=== PATIENT | male | born 1955 | race Caucasian/White ===

== ENCOUNTER → 2019-09-10 | Outpatient (CLI) | payer MEDICARE, MEDICAID ==
--- NOTE | 2019-09-10 09:43 | Diagnostic Imaging Report ---
PROCEDURE: CT head without contrast. TECHNIQUE: Multiple contiguous axial images were obtained through the brain without the use of intravenous contrast. Auto Exposure Controls were utilized during the CT exam to meet ALARA standards for radiation dose reduction. INDICATION: Stroke. Dysphagia. COMPARISON: None. FINDINGS: Large area of encephalomalacia involving most of the right frontal lobe. Advanced generalized cerebral and cerebellar parenchymal volume loss. Advanced leukoaraiosis. No CT evidence of an acute territorial infarction. No intracranial hemorrhage. No mass effect or hydrocephalus. Old abimbola hole in the right frontal calvarium. The visualized paranasal sinuses and mastoids are clear. IMPRESSION: 1. No acute intracranial CT findings. 2. Large region of encephalomalacia likely due to chronic infarct involving most of the right frontal lobe. Dictated by: Dictated on workstation # [id number]
== END ==
LOC: RAD FS 08:36
PROVIDERS: ATTEND Psychiatry & Neurology Neurology
DX: I69.391 Dysphagia following cerebral infarction (principal); G93.89 Other specified disorders of brain
CPT/HCPCS: 70450

== ENCOUNTER 2020-01-02 16:49 | Inpatient (IN) | payer MEDICARE, MEDICAID ==
[~2020-01-02] VITALS: Ht 170 cm; Wt 63.3 kg
[2020-01-02 17:00] LABS: BASOPHILS % (AUTO) 0 % (0-10); EOSINOPHILS % (AUTO) 0 % (0-10); HEMATOCRIT 37 % (40-54); HEMOGLOBIN 12.4 G/DL (13.3-17.7); LYMPHOCYTES % (AUTO) 17 % (12-44); MEAN CORPUSCULAR HEMOGLOBIN 30 PG (25-34); MEAN CORPUSCULAR HGB CONC 34 G/DL (32-36); MEAN CORPUSCULAR VOLUME 89 FL (80-99); MEAN PLATELET VOLUME 11.1 FL (7.4-10.4); MONOCYTES # (AUTO) 2.7 X 10^3 (0.0-1.0); MONOCYTES % (AUTO) 15 % (0-12); NEUTROPHILS # (AUTO) 12.7 X 10^3 (1.8-7.8); NEUTROPHILS % (AUTO) 69 % (42-75); PLATELET COUNT 222 10^3/uL (130-400); RED CELL DISTRIBUTION WIDTH 14.1 % (10.0-14.5); WHITE BLOOD COUNT 18.5 10^3/uL (4.3-11.0)
--- NOTE | 2020-01-02 17:04 | ED Hip Pain/Injury ---
General Chief Complaint: Hip/Pelvic Problems Stated Complaint: HIP INJ Source: patient Exam Limitations: no limitations History of Present Illness Date Seen by Provider: Jan 02, 2020 Time Seen by Provider: 17:01 Initial Comments To ER by [facility] with reports of left hip pain. He allegedly is from a snf in [place] for rehabilitation from stroke. He fell last night at about 2 AM, laid in bed all day. Mobile x-ray was ordered this afternoon showing an acute left intertrochanteric hip fracture. EMS gave 100 g of fentanyl in route to the hospital. He is DO NOT RESUSCITATE status. Primary care is Dr. Tena. Medical history includes major depression, hyperlipidemia, dysphasia, epilepsy (managed with Depakote) and history of CVA with encephalomalacia of majority of the right frontal lobe seen on recent brain CT. Timing/Duration: just prior to arrival Location: hip (L) Method of Injury: fell Associated Symptoms: denies symptoms Allergies and Home Medications Allergies Coded Allergies: metformin (Verified Allergy, Unknown, 01/02/20) Patient Home Medication List Home Medication List Reviewed: Yes Review of Systems Constitutional: see HPI EENTM: see HPI Respiratory: no symptoms reported Cardiovascular: no symptoms reported Genitourinary: no symptoms reported Musculoskeletal: no symptoms reported Skin: no symptoms reported Psychiatric/Neurological: No Symptoms Reported Physical Exam Vital Signs Vital Signs - First Documented 01/02/20 16:58 Temp 37.4 Pulse 123 Resp 18 B/P (MAP) 132/81 (98) Pulse Ox 94 Capillary Refill : Height, Weight, BMI Height: '" Weight: lbs. oz. kg; BMI Method: General Appearance: No Apparent Distress, WD/WN HEENT: PERRL/EOMI, TMs Normal Neck: Full Range of Motion, Normal Inspection Cardiovascular: Regular Rate, Rhythm, Normal Peripheral Pulses Respiratory: Normal Breath Sounds, No Accessory Muscle Use, No Respiratory Distress Gastrointestinal: Normal Bowel Sounds, Non Tender, Soft Extremity: No Pedal Edema, Other (left hip pain and tenderness to palpation with increasing pain with any range of motion. The posterior tibial pulse on the left is +1 as it is on the right. No other sign of injury.) Neurologic/Psychiatric: Alert, Other (He is alert and looking around the room, when asked where we are at he states "hospital" however when asked what year it is he states that he does know the year but is unable to tell me what year it is.) Skin: Normal Color, Warm/Dry Progress/Results/Core Measures Results/Orders Lab Results Laboratory Tests Test 01/02/20 16:57 Range/Units White Blood Count 18.5 H 4.3-11.0 10^3/uL Red Blood Count 4.13 L 4.35-5.85 10^6/uL Hemoglobin 12.4 L 13.3-17.7 G/DL Hematocrit 37 L 40-54 % Mean Corpuscular Volume 89 80-99 FL Mean Corpuscular Hemoglobin 30 25-34 PG Mean Corpuscular Hemoglobin Concent 34 32-36 G/DL Red Cell Distribution Width 14.1 10.0-14.5 % Platelet Count 222 130-400 10^3/uL Mean Platelet Volume 11.1 H 7.4-10.4 FL Neutrophils (%) (Auto) 69 42-75 % Lymphocytes (%) (Auto) 17 12-44 % Monocytes (%) (Auto) 15 H 0-12 % Eosinophils (%) (Auto) 0 0-10 % Basophils (%) (Auto) 0 0-10 % Neutrophils # (Auto) 12.7 H 1.8-7.8 X 10^3 Lymphocytes # (Auto) 3.0 1.0-4.0 X 10^3 Monocytes # (Auto) 2.7 H 0.0-1.0 X 10^3 Eosinophils # (Auto) 0.0 0.0-0.3 10^3/uL Basophils # (Auto) 0.0 0.0-0.1 10^3/uL Neutrophils % (Manual) 68 % Lymphocytes % (Manual) 20 % Monocytes % (Manual) 11 % Band Neutrophils 1 % Blood Morphology Comment NORMAL Prothrombin Time 14.4 12.2-14.7 SEC INR Comment 1.1 0.8-1.4 Sodium Level 139 135-145 MMOL/L Potassium Level 4.7 3.6-5.0 MMOL/L Chloride Level 112 H 98-107 MMOL/L Carbon Dioxide Level 18 L 21-32 MMOL/L Anion Gap 9 5-14 MMOL/L Blood Urea Nitrogen 17 7-18 MG/DL Creatinine 0.90 0.60-1.30 MG/DL Estimat Glomerular Filtration Rate > 60 BUN/Creatinine Ratio 19 Glucose Level 123 H 70-105 MG/DL Calcium Level 8.4 L 8.5-10.1 MG/DL Corrected Calcium 8.8 8.5-10.1 MG/DL Total Bilirubin 0.3 0.1-1.0 MG/DL Aspartate Amino Transf (AST/SGOT) 27 5-34 U/L Alanine Aminotransferase (ALT/SGPT) 15 0-55 U/L Alkaline Phosphatase 86 40-136 U/L Total Protein 6.8 6.4-8.2 GM/DL Albumin 3.5 3.2-4.5 GM/DL My Orders Orders - ANDREIA SALGUERO APRN Cbc With Automated Diff (01/02/20 16:52) Comprehensive Metabolic Panel (01/02/20 16:52) Protime With Inr (01/02/20 16:52) Ua Culture If Indicated (01/02/20 16:52) Ed Iv/Invasive Line Start (01/02/20 16:52) Landrum Cath (01/02/20 16:52) Chest 1 View, Ap/Pa Only (01/02/20 16:52) Pelvis With Left Hip 2-3 Views (01/02/20 16:52) Manual Differential (01/02/20 16:57) Ct Head/Cervical Spine Wo (01/02/20 17:04) Fentanyl Injection (Sublimaze Injection (01/02/20 17:15) Medications Given in ED Current Medications Medications Dose Ordered Sig/Apple Route Start Time Stop Time Status Last Admin Dose Admin Fentanyl Citrate 50 mcg ONCE ONCE IVP 01/02/20 17:15 01/02/20 17:16 DC 01/02/20 17:20 50 MCG Vital Signs/I&O 01/02/20 16:58 Temp 37.4 Pulse 123 Resp 18 B/P (MAP) 132/81 (98) Pulse Ox 94 Departure Communication (Admissions) NAME: MANDEEP GRAHAM [facility] REC#: [id number] PT STATUS: REG ER : 1955 PHYSICIAN: ANDREIA SALGUERO APRN ADMIT DATE: 01/02/20/ER Draft Date of Exam:01/02/20 CT HEAD/CERVICAL SPINE WO PROCEDURE: CT head and CT cervical spine without contrast. TECHNIQUE: Multiple contiguous axial images were obtained through the brain and cervical spine without the use of intravenous contrast. Sagittal and coronal reformations through the cervical spine were then performed. Auto Exposure Controls were utilized during the CT exam to meet ALARA standards for radiation dose reduction. INDICATION: Fell. Head and neck pain. CT HEAD: FINDINGS: The previous CT head exam of 09/10/2019 noted a large area of encephalomalacia involving most of the right frontal lobe. That finding is again evident and no different. There are also diffuse areas of diminished density in the periventricular white matter of both frontal lobes. That finding is similar to the prior study as well. There is no mass, shift of the midline, or hemorrhage to indicate an acute abnormality. The bone windows show no evidence for a skull fracture or for a destructive lesion. The defect in the right frontal bone seen on the previous study is again evident and no different. The orbits are symmetrical. The sinuses are generally clear. IMPRESSION: 1. There is no evidence for an acute intracranial abnormality. 2. If clinical concern regarding an underlying abnormality persists, then MRI will be recommended for further study. CT CERVICAL SPINE: FINDINGS: There are no prior studies available for comparison. The reconstructed parasagittal images show the vertebral body heights and alignment to be generally within normal limits. The intervertebral disc spaces are fairly well maintained. There is no fracture or acute bony abnormality evident. There is no evidence for a retropharyngeal edema. The thyroid gland is not enlarged, but there is a rounded area of low density within the left lobe. Ultrasound would be recommended for further study. The lung apices are clear. IMPRESSION: 1. There is no evidence for an acute bony abnormality. 2. The rounded area of low density within the left lobe of the thyroid should be further evaluated by ultrasound. Dictated on workstation # [id number] Dict: 01/02/20 1741 Trans: 01/02/20 1752 [id number] Interpreted by: MATTEO SOLO MD Electronically signed by: Impression Primary Impression: Hip fracture Qualified Codes: S72.002A - Fracture of unspecified part of neck of left femur, initial encounter for closed fracture Disposition: ADMITTED INPATIENT Condition: Stable Admissions Decision to Admit Reason: Admit from ER (Trauma) Decision to Admit/Date: Jan 02, 2020 Time/Decision to Admit Time: 17:22 Departure-Patient Inst. Referrals: MICHAEL TENA MD (PCP/Family) Primary Care Physician ANDREIA SALGUERO APRN Jan 02, 2020 17:04
[2020-01-02 17:11] LABS: ALBUMIN 3.5 GM/DL (3.2-4.5); CHLORIDE 112 MMOL/L (98-107); POTASSIUM 4.7 MMOL/L (3.6-5.0); SODIUM 139 MMOL/L (135-145)
[2020-01-02 17:12] LABS: CALCIUM 8.4 MG/DL (8.5-10.1)
[2020-01-02 17:13] LABS: GLUCOSE 123 MG/DL (70-105); INR 1.1 (0.8-1.4); PROTHROMBIN TIME PATIENT 14.4 SEC (12.2-14.7)
[2020-01-02 17:14] LABS: TOTAL PROTEIN 6.8 GM/DL (6.4-8.2)
[2020-01-02 17:15] LABS: BILIRUBIN,TOTAL 0.3 MG/DL (0.1-1.0); CARBON DIOXIDE 18 MMOL/L (21-32)
[2020-01-02] MEDS ORDERED: fentaNYL INJECTION 100 MCG/2 ML AMP IVP ONE (17:15)
[2020-01-02 17:17] LABS: ALKALINE PHOSPHATASE 86 U/L (40-136); GFR ESTIMATED > 60
[2020-01-02 17:18] LABS: BUN/CREATININE RATIO 19
[2020-01-02 17:20] LABS: ALANINE AMINOTRANSFERASE 15 U/L (0-55)
[2020-01-02] MEDS ORDERED: ACET325T38 PO (17:35)
[2020-01-02] MEDS ORDERED: TOPI50TA13 PO (17:35)
[2020-01-02] MEDS ORDERED: [UNRECOGNIZED DRUG - CODE] IV (17:35)
[2020-01-02] MEDS ORDERED: ONDN4T PO (17:35)
[2020-01-02] MEDS ORDERED: [UNRECOGNIZED DRUG - CODE] MC (17:35)
[2020-01-02] MEDS ORDERED: CITA20TA12 PO (17:35)
[2020-01-02] MEDS ORDERED: VALP250S4 PO (17:35)
[2020-01-02] MEDS ORDERED: ACET325C7 PO (17:35)
[2020-01-02] MEDS ORDERED: PHEN26CR2 RC (17:35)
[2020-01-02] MEDS ORDERED: DOCU100T2 PO (17:35)
[2020-01-02 17:45] LABS: BAND NEUTROPHILS 1 %; LYMPHOCYTES % (MANUAL) 20 %; MONOCYTES % (MANUAL) 11 %; NEUTROPHILS % (MANUAL) 68 %; RBC MORPH NORMAL
--- NOTE | 2020-01-02 17:53 | Diagnostic Imaging Report ---
PROCEDURE: CT head and CT cervical spine without contrast. TECHNIQUE: Multiple contiguous axial images were obtained through the brain and cervical spine without the use of intravenous contrast. Sagittal and coronal reformations through the cervical spine were then performed. Auto Exposure Controls were utilized during the CT exam to meet ALARA standards for radiation dose reduction. INDICATION: Fell. Head and neck pain. CT HEAD: FINDINGS: The previous CT head exam of 09/10/2019 noted a large area of encephalomalacia involving most of the right frontal lobe. That finding is again evident and no different. There are also diffuse areas of diminished density in the periventricular white matter of both frontal lobes. That finding is similar to the prior study as well. There is no mass, shift of the midline, or hemorrhage to indicate an acute abnormality. The bone windows show no evidence for a skull fracture or for a destructive lesion. The defect in the right frontal bone seen on the previous study is again evident and no different. The orbits are symmetrical. The sinuses are generally clear. IMPRESSION: 1. There is no evidence for an acute intracranial abnormality. 2. If clinical concern regarding an underlying abnormality persists, then MRI will be recommended for further study. CT CERVICAL SPINE: FINDINGS: There are no prior studies available for comparison. The reconstructed parasagittal images show the vertebral body heights and alignment to be generally within normal limits. The intervertebral disc spaces are fairly well maintained. There is no fracture or acute bony abnormality evident. There is no evidence for a retropharyngeal edema. The thyroid gland is not enlarged, but there is a rounded area of low density within the left lobe. Ultrasound would be recommended for further study. The lung apices are clear. IMPRESSION: 1. There is no evidence for an acute bony abnormality. 2. The rounded area of low density within the left lobe of the thyroid should be further evaluated by ultrasound. Dictated by: Dictated on workstation # [id number]
--- NOTE | 2020-01-02 18:06 | Diagnostic Imaging Report ---
EXAMINATION: Supine chest at 6:00 PM INDICATION: Fell, noncommunicative There are no prior studies available for comparison. The heart size is within normal limits. The lungs are generally clear. There is no evidence for failure, pneumonia or for pleural effusion. There is no sign of a pneumothorax although a small pneumothorax could be present yet undetected on a supine film such as this. The mediastinum is not widened. The osseous structures are intact. There is a neurostimulator device in place on the left with the lead from the device overlying the left lateral aspect of the lower cervical spine. IMPRESSION: There is no evidence for an acute cardiopulmonary abnormality. Dictated by: Dictated on workstation # [id number]
--- NOTE | 2020-01-02 18:09 | Diagnostic Imaging Report ---
EXAMINATION: Pelvis and left hip INDICATION: Fell, hip pain Single AP view of the pelvis and AP and lateral views of the left hip were obtained. There are no prior studies available for comparison. There is an impacted slightly displaced fracture of the left femoral neck. No other fracture or acute bony abnormality is noted. There is moderate degenerative disease of both hip joints. The sacroiliac joints are obscured by bowel gas and fecal material. The soft tissues are unremarkable. IMPRESSION: There is a slightly displaced impacted fracture of the left femoral neck. There is no acute bony abnormality noted otherwise. Dictated by: Dictated on workstation # [id number]
[2020-01-02 18:20] LABS: BILIRUBIN,URINE NEGATIVE (NEGATIVE); CLARITY,URINE SL CLOUDY; COLOR,URINE YELLOW; GLUCOSE, URINE (UA) TRACE (NEGATIVE); KETONES,URINE NEGATIVE (NEGATIVE); LEUKOCYTE ESTERASE ,URINE NEGATIVE (NEGATIVE); NITRITE,URINE NEGATIVE (NEGATIVE); PH,URINE 7.5 (5-9); PROTEIN,URINE NEGATIVE (NEGATIVE)
[2020-01-02 18:41] LABS: AMORPHOUS SEDIMENT,UR FEW AMOR PHOSPHATE /LPF; BACTERIA,URINE NEGATIVE /HPF; WBC,URINE 0-2 /HPF
--- NOTE | 2020-01-02 19:30 | NUR ---
Callum Edi admitted to room 413-1, with an admitting diagnosis of left hip fracture , on 01/02/20 from AM via stretcher, accompanied by staff .CALLUM GRAHAM introduced to surroundings, call light, bed controls, phone, TV, temperature control, lights, meal times, smoking policy, visitor policy, side rail policy, bathrooms and showers. Patient Rights given to patient in the handbook.CALLUM GRAHAM verbalizes understanding that [facility] is not responsible for the loss or damage to any personal effects or valuables that are kept in the patients posession during their hospitalization. Addendum: 01/02/20 at 2208 by DEVANG DAMIAN RN Callum Damian
[2020-01-02 19:43] VITALS: BP 145/91
[2020-01-02 20:00] VITALS: BP 145/91
[2020-01-02] MEDS ORDERED: ONDANSETRON 4 MG/2 ML (SDV) Z0FRAN IV PRN (20:00)
[2020-01-02] MEDS ORDERED: ORPHENADRINE 60 MG/2 ML (NORFLEX) AMP (ED ONLY) IV PRN (20:00)
[2020-01-02] MEDS ORDERED: CATHETER FLUSH 10 ML SYR IV PRN (20:00)
[2020-01-02] MEDS ORDERED: LOPERAMIDE 2 MG (IMODIUM) TABLET PO PRN (20:30)
[2020-01-02] MEDS ORDERED: ALPRAZolam 0.25 MG (XANAX) TAB PO PRN (20:30)
[2020-01-02] MEDS ORDERED: IBUPROFEN TABLET 200 MG TAB PO PRN (20:30)
[2020-01-02] MEDS ORDERED: ACETAMINOPHEN 500 MG TAB (TYLENOL) PO PRN (20:30)
[2020-01-02] MEDS ORDERED: DOCUSATE SODIUM 100 MG (COLACE) CAP PO PRN (20:30)
[2020-01-02] MEDS ORDERED: diphenhydrAMINE 25 MG TAB (BENADRYL) PO PRN (20:30)
[2020-01-02] MEDS ORDERED: HYDROcodone/APAP 5 MG/325 MG (LORTAB) TAB PO PRN (20:30)
[2020-01-02] MEDS ORDERED: MELATONIN 3 MG TABLET PO PRN (20:30)
[2020-01-02] MEDS ORDERED: CALCIUM CARBONATE 500 MG (TUMS) TAB.CHEW PO PRN (20:30)
[2020-01-02] MEDS ORDERED: SENNA W/DOCUSATE (SENOKOT S) TABLET PO SCH (21:00)
[2020-01-02] MEDS: fentaNYL INJECTION 100 MCG/2 ML AMP IV PRN (21:01)
[2020-01-02] MEDS: LACTATED RINGERS 1,000 ML IV SCH (21:04)
[2020-01-02] MEDS: polyethylene glycoL POWDER 17 GM (MIRALAX) PACK PO SCH (21:04)
--- OUTSIDE RECORDS SUMMARY | 2020-01-02 21:46 | XMS REPORT | Continuity of Care Document ---
Author Organization Unknown Address Unknown Phone Unavailable Allergies Active Description Code Type Severity Reaction Onset Reported/Identified Relationship to Patient Clinical Status Yes fentanyl [id number] Drug Allergy Unknown N/A 01/02/2020 Yes metformin [id number] Drug Allergy Unknown N/A 01/02/2020 Medications There is no data. 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 FOLLOWING CEREBRAL INFARCTION 09/23/2019 JAIME CAR MD K Ot G93.89 OTHER SPECIFIED DISORDERS OF BRAIN 09/23/2019 JAIME CAR MD K Ot 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 FOLLOWING CEREBRAL INFARCTION 11/07/2019 JAIME CAR MD K Ot G93.89 OTHER SPECIFIED DISORDERS OF BRAIN 11/07/2019 JAIME CAR MD K Ot 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 FOLLOWING CEREBRAL INFARCTION 11/07/2019 JAIME CAR MD K Ot G93.89 OTHER SPECIFIED DISORDERS OF BRAIN 11/07/2019 JOCELINE CLARK JAIME K Ot 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 FOLLOWING CEREBRAL INFARCTION 11/07/2019 JOCELINE CLARK JAIME K Ot G93.89 OTHER SPECIFIED DISORDERS OF BRAIN 11/07/2019 JOCELINE CLARK JAIME K Ot 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 FOLLOWING CEREBRAL INFARCTION 11/26/2019 JAIME CAR MD K Ot G93.89 OTHER SPECIFIED DISORDERS OF BRAIN 11/26/2019 JOCELINE CLARK JAIME K Ot 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 FOLLOWING CEREBRAL INFARCTION 11/26/2019 JAIME CAR MD K Ot G93.89 OTHER SPECIFIED DISORDERS OF BRAIN 11/26/2019 JAIME CAR MD Ot 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 FOLLOWING CEREBRAL INFARCTION 11/26/2019 JAIME CAR MD Ot G93.89 OTHER SPECIFIED DISORDERS OF BRAIN 11/26/2019 JAIME CAR MD Ot 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 FOLLOWING CEREBRAL INFARCTION 11/26/2019 JAIME CAR MD, Ot G93.89 OTHER SPECIFIED DISORDERS OF BRAIN 11/26/2019 JAIME CAR MD Ot 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 FOLLOWING CEREBRAL INFARCTION 11/26/2019 JAIME CAR MD, Ot G93.89 OTHER SPECIFIED DISORDERS OF BRAIN 11/26/2019 JAIME CAR MD, Ot 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 Results Test Result Range VALPROIC ACID/DEPAKOTE - 10/22/18 12:44 VALPROIC ACID 53.8 mg/L 50.0-100.0 CMP - 12/12/18 09:55 GLUCOSE 168 mg/dL 65-99 UREA NITROGEN (BUN) 24 mg/dL 7-25 CREATININE 1.07 mg/dL 0.70-1.25 eGFR NON-AFR. PANAMANIAN 73 mL/min/1.73m2 > OR = 60 eGFR 85 mL/min/1.73m2 > OR = 60 BUN/CREATININE RATIO NOT APPLICABLE (calc) 6-22 SODIUM 141 mmol/L 135-146 POTASSIUM 4.3 mmol/L 3.5-5.3 CHLORIDE 106 mmol/L 98-110 CARBON DIOXIDE 26 mmol/L 20-32 CALCIUM 9.3 mg/dL 8.6-10.3 PROTEIN, TOTAL 6.5 g/dL 6.1-8.1 ALBUMIN 3.8 g/dL 3.6-5.1 GLOBULIN 2.7 g/dL (calc) 1.9-3.7 ALBUMIN/GLOBULIN RATIO 1.4 (calc) 1.0-2. 5 BILIRUBIN, TOTAL 0.4 mg/dL 0.2-1.2 ALKALINE PHOSPHATASE 53 U/L 40-115 AST 15 U/L 10-35 ALT 10 U/L 9-46 CBC - 12/12/18 09:55 WHITE BLOOD CELL COUNT 8.5 Thousand/uL 3 .8-10.8 RED BLOOD CELL COUNT 4.73 Million/uL 4.2 0-5.80 HEMOGLOBIN 15.0 g/dL 13.2-17.1 HEMATOCRIT 45.1 % 38.5-50.0 MCV 95.3 fL 80.0-100.0 MCH 31.7 pg 27.0-33.0 MCHC 33.3 g/dL 32.0-36.0 RDW 13.1 % 11.0-15.0 PLATELET COUNT 147 Thousand/uL 140-400 MPV 10.8 fL 7.5-12.5 ABSOLUTE NEUTROPHILS 4267 cells/uL 1500- 7800 ABSOLUTE LYMPHOCYTES 3273 cells/uL 850-3 900 ABSOLUTE MONOCYTES 774 cells/uL 200-950 ABSOLUTE EOSINOPHILS 128 cells/uL 15-500 ABSOLUTE BASOPHILS 60 cells/uL 0-200 NEUTROPHILS 50.2 % NRG LYMPHOCYTES 38.5 % NRG MONOCYTES 9.1 % NRG EOSINOPHILS 1.5 % NRG BASOPHILS 0.7 % NRG CBC - 12/20/18 09:05 WHITE BLOOD CELL COUNT 10.3 Thousand/uL 3.8-10.8 RED BLOOD CELL COUNT 4.56 Million/uL 4.2 0-5.80 HEMOGLOBIN 14.2 g/dL 13.2-17.1 HEMATOCRIT 43.2 % 38.5-50.0 MCV 94.7 fL 80.0-100.0 MCH 31.1 pg 27.0-33.0 MCHC 32.9 g/dL 32.0-36.0 RDW 13.0 % 11.0-15.0 PLATELET COUNT 150 Thousand/uL 140-400 MPV 10.3 fL 7.5-12.5 ABSOLUTE NEUTROPHILS 5644 cells/uL 1500- 7800 ABSOLUTE LYMPHOCYTES 3533 cells/uL 850-3 900 ABSOLUTE MONOCYTES 896 cells/uL 200-950 ABSOLUTE EOSINOPHILS 144 cells/uL 15-500 ABSOLUTE BASOPHILS 82 cells/uL 0-200 NEUTROPHILS 54.8 % NRG LYMPHOCYTES 34.3 % NRG MONOCYTES 8.7 % NRG EOSINOPHILS 1.4 % NRG BASOPHILS 0.8 % NRG VALPROIC ACID/DEPAKOTE - 04/22/19 08:01 VALPROIC ACID 37.9 mg/L 50.0-100.0 VALPROIC ACID/DEPAKOTE - 07/22/19 08:05 VALPROIC ACID 68.8 mg/L 50.0-100.0 Complete blood count (CBC) with automate d white blood cell (WBC) differential - 01/02/20 16:57 Blood leukocytes automated count (number/volume) 18.5 10*3/uL 4.3-11.0 Blood erythrocytes automated count (number/volume) 4.13 10*6/uL 4.35-5.85 Venous blood hemoglobin measurement (mass/volume) 12.4 g/dL 13.3-17.7 Blood hematocrit (volume fraction) 37 % 40-54 Automated erythrocyte mean corpuscular volume 89 [ foz_us] 80-99 Automated erythrocyte mean corpuscular h emoglobin (mass per erythrocyte) 30 pg 25-34 Automated erythrocyte mean corpuscular h emoglobin concentration measurement (mass/volume) 34 g/dL 32-36 Automated erythrocyte distribution width ratio 14. 1 % 10.0- 14.5 Automated blood platelet count (count/volume) 222 10*3/uL 130-400 Automated blood platelet mean volume measurement 11.1 [foz_us] 7.4-10.4 Automated blood neutrophils/100 leukocytes 69 % 42-75 Automated blood lymphocytes/100 leukocytes 17 % 12-44 Blood monocytes/100 leukocytes 15 % 0-12 Automated blood eosinophils/100 leukocytes 0 % 0-10 Automated blood basophils/100 leukocytes 0 % 0-10 Blood neutrophils automated count (number/volume) 12.7 10*3 1.8-7.8 Blood lymphocytes automated count (number/volume) 3.0 10*3 1.0-4.0 Blood monocytes automated count (number/volume) 2. 7 10*3 0.0-1.0 Automated eosinophil count 0.0 10*3/uL 0 .0-0.3 Automated blood basophil count (count/volume) 0.0 10*3/uL 0.0-0.1 Comprehensive metabolic panel - 01/02/20 16:57 Serum or plasma sodium measurement (moles/volume) 139 mmol/L 135-145 Serum or plasma potassium measurement (moles/volume) 4.7 mmol/L 3.6-5.0 Serum or plasma chloride measurement (moles/volume) 112 mmol/L 98-107 Carbon dioxide 18 mmol/L 21-32 Serum or plasma anion gap determination (moles/volume) 9 mmol/L 5-14 Serum or plasma urea nitrogen measurement (mass/volume ) 17 mg/dL 7-18 Serum or plasma creatinine measurement (mass/volume) 0.90 mg/dL 0.60-1.30 Serum or plasma urea nitrogen/creatinine mass ratio 19 NRG Serum or plasma creatinine measurement w ith calculation of estimated glomerular filtration rate > NRG Serum or plasma glucose measurement (mass/volume) 123 mg/dL 70-105 Serum or plasma calcium measurement (mass/volume) 8.4 mg/dL 8.5-10.1 Serum or plasma total bilirubin measurement (mass/volu me) 0.3 mg/dL 0.1-1.0 Serum or plasma alkaline phosphatase daljit surement (enzymatic activity/volume) 86 U/L 40-136 Serum or plasma aspartate aminotransfera se measurement (enzymatic activity/volume) 27 U/L 5-34 Serum or plasma alanine aminotransferase measurement (enzymatic activity/volume) 15 U/L 0-55 Serum or plasma protein measurement (mass/volume) 6.8 g/dL 6.4-8.2 Serum or plasma albumin measurement (mass/volume) 3.5 g/dL 3.2-4.5 CALCIUM CORRECTED 8.8 mg/dL 8.5-10.1 PT panel in platelet poor plasma by coag ulation assay - 01/02/20 16:57 Prothrombin time (PT) in platelet poor plasma by coagu lation assay 14.4 s 12.2-14.7 INR in platelet poor plasma or blood by coagulation as say 1.1 0.8-1.4 Manual absolute plasma cell count - 12/21 09/11 16:57 Blood monocytes/100 leukocytes 11 % NRG Manual blood segmented neutrophils/100 leukocytes 68 % NRG Blood band neutrophils/100 leukocytes 1 % NRG Manual blood lymphocytes/100 leukocytes 20 % NRG Blood erythrocyte morphology finding identification NORMAL NRG Complete urinalysis with reflex to cultu re - 01/02/20 18:05 Urine color determination YELLOW NRG Urine clarity determination SL CLOUDY N RG Urine pH measurement by test strip 7.5 5-9 Specific gravity of urine by test strip 1.015 1.016-1.022 Urine protein assay by test strip, semi-quantitative NEGATIVE NEGATIVE Urine glucose detection by automated test strip TR MAURO NEGATIVE Erythrocytes detection in urine sediment by light micr oscopy NEGATIVE NEGATIVE Urine ketones detection by automated test strip NE GATIVE NEGATIVE Urine nitrite detection by test strip NEGATIVE NEGATIVE Urine total bilirubin detection by test strip NEGA TIVE NEGATIVE Urine urobilinogen measurement by automated test strip (mass/volume) 1.0 mg/dL < = 1.0 Urine leukocyte esterase detection by dipstick NEG ATIVE NEGATIVE Automated urine sediment erythrocyte cou nt by microscopy (number/high power field) NONE NRG Automated urine sediment leukocyte count by microscopy (number/high power field) [HPF] NRG Bacteria detection in urine sediment by light microsco py NEGATIVE NRG Crystals detection in urine sediment by light microsco py PRESENT NRG Casts detection in urine sediment by light microscopy NONE NRG Mucus detection in urine sediment by light microscopy NEGATIVE NRG Complete urinalysis with reflex to culture NO NRG Amorphous sediment detection in urine sediment by ligh t microscopy FEW SONIA PHOSPHATE NRG Encounters ACCT No. Visit Date/Time Discharge Status Pt. Type Provider Facility Loc./Unit Complaint [id number] 09/09/2019 11:39:00 09/09/2019 23:59 :00 DIS Outpatient JAIME CAR [id number] 12/20/2018 13:30:00 12/20/2018 23:59: 59 CLS Outpatient MICHAEL TENA [facility] [id number] 07/22/2019 08:00:00 Document Registration [id number] 04/22/2019 17:45:00 Document Registration [id number] 12/20/2018 08:45:00 Document Registration [id number] 12/12/2018 09:45:00 Document Registration [id number] 10/22/2018 17:00:00 Document Registration [id number] 10/02/2019 09:45:00 23:59:59 CLS Preadmit MICHAEL TENA MD [facility] RAD DYSPHAGIA [id number] 09/10/2019 08:36:00 23:59:59 CLS Outpatient JAIEM CAR MD [facility] RAD FS CVA,DYSPHAGIA [id number] 01/02/2020 17:18:[address] Inpatient NGO DO, BERENICE [facility] [place] [address] L HIP FX
--- OUTSIDE RECORDS SUMMARY | 2020-01-02 21:46 | XMS REPORT ---
Author Author Callum TENA Organization [facility] Address [address] [place] [address] Care Team Providers Care Siebel Solution Architect Name Role Phone MICHAEL TENA Unavailable PROBLEMS Type Condition ICD9-CM Code [id number] Code Onset Dates Condition S tatus SNOMED Code Problem Cognitive communication deficit R41.841 Active 470101706 Problem Esophagitis, unspecified K20.9 Activ e 97334115 Problem Generalized epilepsy G40.309 Active 52064969 Problem Peripheral vascular disease, unspecified I73.9 Active 096181672 Problem Major depressive disorder, recurrent, mild F33.0 Active 864572393 Problem HLD (hyperlipidemia) E78.5 Active 40018479 Problem Hydronephrosis with obstructing calculus N13.2 Active 151091304 Problem Absence, autonomic G40.109 Active Problem Dysphagia, unspecified type R13.10 Ac tive 11794769 ALLERGIES No Information ENCOUNTERS Encounter Location Date Diagnosis [address] [id number] [address] November, [facility] [address] [place] [address] 11 Sep, 2019 penitentiary resident Z59.3 ; Peripheral vascular disease, unspecified I73.9 ; Major depressive disorder, recurrent, mild F33.0 ; Generalized epilepsy G40.309 ; Cognitive communication deficit R41.841 and Hydronephrosis with obstructing calculus N13.[address] [id number] [address] Sep, [address] [id number], [place] [address] Sep, [address] [id number] [address] Aug, Dysphagia, unspecified type R13.[address] [facility] [address] [address] Jul, penitentiary resident Z59.3 ; Generalized epilepsy G40.309 ; Hydronephrosis with obstructing calculus N13.2 ; HLD (hyperlipidemia) E78.5 and Major depression, chronic F32.[address] [id number], [place] [address] Jun, Generalized epilepsy G40.[address] [id number], [place] [address] Jun, Generalized epilepsy G40.[address] [id number], [place] [address] Jun, [facility] [address] [address] May, penitentiary resident Z59.3 ; Major depression, chronic F32.9 and HLD (hyperlipidemia) E78.5 [facility] [address] [facility] [id number], [place] [address] May, [address] [id number] [address] May, [address] [id number], [place] [address] Apr, Absence, autonomic G40.[address] [facility] [address] [address] Mar, penitentiary resident Z59.3 ; Major depression, chronic F32.9 ; Generalized epilepsy G40.309 ; Cognitive communication deficit R41.841 and HLD (hyperlipidemia) E78.[address] [id number], [place] [address] Feb, [address] [id number], [place] [address] Jan, penitentiary resident Z59.3 ; Major depression, chronic F32.9 ; Esophagitis, unspecified K20.9 ; HLD (hyperlipidemia) E78.5 ; Cognitive communication deficit R41.841 and Hemoptysis R04.[address] [id number] [address] Dec, [address] [id number] [address] November, penitentiary resident Z59.3 ; Major depression, chronic F32.9 ; Esophagitis, unspecified K20.9 ; HLD (hyperlipidemia) E78.5 ; Cognitive communication deficit R41.841 and Hemoptysis R04.[address] [id number] [address] November, History of CVA (cerebrovascu lar accident) Z86.73 ; Hydronephrosis with obstructing calculus N13.2 ; Generalized epilepsy G40.309 and Projectile vomiting, presence of nausea not specified R11.[address] [id number] [address] November, Projectile vomiting, presenc e of nausea not specified R11.[address] [id number] [address] November, HLD (hyperlipidemia) E78.[address] [id number], [place] [address] November, HLD (hyperlipidemia) E78.[address] [id number], [place] [address] Oct, Absence, autonomic G40.109 [facility] [address] [place] [address] Sep, penitentiary resident Z59.3 ; Major depression, chronic F32.9 ; Esophagitis, unspecified K20.9 ; HLD (hyperlipidemia) E78.5 ; Generalized epilepsy G40.309 and Cognitive communication deficit R41.841 IMMUNIZATIONS No Known Immunizations SOCIAL HISTORY Never Assessed REASON FOR VISIT PLAN OF CARE VITAL SIGNS MEDICATIONS Unknown Medications RESULTS Name Result Date Reference Range VALPROIC ACID/DEPAKOTE 2018-10-22 VALPROIC ACID 53.8 50.0-100.0 PROCEDURES Procedure Date Ordered Result Body Site VENIPUNCT, ROUTINE* October 22, 2018 ASSAY, DIPROPYLACETIC ACID October 22, 2018 INSTRUCTIONS MEDICATIONS ADMINISTERED No Known Medications MEDICAL (GENERAL) HISTORY Type Description Date Medical History constipation Medical History hyperlipidemia Medical History epilepsy & recurrent seizures Medical History major depressive disorder Medical History personal hx of transient is chemic attack (TIA), and cerebral infarction without residual deficits
--- OUTSIDE RECORDS SUMMARY | 2020-01-02 22:21 | XMS REPORT | Continuity of Care Document ---
Author Organization Unknown Address Unknown Phone Unavailable Allergies Active Description Code Type Severity Reaction Onset Reported/Identified Relationship to Patient Clinical Status Yes fentanyl [id number] Drug Allergy Unknown N/A 01/02/2020 Yes metformin [id number] Drug Allergy Unknown N/A 01/02/2020 Medications There [...] 7-25 CREATININE 1.07 mg/dL 0.70-1.25 eGFR NON-AFR. MALIAN 73 mL/min/1.73m2 > OR = 60 eGFR [...] Status Pt. Type Provider Facility Loc./Unit Complaint [id number] 09/09/2019 11:39:00 09/09/2019 23:59 :00 DIS Outpatient JAIME CAR [id number] 12/20/2018 13:30:00 12/20/2018 23:59: 59 CLS Outpatient MICHAEL TENA [facility] [id number] 07/22/2019 08:00:00 Document Registration [id number] 04/22/2019 17:45:00 Document Registration [id number] 12/20/2018 08:45:00 Document Registration [id number] 12/12/2018 09:45:00 Document Registration [id number] 10/22/2018 17:00:00 Document Registration [id number] 10/02/2019 09:45:00 23:59:59 CLS Preadmit MICHAEL TENA MD [facility] RAD DYSPHAGIA [id number] 09/10/2019 08:36:00 23:59:59 CLS Outpatient JAIME CAR MD [facility] RAD FS CVA,DYSPHAGIA [id number] 01/02/2020 17:18:[address] Inpatient NGO DO, BERENICE [facility] [place] 4TH L HIP FX
[2020-01-03] VITALS (13 sets, daily range): BP systolic 92–131; BP diastolic 52–83
--- NOTE | 2020-01-03 00:46 | CONSULTATION REPORT ---
DATE OF SERVICE: 01/02/2020 INPATIENT CONSULTATION REASON FOR CONSULTATION: Left femoral neck fracture. HISTORY OF PRESENT ILLNESS: The patient is a 64-year-old gentleman who is a [facility] resident due to a CVA. Apparently, he fell last night. Mobile x-rays were apparently ordered and he was found to have a hip fracture and sent to our Emergency Department from an outside town. PAST MEDICAL HISTORY: Significant for major depression, hyperlipidemia, dysphagia, epilepsy and history of CVA with encephalomalacia. A CT scan was obtained in the Emergency Department, was found to have no acute abnormalities. PHYSICAL EXAMINATION: GENERAL: The patient is nonverbal. EXTREMITIES: On exam, left hip is held in a flexed position. His pain is in internal and external rotation. No skin lesions are noted. Pulses are symmetric. He has spontaneous dorsiflexion and plantarflexion of the toes. Radiographs reveal a displaced left femoral neck fracture. IMPRESSION: Left displaced femoral neck fracture. PLAN: Left hip bipolar replacement. The risks, benefits, options, ramifications and recovery were discussed with the patient's . She understands and wishes to proceed. Job ID: [id number] DocumentID: [id number] Dictated Date: 01/02/2020 19:32:33 Appeals Rn Date: 01/03/2020 00:46:00 Dictated By: WILLY EVANS MD
[2020-01-03 05:07] LABS: BASOPHILS % (AUTO) 0 % (0-10); EOSINOPHILS % (AUTO) 0 % (0-10); HEMATOCRIT 35 % (40-54); HEMOGLOBIN 11.4 G/DL (13.3-17.7); LYMPHOCYTES # (AUTO) 3.2 X 10^3 (1.0-4.0); LYMPHOCYTES % (AUTO) 21 % (12-44); MEAN CORPUSCULAR HEMOGLOBIN 30 PG (25-34); MEAN CORPUSCULAR HGB CONC 33 G/DL (32-36); MEAN CORPUSCULAR VOLUME 91 FL (80-99); MONOCYTES # (AUTO) 2.8 X 10^3 (0.0-1.0); MONOCYTES % (AUTO) 18 % (0-12); NEUTROPHILS # (AUTO) 9.6 X 10^3 (1.8-7.8); NEUTROPHILS % (AUTO) 61 % (42-75); PLATELET COUNT 187 10^3/uL (130-400); WHITE BLOOD COUNT 15.6 10^3/uL (4.3-11.0)
[2020-01-03 05:18] LABS: ALBUMIN 3.3 GM/DL (3.2-4.5); CHLORIDE 110 MMOL/L (98-107); POTASSIUM 4.2 MMOL/L (3.6-5.0); SODIUM 137 MMOL/L (135-145)
[2020-01-03 05:19] LABS: CALCIUM 8.6 MG/DL (8.5-10.1)
[2020-01-03 05:20] LABS: GLUCOSE 108 MG/DL (70-105); TOTAL PROTEIN 6.4 GM/DL (6.4-8.2)
[2020-01-03 05:21] LABS: CARBON DIOXIDE 19 MMOL/L (21-32)
[2020-01-03 05:22] LABS: BILIRUBIN,TOTAL 0.5 MG/DL (0.1-1.0)
[2020-01-03 05:24] LABS: ALKALINE PHOSPHATASE 78 U/L (40-136); CREATININE SERUM 0.82 MG/DL (0.60-1.30); GFR ESTIMATED > 60
[2020-01-03 05:25] LABS: BUN/CREATININE RATIO 21
[2020-01-03 05:27] LABS: ALANINE AMINOTRANSFERASE 11 U/L (0-55)
[2020-01-03] MEDS ORDERED: BUPIVACAINE 0.5% 30 ML (SENSORCAINE) VIAL ONE (07:14)
--- NOTE | 2020-01-03 07:29 | Progress Note-Pre Operative ---
Pre-Operative Progress Note H&P Reviewed The H&P was reviewed, patient examined and no changes noted. Date Seen by Provider: Jan 03, 2020 Time Seen by Provider: : Date H&P Reviewed: Jan 03, 2020 Time H&P Reviewed: : Pre-Operative Diagnosis: displaced left femoral neck fracture WILLY EVANS MD Jan 03, 2020 07:29
--- NOTE | 2020-01-03 07:30 | Progress Note-Post Operative ---
Post-Operative Progess Note Surgeon (s)/Research Project Manager (s) Surgeon WILLY EVANS MD Research Project Manager: Raj Murrell Pre-Operative Diagnosis displaced left femoral neck fracture Post-Operative Diagnosis displaced left femoral neck fracture Procedure & Operative Findings Date of Procedure 01/03/20 Procedure Performed/Findings left hip bipolar replacement Anesthesia Type GETA Estimated Blood Loss Estimated blood loss (mL): 200 ml Specimens/Packing Specimens Removed femoral head Packing: none WILLY EVANS MD Jan 03, 2020 07:30
--- NOTE | 2020-01-03 07:30 | NUR ---
TO OR PER BED.
[2020-01-03] MEDS: LACTATED RINGERS 1,000 ML IV PRN ×2 (07:35→09:25)
[2020-01-03] MEDS ORDERED: ceFAZolin 2 GM IV Premixed 50 ML IV NR (07:45)
[2020-01-03] MEDS ORDERED: ONDANSETRON 4 MG/2 ML (SDV) Z0FRAN IVP PRN (07:45)
[2020-01-03] MEDS ORDERED: diphenhydrAMINE 50 MG/ML INJ (BENADRYL) IVP PRN (07:45)
[2020-01-03] MEDS ORDERED: TEMAZEPAM 15 MG (RESTORIL) CAP PO PRN (07:45)
[2020-01-03] MEDS ORDERED: ACETAMINOPHEN 325 MG TABLET PO PRN (07:45)
[2020-01-03] MEDS ORDERED: fentaNYL INJECTION 100 MCG/2 ML AMP ONE (07:48)
--- NOTE | 2020-01-03 08:20 | History & Physical-Hospitalist ---
History of Present Illness HPI/Chief Complaint CC: Left hip fracture HPI: This is a 64yoWM [place] patient of Dr José in [facility] where he has lived since CVA who presented to [facility] after [place] xray obtained revealing left hip fracture s/p fall. Patient is currently post op and drowsy and additionally he is a poor historian so his is at bedside who answers some questions. Landrum is in place. Repair went uncomplicated. No pain reported currently. already asking if she can bring him back to the NH in her car and I told her we would take one day at a time and see where we were at time of DC. Source: family, RN/MD Exam Limitations: no limitations Date Seen 01/03/20 Time Seen by a Provider: 10:00 Attending Physician Zuleika Ngo Pankaj K MD Referring Physician Date of Admission Jan 02, 2020 at 17:18 Home Medications & Allergies Home Medications Reviewed patient Home Medication Reconciliation performed by pharmacy medication reconciliations sample prep technician and/or nursing. Patients Allergies have been reviewed. Allergies Allergies Coded Allergies metformin (Verified Allergy, Unknown, 01/02/20) Past Qiwggin-Inborz-Tqinto Hx Past Med/Social Hx: Reviewed Nursing Past Med/Soc Hx, Reviewed and Corrections made Patient Social History Marrital Status: Employed/Student: retired Alcohol Use: Denies Use Recreational Drug Use: No Smoking Status: Never a Smoker Recent Hopitalizations: No Seasonal Allergies Seasonal Allergies: No Past Medical History Cardiac: High Cholesterol Neurological: Seizure Disorder, Stroke, TIA Gastrointestinal: Chronic Constipation Psychosocial: Depression Review of Systems Constitutional: see HPI Musculoskeletal: joint pain Physical Exam Physical Exam Vital Signs Vital Signs - First Documented 01/02/20 19:16 O2 Delivery Nasal Cannula O2 Flow Rate 2.00 Capillary Refill : Less Than 3 SecondsLess Than 3 Seconds Height, Weight, BMI Height: '" Weight: lbs. oz. kg; 21.90 BMI Method: General Appearance: No Apparent Distress, Chronically ill, Other (borderline microcephaly?) Respiratory: Chest Non Tender, Lungs Clear, Normal Breath Sounds, No Accessory Muscle Use, No Respiratory Distress Cardiovascular: Regular Rate, Rhythm, No Edema, No Gallop, No JVD, No Murmur, Normal Peripheral Pulses Neurologic/Psychiatric: Alert, Disoriented Results Results/Procedures Labs Laboratory Tests 6/12/20 16:57 01/03/20 04:45 Patient resulted labs reviewed. Assessment/Plan Admission Diagnosis Assessment: Left hip fracture s/p uncomplicated repair Dr Sommer POD # 0 h/o CVA HTN Seizures? Plan: Landrum Pain meds IVF Monitor closely Admission Status: Inpatient Order (span 2 midnights) Reason for Inpatient Admission: hip fx Diagnosis/Problems Diagnosis/Problems (1) Hip fracture, left (2) History of CVA (cerebrovascular accident) (3) Hypertension (4) Seizure (5) Leukocytosis Clinical Quality Measures DVT/VTE Risk/Contraindication: Risk Factor Score Per Nursin RFS Level Per Nursing on Admit: 4+=Very High Contraindications-Pharm: Other *list below* Other: surgery 01/03/20 0800 ZULEIKA NGO DO Jan 03, 2020 08:20
[2020-01-03] MEDS ORDERED: HYDROmorphone 2 MG/ML VIAL (DILAUDID) ONE (08:27)
[2020-01-03] MEDS ORDERED: proPOfol 200 MG/20 ML (DIPRIVAN) VIAL IV ONE (09:08)
[2020-01-03] MEDS ORDERED: SUCCINYLCHOLINE INJ 100 MG/5 ML SYR ONE (09:08)
[2020-01-03] MEDS ORDERED: PHENYLEPHRINE 100 MCG/ML 10 ML (ANESTHESIA) SYR ONE (09:08)
[2020-01-03] MEDS ORDERED: SEVOFLURANE (ULTANE) 15 ML INHAL SOLN ONE ×2 (09:08→10:45)
[2020-01-03] MEDS ORDERED: LIDOCAINE PF 2% 5 ML (XYLOCAINE) VIAL ONE (09:08)
[2020-01-03] MEDS ORDERED: MIDAZOLAM 2 MG/2 ML (VERSED) VIAL ONE (09:19)
--- NOTE | 2020-01-03 09:46 | OPERATIVE REPORT ---
DATE OF SERVICE: 01/03/2020 PREOPERATIVE DIAGNOSIS: Displaced left femoral neck fracture. POSTOPERATIVE DIAGNOSIS: Displaced left femoral neck fracture. PROCEDURE PERFORMED: Left hip bipolar replacement. SURGEON: Andres Evans MD. FINANCIAL AID DIRECTOR: Raj Murrell, who assisted throughout the procedure and closed the incision. ANESTHESIA: General endotracheal by Deana Pennington CRNA. ESTIMATED BLOOD LOSS: 200 mL. DRAINS: None. COMPLICATIONS: None. POSTOPERATIVE PLAN: Hip precautions with weightbearing as tolerated. MATERIALS: DePuy/Synthes pressfit size 7 stem with a 50 mm liner and a neutral head/neck. STATEMENT OF MEDICAL NECESSITY: The patient is a 64-[facility]-old [facility] resident, who is status post cerebrovascular accident, who presented from an outside facility with left hip pain and was found to have a displaced left femoral neck fracture. Because of this, the patient's elected to proceed with surgical intervention. DESCRIPTION OF PROCEDURE: After risks and benefits of the procedure were discussed and questions were answered, an informed consent was signed and placed on the chart. The operative site was confirmed in the preoperative holding area initialed by the surgeon. The patient was then transferred to the operating room and after adequate levels of general endotracheal anesthetic were obtained, a timeout was called, confirming the operative site. The patient was carefully placed in the right lateral decubitus position, being careful to place an axillary roll and pad all bony prominences. The left hip and lower extremity were prepped and draped in the usual sterile fashion. A standard anterior lateral approach was utilized. Hemostasis was obtained with cautery. The iliotibial band was incised in line with the incision. The abductor tendon was released leaving 1 cm cuff for later reapproximation. The hip capsulotomy was performed. The femoral head was removed and the femoral neck was debrided with a rongeur. The hip joint was copiously irrigated with pulse lavage ensuring there were no loose bodies. The proximal femur was then prepared with a box chisel followed by the T-handle reamer and broaches. A #7 broach provided excellent fill proximally. This was then trialled with a neutral head and 50 mm liner. The hip was taken through a range of motion with no instability noted and no impingement noted. Leg lengths clinically appeared to be equal. The trials were removed. The joint was further irrigated with a pulse lavage. A #7 stem was placed in approximately 15 degrees of anteversion. The neck region was then irrigated and dried and the head liner was placed. The hip was then reduced and found to be stable in all planes with no impingement noted and no instability in any plane noted. The joint was further irrigated with a pulse lavage. No loose bodies were noted. The hip capsule and abductor were reapproximated using a #5 Tevdek in smuolw-nb-hdjle interrupted fashion with an excellent repair obtained. Subcutaneous tissues were irrigated using a total of 3 liters throughout the procedure. The IT band was closed in a running fashion with #1 Vicryl, 0 Vicryl was used to deep subcutaneous tissue, 2-0 Vicryl for the superficial subcutaneous tissue and stacie were used on the skin. A soft dressing and abduction pillow were applied and the patient was transferred to the recovery room awake and in a stable condition. Job ID: [id number] DocumentID: [id number] Dictated Date: 01/03/2020 09:25:29 Shoder Filler Date: 01/03/2020 09:46:10 Dictated By: ANDRES EVANS MD
--- NOTE | 2020-01-03 10:30 | NUR ---
RETURNED FROM [facility] PER BED. DROWSY BUT ANSWERS QUESTIONS. SKIN W/D. RESP. REGULAR. WILKS CATH WITH CLEAR YELLOW URINE. LEFT HIP BULKY DRESSING IN PLACE WITHOUT DRAINAGE NOTED. ALLAN BHATT ON. SCD'S ON. O2 ON AT 3 L PER MIN PER N/C. IV PER RIGHT F/A INFUSING WELL.
--- NOTE | 2020-01-03 10:36 | Diagnostic Imaging Report ---
CLINICAL HISTORY: Postop left hip arthroplasty. COMPARISON: 01/02/2020. TECHNIQUE: Single AP view of the left hip was obtained. FINDINGS: Postsurgical changes of left hip arthroplasty are visualized. No evidence of periprosthetic fracture. No acute fracture is seen in the included pelvis and left hip. Skin stacie are seen along the lateral aspect of the left hip. Edema and subcutaneous emphysema are seen in the soft tissue surrounding the left hip. IMPRESSION: 1. Expected postsurgical changes of left hip arthroplasty. Dictated by: Dictated on workstation # [id number]
--- NOTE | 2020-01-03 10:38 | Physical Therapy Evaluation ---
PT Evaluation-General Medical Diagnosis Admission Date Jan 02, 2020 at 17:18 Medical Diagnosis: left hip fracture Onset Date: Jan 02, 2020 Therapy Diagnosis Therapy Diagnosis: debility/weakness Precautions Precautions/Isolations: Fall Prevention, Standard Precautions Weight Bear Status Right Lower Extremity: Right Full Weight Bearing Left Lower Extremity: Left Weight Bearing/Tolerated Referral Physician: Kemal Reason for Referral: Evaluation/Treatment Medical History Pertinent Medical History: CVA (with encephalomalacia right frontal lobe) Additional Medical History dysphasia/epilepsy/depression [place] History [place] secondary to [place]. Reviewed History: Yes Social History Home: [facility] Prior Prior Level of Function SCALE: Activities may be completed with or without assistive devices. 3-Uerkykfscu-mqjjjno completes the activity by him/herself with no assistance from a helper. 5-Set-up or Clean-up Assistance-helper sets up or cleans up; patient completes activity. [place] assists only prior to or following the activity. 4-Supervision or Touching Assistance-helper provides verbal cues and/or touching/steadying and/or contact guard assistance as patient completes activity. Assistance may be provided throughout the activity or intermittently. 3-Partial/Moderate Assistance-helper does LESS THAN HALF the effort. [place] lifts, holds or supports trunk or limbs, but provides less than half the effort. 2-Substantial/Maximal Assistance-helper does MORE THAN HALF the effort. [place] lifts or holds trunk or limbs and provides more than half the effort. 7-Padjkduix-fsndpp does ALL the effort. Patient does none of the effort to complete the activity. Or, the assistance of 2 or more helpers is required for the patient to complete the activity. If activity was not attempted, code reason: 7-Patient Refused. 9-Not Applicable-not attempted and the patient did not perform the activity before the current illness, exacerbation or injury. 10-Not Attempted due to Environmental Limitations-(lack of equipment, weather restraints, etc.). 88-Not Attempted due to Medical Conditions or Safety Concerns. Bed Mobility: 2 Transfers (B,C,W/C): 2 Gait: 2 Stairs: 9 Wheelchair Mobility: 2 Indoor Mobility (Ambulation): Needed Some Help Stairs: Not Applicalbe Prior Devices Use: Manual wheelchair, Walker per spouse, patient ambulates short distance 10-15'. PT Evaluation-Current Subjective Spouse is present and agrees to PT. Pt/Family Goals return to [place] via private vehicle per spouse Objective Patient Orientation: Non-Verbal/Aphasic Attachments: Landrum Catheter, IV ROM/Strength ROM Lower Extremities left hip precautions/right LE WFL Integumentary/Posture Integumentary refer to nursing notes Bladder Incontinence: Landrum Cath Posture kyphotic Sensory Vision: Unable to Assess Hearing: Impaired Sensation Right Lower Extremit: Intact Sensation Left Lower Extremity: Intact Transfers Roll Left to Right (QC): 1 (repositioned in bed) Gait Does the Patient Walk?: No and Walking Goal IS indicated Treatment bilateral LE PROM due to patient is lethargic. PT will address mobility in a.m. Assessment/Needs 64 y.o. male, will benefit from skilled PT to address functional strength and mobility to improve current LOF. Per spouse, patient will return to NH upon dismissal from hospital. Rehab Potential: Guarded PT Sander Machine Goals Sander Machine Goals PT Sander Machine Goals Time Frame: Jan 10, 2020 Roll Left & Right (QC): 3 Sit to Lying (QC): 3 Lying-Sitting on Side/Bed(QC): 3 Sit to Stand (QC): 3 Chair/Ual-fs-[facility] Xfer(QC): 3 Does the Patient Walk: No and Walking Goal IS indicated Walk 10 feet (QC): 3 PT Plan Problem List Problem List: Activity Tolerance, Functional Strength, Safety, Balance, Gait, Transfer, Bed Mobility Treatment/Plan Treatment Plan: Continue Plan of Care Treatment Plan: Bed Mobility, Education, Functional Activity Marly, Functional Strength, Gait, Safety, Therapeutic Exercise, Transfers Treatment Duration: Jan 10, 2020 Frequency: 11 times per week Estimated Hrs Per Day: .5 hour per day Patient and/or Family Agrees t: Yes Discharge Recommendations Therapy Discharge Recommendati: Other, See Comments (snf facility) Time/GCodes Time In: 1115 Time Out: 1130 Total Billed Treatment Time: 15 Total Billed Treatment 1 visit EVMod 15 min FAHAD NAZARIO PT Jan 03, 2020 10:38
[2020-01-03] MEDS ORDERED: ONDANSETRON 4 MG/2 ML (SDV) Z0FRAN ONE (10:45)
--- NOTE | 2020-01-03 11:33 | Physical Therapy Evaluation ---
PT Evaluation-General Medical Diagnosis Admission Date Jan 02, 2020 at 17:18 Medical Diagnosis: left hip fracture Onset Date: Jan 02, 2020 Precautions Precautions/Isolations: Fall Prevention, Standard Precautions Weight Bear Status Right Lower Extremity: Right Full Weight Bearing Left Lower Extremity: Left Weight Bearing/Tolerated Referral Physician: Kemal Reason for Referral: Evaluation/Treatment Medical History Pertinent Medical History: CVA (with encephalomalacia right frontal lobe) Reviewed History: Yes Social History Home: Detention Prior Prior Level of Function SCALE: Activities may be completed with or without assistive devices. 0-Bgbuxcfxsb-qehhabq completes the activity by him/herself with no assistance from a helper. 5-Set-up or Clean-up Assistance-helper sets up or cleans up; patient completes activity. [place] assists only prior to or following the activity. 4-Supervision or Touching Assistance-helper provides verbal cues and/or touching/steadying and/or contact guard assistance as patient completes ac tivity. Assistance may be provided throughout the activity or intermittently. 3-Partial/Moderate Assistance-helper does LESS THAN HALF the effort. [place] lifts, holds or supports trunk or limbs, but provides less than half the effort. 2-Substantial/Maximal Assistance-helper does MORE THAN HALF the effort. [place] lifts or holds trunk or limbs and provides more than half the effort. 3-Ohzrvfnpc-fexwgy does ALL the effort. Patient does none of the effort to complete the activity. Or, the assistance of 2 or more helpers is required for the patient to complete the activity. If activity was not attempted, code reason: 7-Patient Refused. 9-Not Applicable-not attempted and the patient did not perform the activity before the current illness, exacerbation or injury. 10-Not Attempted due to Environmental Limitations-(lack of equipment, weather restraints, etc.). 88-Not Attempted due to Medical Conditions or Safety Concerns. Indoor Mobility (Ambulation): Needed Some Help Stairs: Not Applicalbe Prior Devices Use: Manual wheelchair, Walker PT Evaluation-Current Integumentary/Posture Bladder Incontinence: Landrum Cath Sensory Vision: Functional Hearing: Impaired PT Fdc Goals Fdc Goals PT Fdc Goals Time Frame: Jan 10, 2020 Roll Left & Right (QC): 3 Sit to Lying (QC): 3 Lying-Sitting on Side/Bed(QC): 3 Sit to Stand (QC): 3 Chair/Sil-gf-Iyoap Xfer(QC): 3 Does the Patient Walk: No and Walking Goal IS indicated Walk 10 feet (QC): 3 PT Plan Treatment/Plan Treatment Plan: Bed Mobility, Education, Functional Activity Marly, Functional Strength, Gait, Safety, Therapeutic Exercise, Transfers Treatment Duration: Jan 10, 2020 Frequency: 11 times per week Estimated Hrs Per Day: .5 hour per day Patient and/or Family Agrees t: Yes FAHAD NAZARIO PT Jan 03, 2020 11:33
--- NOTE | 2020-01-03 13:37 | NUR ---
RT tried to educate pt on the IS earlier and he was unable. after reviewing pt chart RT noticed that pt has had a stroke and might be unable to preform IS.
[2020-01-03] MEDS: LACTATED RINGERS 1,000 ML IV SCH ×2 (14:02→21:15)
[2020-01-03] MEDS: HYDROcodone/APAP 7.5 MG/325 MG (LORTAB, LORCET PLUS) TABLET PO PRN ×3 (14:02→18:43)
[2020-01-03] MEDS: polyethylene glycoL POWDER 17 GM (MIRALAX) PACK PO SCH ×2 (14:02→20:46)
[2020-01-03] MEDS: SENNOSIDES 8.6 MG (SENOKOT) TAB PO SCH ×2 (14:07→20:47)
[2020-01-03] MEDS: CEFUROXIME INJECTION 750 MG in WATER (STERILE) FOR INJECTION 10 ML IV SCH ×2 (15:46→23:11)
[2020-01-03] MEDS: morphine INJ 4 MG/ML 1 ML (VIAL/SYRINGE) IVP PRN (20:54)
[2020-01-03] MEDS: fentaNYL INJECTION 100 MCG/2 ML AMP IV PRN (23:30)
[2020-01-04 04:00] VITALS: BP 100/62
[2020-01-04 05:47] LABS: BASOPHILS % (AUTO) 0 % (0-10); EOSINOPHILS % (AUTO) 0 % (0-10); HEMATOCRIT 23 % (40-54); HEMOGLOBIN 7.6 G/DL (13.3-17.7); LYMPHOCYTES # (AUTO) 2.8 X 10^3 (1.0-4.0); LYMPHOCYTES % (AUTO) 17 % (12-44); MEAN CORPUSCULAR HEMOGLOBIN 30 PG (25-34); MEAN CORPUSCULAR HGB CONC 33 G/DL (32-36); MEAN CORPUSCULAR VOLUME 93 FL (80-99); MEAN PLATELET VOLUME 10.9 FL (7.4-10.4); MONOCYTES # (AUTO) 3.5 X 10^3 (0.0-1.0); MONOCYTES % (AUTO) 21 % (0-12); NEUTROPHILS # (AUTO) 10.5 X 10^3 (1.8-7.8); NEUTROPHILS % (AUTO) 62 % (42-75); PLATELET COUNT 156 10^3/uL (130-400); RED CELL DISTRIBUTION WIDTH 13.7 % (10.0-14.5); WHITE BLOOD COUNT 16.9 10^3/uL (4.3-11.0)
[2020-01-04 05:55] LABS: ALBUMIN 2.5 GM/DL (3.2-4.5); CHLORIDE 108 MMOL/L (98-107); POTASSIUM 4.3 MMOL/L (3.6-5.0); SODIUM 136 MMOL/L (135-145)
[2020-01-04 05:56] LABS: CALCIUM 7.9 MG/DL (8.5-10.1)
[2020-01-04 05:57] LABS: GLUCOSE 124 MG/DL (70-105); TOTAL PROTEIN 4.9 GM/DL (6.4-8.2)
[2020-01-04 05:58] LABS: CARBON DIOXIDE 20 MMOL/L (21-32)
[2020-01-04] MEDS: MULTIVIT W/MINERALS TAB (THERAGRAN M) PO SCH (05:58)
[2020-01-04 05:59] LABS: BILIRUBIN,TOTAL 0.5 MG/DL (0.1-1.0)
[2020-01-04 06:01] LABS: ALKALINE PHOSPHATASE 56 U/L (40-136); CREATININE SERUM 0.95 MG/DL (0.60-1.30); GFR ESTIMATED > 60
[2020-01-04 06:02] LABS: BUN/CREATININE RATIO 18
--- NOTE | 2020-01-04 06:12 | Progress Note - Hospitalist ---
Subjective HPI/CC On Admission Date Seen by Provider: Jan 04, 2020 Time Seen by Provider: 09:00 CC: Left hip fracture HPI: This is a 64yoWM [place] patient of Dr José in [facility] where he has lived since CVA who presented to [facility] after [place] xray obtained revealing left hip fracture s/p fall. Patient is currently post op and drowsy and additionally he is a poor historian so his is at bedside who answers some questions. Landrum is in place. Repair went uncomplicated. No pain reported currently. already asking if she can bring him back to the NH in her car and I told her we would take one day at a time and see where we were at time of DC. Subjective/Events-last exam Patient up in chair at bedside Pain tolerated Difficult to communicate with the patient due to CVA residual Checked meds No BM yet Landrum cath in place Hgb 7.6 checking iron level and gave iron infusion first dose today Review of Systems General: Fatigue Musculoskeletal: leg pain Neurological: Change in speech, Confusion Objective Exam Vital Signs Vital Signs Date Time Temp Pulse Resp B/P (MAP) Pulse Ox O2 Delivery O2 Flow Rate FiO2 01/04/20 12:00 37.4 118 18 109/55 (73) 96 Nasal Cannula 3.00 Capillary Refill : Less Than 3 SecondsLess Than 3 Seconds General Appearance: No Apparent Distress, WD/WN, Chronically ill Respiratory: Chest Non Tender, Lungs Clear, Normal Breath Sounds, No Accessory Muscle Use, No Respiratory Distress Cardiovascular: Regular Rate, Rhythm, No Edema, No Gallop, No JVD, No Murmur, Normal Peripheral Pulses Neurologic/Psychiatric: Alert, Depressed Affect, Disoriented Results/Procedures Lab Laboratory Tests 01/04/20 05:35 Patient resulted labs reviewed. Assessment/Plan Assessment and Plan Assess & Plan/Chief Complaint Assessment: Left hip fracture s/p uncomplicated repair Dr Sommer POD # 1 h/o CVA HTN Seizures? Post op anemia due to acute blood loss started iron infusions Plan: Landrum Pain meds IVF Monitor closely BM regimen Home meds? Iron infusions Diagnosis/Problems Diagnosis/Problems (1) Hip fracture, left (2) History of CVA (cerebrovascular accident) (3) Hypertension (4) Seizure (5) Leukocytosis Clinical Quality Measures DVT/VTE Risk/Contraindication: Risk Factor Score Per Nursin RFS Level Per Nursing on Admit: 4+=Very High Contraindications-Pharm: Other *list below* Other: surgery 01/03/20 0800 BERENICE NGO DO Jan 04, 2020 06:12
[2020-01-04 06:18] LABS: ALANINE AMINOTRANSFERASE 11 U/L (0-55)
--- NOTE | 2020-01-04 07:59 | Progress Note ---
Standard Progress Note Progress Notes/Assess & Plan Date Seen by a Provider: Jan 04, 2020 Time Seen by a Provider: 07:56 Progress/Assessment & Plan no complaints Vital Signs Date Time Temp Pulse Resp B/P (MAP) Pulse Ox O2 Delivery O2 Flow Rate FiO2 01/04/20 04:00 37.6 103 18 100/62 (75) 95 Nasal Cannula 3.00 01/04/20 00:00 37.8 01/03/20 23:52 38.7 122 18 92/52 (65) 95 Nasal Cannula 3.00 01/03/20 23:30 38.7 01/03/20 19:56 37.9 122 18 100/57 (71) 95 Nasal Cannula 3.00 01/03/20 19:10 Nasal Cannula 3.00 01/03/20 15:50 37.1 109 18 101/60 (74) 92 Nasal Cannula 3.00 01/03/20 12:57 36.5 100 19 109/60 (76) 93 Nasal Cannula 3.00 01/03/20 11:58 93 Nasal Cannula 3.00 01/03/20 10:55 36.5 109 19 101/56 (71) 96 Nasal Cannula 3.00 01/03/20 10:30 Nasal Cannula 3 01/03/20 10:20 36.5 12 105/73 (84) 92 Nasal Cannula 3 01/03/20 10:15 Nasal Cannula 3 01/03/20 10:10 16 99/69 (79) 96 Nasal Cannula 3 01/03/20 10:00 14 101/76 (84) 97 OxyMask 10 01/03/20 10:00 OxyMask 10 01/03/20 09:50 14 100/73 (82) 98 OxyMask 10 01/03/20 09:45 OxyMask 10 01/03/20 09:40 15 106/63 (77) 96 OxyMask 10 01/03/20 09:30 36.8 16 126/83 (97) 99 OxyMask 10 01/03/20 09:30 OxyMask 10 I & O 01/04/20 07:00 Intake Total 5120 ml Output Total 755 ml Balance 4365 ml Laboratory Tests Test 01/04/20 05:35 Range/Units White Blood Count 16.9 H 4.3-11.0 10^3/uL Red Blood Count 2.52 L 4.35-5.85 10^6/uL Hemoglobin 7.6 #L 13.3-17.7 G/DL Hematocrit 23 L 40-54 % Mean Corpuscular Volume 93 80-99 FL Mean Corpuscular Hemoglobin 30 25-34 PG Mean Corpuscular Hemoglobin Concent 33 32-36 G/DL Red Cell Distribution Width 13.7 10.0-14.5 % Platelet Count 156 130-400 10^3/uL Mean Platelet Volume 10.9 H 7.4-10.4 FL Neutrophils (%) (Auto) 62 42-75 % Lymphocytes (%) (Auto) 17 12-44 % Monocytes (%) (Auto) 21 H 0-12 % Eosinophils (%) (Auto) 0 0-10 % Basophils (%) (Auto) 0 0-10 % Neutrophils # (Auto) 10.5 H 1.8-7.8 X 10^3 Lymphocytes # (Auto) 2.8 1.0-4.0 X 10^3 Monocytes # (Auto) 3.5 H 0.0-1.0 X 10^3 Eosinophils # (Auto) 0.0 0.0-0.3 10^3/uL Basophils # (Auto) 0.0 0.0-0.1 10^3/uL Sodium Level 136 135-145 MMOL/L Potassium Level 4.3 3.6-5.0 MMOL/L Chloride Level 108 H 98-107 MMOL/L Carbon Dioxide Level 20 L 21-32 MMOL/L Anion Gap 8 5-14 MMOL/L Blood Urea Nitrogen 17 7-18 MG/DL Creatinine 0.95 0.60-1.30 MG/DL Estimat Glomerular Filtration Rate > 60 BUN/Creatinine Ratio 18 Glucose Level 124 H 70-105 MG/DL Calcium Level 7.9 L 8.5-10.1 MG/DL Corrected Calcium 9.1 8.5-10.1 MG/DL Total Bilirubin 0.5 0.1-1.0 MG/DL Aspartate Amino Transf (AST/SGOT) 31 5-34 U/L Alanine Aminotransferase (ALT/SGPT) 11 0-55 U/L Alkaline Phosphatase 56 40-136 U/L Total Protein 4.9 L 6.4-8.2 GM/DL Albumin 2.5 L 3.2-4.5 GM/DL L hip dressing in place Intact DF and PF of toes and ankle symmetric pulses radiographs reveal well placed HW without fracture s/p L hip bipolar PT as tolerated to NH in next 1-2 days if medically stable WILLY EVANS MD Jan 04, 2020 07:59
[2020-01-04 08:00] VITALS: BP 99/50
[2020-01-04] MEDS: ENOXAPARIN 40 MG/0.4 ML (LOVENOX) SYR SC SCH (08:26)
[2020-01-04] MEDS: HYDROcodone/APAP 7.5 MG/325 MG (LORTAB, LORCET PLUS) TABLET PO PRN ×3 (08:26→20:08)
[2020-01-04] MEDS: SENNOSIDES 8.6 MG (SENOKOT) TAB PO SCH ×2 (08:26→20:10)
[2020-01-04] MEDS: polyethylene glycoL POWDER 17 GM (MIRALAX) PACK PO SCH ×2 (08:27→20:10)
[2020-01-04] MEDS: morphine INJ 4 MG/ML 1 ML (VIAL/SYRINGE) IVP PRN (08:27)
[2020-01-04] MEDS: LACTATED RINGERS 1,000 ML IV SCH ×2 (08:40→20:08)
[2020-01-04] MEDS ORDERED: ENOXAPARIN 40 MG/0.4 ML (LOVENOX) SYR SC SCH (09:00)
--- NOTE | 2020-01-04 09:02 | Physical Therapy Daily Note ---
PT Daily Note-Current Subjective Patient is able to answer questions appropriately. Spouse present. Pain Numeric Pain Scale: 10-Worst Possible Pain Location: Left Location Body Site: Hip Pain Description: Acute Comment: FLACC Mental Status Patient Orientation: Non-Verbal/Aphasic Attachments: Oxygen, Landrum Catheter, IV Transfers SCALE: Activities may be completed with or without assistive devices. 7-Tjtewwbdrn-vzxftlq completes the activity by him/herself with no assistance from a helper. 5-Set-up or Clean-up Assistance-helper sets up or cleans up; patient completes activity. [place] assists only prior to or following the activity. 4-Supervision or Touching Assistance-helper provides verbal cues and/or touching/steadying and/or contact guard assistance as patient completes activity. Assistance may be provided throughout the activity or intermittently. 3-Partial/Moderate Assistance-helper does LESS THAN HALF the effort. [place] lifts, holds or supports trunk or limbs, but provides less than half the effort. 2-Substantial/Maximal Assistance-helper does MORE THAN HALF the effort. [place] lifts or holds trunk or limbs and provides more than half the effort. 6-Rcdxlfglq-dioxde does ALL the effort. Patient does none of the effort to complete the activity. Or, the assistance of 2 or more helpers is required for the patient to complete the activity. If activity was not attempted, code reason: 7-Patient Refused. 9-Not Applicable-not attempted and the patient did not perform the activity be fore the current illness, exacerbation or injury. 10-Not Attempted due to Environmental Limitations-(lack of equipment, weather restraints, etc.). 88-Not Attempted due to Medical Conditions or Safety Concerns. Roll Left & Right (QC): 1 Lying to Sitting/Side of Bed(Q: 1 Sit to Stand (QC): 1 Chair/Qkd-as-Djcvb Xfer(QC): 1 Patient performed sit to stand and side stepping x 4 steps with FWW use and RN advancing right LE due to patient inability to weight shift left due to pain. Weight Bearing Right Lower Extremity: Right Full Weight Bearing Left Lower Extremity: Left Weight Bearing/Tolerated Gait Training Does the Patient Walk?: No and Walking Goal IS indicated Distance: 3 side steps to right Gait Assistive Device: FWW Dependent assist with RN advancing right LE while PT performed weight shifting to left Exercises Supine Ex: Heel Slides, Straight leg raise Supine Reps: 12 (AAROM bilaterally) Seated Therapy Exercises: Long arc quads Seated Reps: 12 (AAROM bilaterally) Assessment Patient is very resistive with all mobility due to left hip pain and old CVA. Patient is up in recliner with spouse present. Patient tolerated treatment well. PT Communications Analyst Goals Communications Analyst Goals PT [facility]pc Goals Time Frame: Jan 10, 2020 Roll Left & Right (QC): 3 Sit to Lying (QC): 3 Lying-Sitting on Side/Bed(QC): 3 Sit to Stand (QC): 3 Chair/Kaz-gd-Jmkad Xfer(QC): 3 Does the Patient Walk: No and Walking Goal IS indicated Walk 10 feet (QC): 3 PT Plan Treatment/Plan Treatment Plan: Continue Plan of Care Treatment Plan: Bed Mobility, Education, Functional Activity Marly, Functional Strength, Gait, Safety, Therapeutic Exercise, Transfers Treatment Duration: Jan 10, 2020 Frequency: 11 times per week Estimated Hrs Per Day: .5 hour per day Patient and/or Family Agrees t: Yes Time/GCodes Time In: 836 Time Out: 900 Total Billed Treatment Time: 24 Total Billed Treatment 1 visit FA x 2 24 min FAHAD NAZARIO PT Jan 04, 2020 09:02
[2020-01-04] MEDS: IRON SUCROSE 200 MG/10 ML (VENOFER) VIAL IV SCH (11:15)
[2020-01-04 12:00] VITALS: BP 109/55
[2020-01-04 15:31] VITALS: BP 102/64
[2020-01-04 19:22] VITALS: BP 101/62
[2020-01-05] VITALS (12 sets, daily range): BP systolic 94–139; BP diastolic 57–79
[2020-01-05] MEDS: morphine INJ 4 MG/ML 1 ML (VIAL/SYRINGE) IVP PRN (04:44)
[2020-01-05] MEDS: MULTIVIT W/MINERALS TAB (THERAGRAN M) PO SCH (05:48)
[2020-01-05] MEDS: LACTATED RINGERS 1,000 ML IV SCH (05:51)
[2020-01-05 06:20] LABS: ALANINE AMINOTRANSFERASE 17 U/L (0-55); ALBUMIN 2.4 GM/DL (3.2-4.5); ALKALINE PHOSPHATASE 79 U/L (40-136); BILIRUBIN,TOTAL 0.6 MG/DL (0.1-1.0); BUN/CREATININE RATIO 16; CALCIUM 8.1 MG/DL (8.5-10.1); CARBON DIOXIDE 20 MMOL/L (21-32); CHLORIDE 105 MMOL/L (98-107); CREATININE SERUM 0.83 MG/DL (0.60-1.30); GFR ESTIMATED > 60; GLUCOSE 100 MG/DL (70-105); POTASSIUM 3.8 MMOL/L (3.6-5.0); SODIUM 134 MMOL/L (135-145); TOTAL PROTEIN 4.9 GM/DL (6.4-8.2)
--- NOTE | 2020-01-05 06:37 | Progress Note - Hospitalist ---
Subjective HPI/CC On Admission Date Seen by Provider: Jan 05, 2020 Time Seen by Provider: 10:00 CC: Left hip fracture HPI: This is a 64yoWM [place] patient of Dr José in [facility] where he has lived since CVA who presented to [facility] after [place] xray obtained revealing left hip fracture s/p fall. Patient is currently post op and drowsy and additionally he is a poor historian so his is at bedside who answers some questions. Landrum is in place. Repair went uncomplicated. No pain reported currently. already asking if she can bring him back to the [place] in her car and I told her we would take one day at a time and see where we were at time of DC. Subjective/Events-last exam Hgb 6.5 today so will give two units of blood No BM yet will give multiple meds today Diallo remains in dwelling Probable senior care DC tomorrow or Sunday at the bedside Pt appears to have good pain control Has been in the senior care for 4 years since his stroke Review of Systems General: Fatigue Musculoskeletal: leg pain Neurological: Confusion Objective Exam Vital Signs Vital Signs Date Time Temp Pulse Resp B/P (MAP) Pulse Ox O2 Delivery O2 Flow Rate FiO2 01/06/20 04:00 36.6 89 16 99/62 (74) 98 Nasal Cannula 3.00 Capillary Refill : Less Than 3 SecondsLess Than 3 Seconds General Appearance: No Apparent Distress, WD/WN, Chronically ill Respiratory: Chest Non Tender, Lungs Clear, Normal Breath Sounds, No Accessory Muscle Use, No Respiratory Distress Cardiovascular: Regular Rate, Rhythm, No Edema, No Gallop, No JVD, No Murmur, Normal Peripheral Pulses Neurologic/Psychiatric: Alert, Oriented x3, No Motor/Sensory Deficits, Normal Mood/Affect Results/Procedures Lab Laboratory Tests 01/06/20 05:28 Patient resulted labs reviewed. Assessment/Plan Assessment and Plan Assess & Plan/Chief Complaint Assessment: Left hip fracture s/p uncomplicated repair Dr Sommer POD # 2 h/o CVA HTN Seizures? Post op anemia due to acute blood loss started iron infusions Plan: Landrum Pain meds IVF Monitor closely BM regimen Home meds? Iron infusions Diagnosis/Problems Diagnosis/Problems (1) Hip fracture, left (2) History of CVA (cerebrovascular accident) (3) Hypertension (4) Seizure (5) Leukocytosis Clinical Quality Measures DVT/VTE Risk/Contraindication: Risk Factor Score Per Nursin RFS Level Per Nursing on Admit: 4+=Very High Contraindications-Pharm: Other *list below* Other: surgery 01/03/20 0800 BERENICE NGO DO Jan 05, 2020 06:37
[2020-01-05 08:10] LABS: BASOPHILS % (AUTO) 0 % (0-10); EOSINOPHILS % (AUTO) 0 % (0-10); LYMPHOCYTES # (AUTO) 2.2 X 10^3 (1.0-4.0); LYMPHOCYTES % (AUTO) 18 % (12-44); MEAN CORPUSCULAR HEMOGLOBIN 30 PG (25-34); MEAN CORPUSCULAR HGB CONC 32 G/DL (32-36); MEAN CORPUSCULAR VOLUME 92 FL (80-99); MEAN PLATELET VOLUME 11.7 FL (7.4-10.4); MONOCYTES # (AUTO) 2.5 X 10^3 (0.0-1.0); MONOCYTES % (AUTO) 19 % (0-12); NEUTROPHILS % (AUTO) 63 % (42-75); PLATELET COUNT 174 10^3/uL (130-400); RED CELL DISTRIBUTION WIDTH 13.7 % (10.0-14.5); WHITE BLOOD COUNT 12.7 10^3/uL (4.3-11.0)
--- NOTE | 2020-01-05 08:10 | Progress Note ---
Standard Progress Note Progress Notes/Assess & Plan Date Seen by a Provider: Jan 05, 2020 Time Seen by a Provider: 08:09 Progress/Assessment & Plan no complaints Vital Signs Date Time Temp Pulse Resp B/P (MAP) Pulse Ox O2 Delivery O2 Flow Rate FiO2 01/04/20 04:00 37.6 103 18 100/62 (75) 95 Nasal Cannula 3.00 01/04/20 00:00 37.8 01/03/20 23:52 38.7 122 18 92/52 (65) 95 Nasal Cannula 3.00 01/03/20 23:30 38.7 01/03/20 19:56 37.9 122 18 100/57 (71) 95 Nasal Cannula 3.00 01/03/20 19:10 Nasal Cannula 3.00 01/03/20 15:50 37.1 109 18 101/60 (74) 92 Nasal Cannula 3.00 01/03/20 12:57 36.5 100 19 109/60 (76) 93 Nasal Cannula 3.00 01/03/20 11:58 93 Nasal Cannula 3.00 01/03/20 10:55 36.5 109 19 101/56 (71) 96 Nasal Cannula 3.00 01/03/20 10:30 Nasal Cannula 3 01/03/20 10:20 36.5 12 105/73 (84) 92 Nasal Cannula 3 01/03/20 10:15 Nasal Cannula 3 01/03/20 10:10 16 99/69 (79) 96 Nasal Cannula 3 01/03/20 10:00 14 101/76 (84) 97 OxyMask 10 01/03/20 10:00 OxyMask 10 01/03/20 09:50 14 100/73 (82) 98 OxyMask 10 01/03/20 09:45 OxyMask 10 01/03/20 09:40 15 106/63 (77) 96 OxyMask 10 01/03/20 09:30 36.8 16 126/83 (97) 99 OxyMask 10 01/03/20 09:30 OxyMask 10 I & O 01/04/20 07:00 Intake Total 5120 ml Output Total 755 ml Balance 4365 ml Laboratory Tests Test 01/04/20 05:35 Range/Units White Blood Count 16.9 H 4.3-11.0 10^3/uL Red Blood Count 2.52 L 4.35-5.85 10^6/uL Hemoglobin 7.6 #L 13.3-17.7 G/DL Hematocrit 23 L 40-54 % Mean Corpuscular Volume 93 80-99 FL Mean Corpuscular Hemoglobin 30 25-34 PG Mean Corpuscular Hemoglobin Concent 33 32-36 G/DL Red Cell Distribution Width 13.7 10.0-14.5 % Platelet Count 156 130-400 10^3/uL Mean Platelet Volume 10.9 H 7.4-10.4 FL Neutrophils (%) (Auto) 62 42-75 % Lymphocytes (%) (Auto) 17 12-44 % Monocytes (%) (Auto) 21 H 0-12 % Eosinophils (%) (Auto) 0 0-10 % Basophils (%) (Auto) 0 0-10 % Neutrophils # (Auto) 10.5 H 1.8-7.8 X 10^3 Lymphocytes # (Auto) 2.8 1.0-4.0 X 10^3 Monocytes # (Auto) 3.5 H 0.0-1.0 X 10^3 Eosinophils # (Auto) 0.0 0.0-0.3 10^3/uL Basophils # (Auto) 0.0 0.0-0.1 10^3/uL Sodium Level 136 135-145 MMOL/L Potassium Level 4.3 3.6-5.0 MMOL/L Chloride Level 108 H 98-107 MMOL/L Carbon Dioxide Level 20 L 21-32 MMOL/L Anion Gap 8 5-14 MMOL/L Blood Urea Nitrogen 17 7-18 MG/DL Creatinine 0.95 0.60-1.30 MG/DL Estimat Glomerular Filtration Rate > 60 BUN/Creatinine Ratio 18 Glucose Level 124 H 70-105 MG/DL Calcium Level 7.9 L 8.5-10.1 MG/DL Corrected Calcium 9.1 8.5-10.1 MG/DL Total Bilirubin 0.5 0.1-1.0 MG/DL Aspartate Amino Transf (AST/SGOT) 31 5-34 U/L Alanine Aminotransferase (ALT/SGPT) 11 0-55 U/L Alkaline Phosphatase 56 40-136 U/L Total Protein 4.9 L 6.4-8.2 GM/DL Albumin 2.5 L 3.2-4.5 GM/DL L hip dressing in place Intact DF and PF of toes and ankle symmetric pulses radiographs reveal well placed HW without fracture s/p L hip bipolar PT as tolerated to NH in next 1-2 days if medically stable Final Diagnosis no complaints Vital Signs Date Time Temp Pulse Resp B/P (MAP) Pulse Ox O2 Delivery O2 Flow Rate FiO2 01/05/20 04:00 37.3 114 18 97/60 (72) 95 Nasal Cannula 3.00 01/05/20 00:00 37.4 107 18 97/79 (85) 93 Nasal Cannula 3.00 01/04/20 19:45 Nasal Cannula 3.00 01/04/20 19:22 37.8 105 18 101/62 (75) 95 Nasal Cannula 3.00 01/04/20 15:31 38.0 111 16 102/64 (77) 94 Room Air 01/04/20 12:00 37.4 118 18 109/55 (73) 96 Nasal Cannula 3.00 I & O 01/05/20 07:00 Intake Total 8210 ml Output Total 2300 ml Balance 5910 ml Laboratory Tests Test 01/05/20 05:05 Range/Units Sodium Level 134 L 135-145 MMOL/L Potassium Level 3.8 3.6-5.0 MMOL/L Chloride Level 105 98-107 MMOL/L Carbon Dioxide Level 20 L 21-32 MMOL/L Anion Gap 9 5-14 MMOL/L Blood Urea Nitrogen 13 7-18 MG/DL Creatinine 0.83 0.60-1.30 MG/DL Estimat Glomerular Filtration Rate > 60 BUN/Creatinine Ratio 16 Glucose Level 100 70-105 MG/DL Calcium Level 8.1 L 8.5-10.1 MG/DL Corrected Calcium 9.4 8.5-10.1 MG/DL Total Bilirubin 0.6 0.1-1.0 MG/DL Aspartate Amino Transf (AST/SGOT) 40 H 5-34 U/L Alanine Aminotransferase (ALT/SGPT) 17 0-55 U/L Alkaline Phosphatase 79 40-136 U/L Total Protein 4.9 L 6.4-8.2 GM/DL Albumin 2.4 L 3.2-4.5 GM/DL Lhip incision clean and dry no calf tenderness s/p L hip bipolar to NH when medically OK WILLY EVANS MD Jan 05, 2020 08:10
[2020-01-05 08:12] LABS: HEMOGLOBIN 6.5 G/DL (13.3-17.7)
[2020-01-05 08:13] LABS: HEMATOCRIT 20 % (40-54)
[2020-01-05] MEDS ORDERED: NS IV 500 ML 500 ML IV ONE (08:30)
[2020-01-05] MEDS: polyethylene glycoL POWDER 17 GM (MIRALAX) PACK PO SCH ×2 (08:32→20:33)
[2020-01-05] MEDS: SENNOSIDES 8.6 MG (SENOKOT) TAB PO SCH ×2 (08:36→20:33)
[2020-01-05] MEDS: HYDROcodone/APAP 7.5 MG/325 MG (LORTAB, LORCET PLUS) TABLET PO PRN ×3 (08:37→22:43)
[2020-01-05] MEDS: ENOXAPARIN 40 MG/0.4 ML (LOVENOX) SYR SC SCH (08:37)
[2020-01-05] MEDS ORDERED: POLY17PO6 PO (09:00)
[2020-01-05] MEDS ORDERED: VALP250S3 PO (09:00)
[2020-01-05] MEDS ORDERED: ONDA4TAB11 PO (09:00)
[2020-01-05] MEDS ORDERED: ASPI-983 PO (09:00)
--- NOTE | 2020-01-05 09:05 | NUR ---
ENTERED THE MED REC USING THE ORDER SUMMARY REPORT FROM [employer]
--- NOTE | 2020-01-05 11:40 | Physical Therapy Daily Note ---
PT Daily Note-Current Subjective Patient and spouse agree to PT. Pain Numeric Pain Scale: 10-Worst Possible Pain Location: Left Location Body Site: Hip Pain Description: Acute Comment: FLACC Mental Status Patient Orientation: Non-Verbal/Aphasic Attachments: Landrum Catheter, IV Transfers SCALE: Activities may be completed with or without assistive devices. 4-Ckumqwykzt-tjcfnqm completes the activity by him/herself with no assistance from a helper. 5-Set-up or Clean-up Assistance-helper sets up or cleans up; patient completes activity. [place] assists only prior to or following the activity. 4-Supervision or Touching Assistance-helper provides verbal cues and/or touching/steadying and/or contact guard assistance as patient completes activity . Assistance may be provided throughout the activity or intermittently. 3-Partial/Moderate Assistance-helper does LESS THAN HALF the effort. [place] lifts, holds or supports trunk or limbs, but provides less than half the effort. 2-Substantial/Maximal Assistance-helper does MORE THAN HALF the effort. [place] lifts or holds trunk or limbs and provides more than half the effort. 3-Zspinkoks-elnlzj does ALL the effort. Patient does none of the effort to complete the activity. Or, the assistance of 2 or more helpers is required for the patient to complete the activity. If activity was not attempted, code reason: 7-Patient Refused. 9-Not Applicable-not attempted and the patient did not perform the activity before the current illness, exacerbation or injury. 10-Not Attempted due to Environmental Limitations-(lack of equipment, weather restraints, etc.). 88-Not Attempted due to Medical Conditions or Safety Concerns. Roll Left & Right (QC): 1 Lying to Sitting/Side of Bed(Q: 1 Sit to Stand (QC): 1 Chair/Ryg-zf-Oskix Xfer(QC): 1 Patient did not assist with transfers on this date and no able to sit EOB without assistance Weight Bearing Right Lower Extremity: Right Full Weight Bearing Left Lower Extremity: Left Weight Bearing/Tolerated Exercises Seated Therapy Exercises: Ankle pumps, Long arc quads Seated Reps: 15 (PROM) Assessment Patient is up in recliner receiving PRBC. PT Professional System Administrator Goals [facility] Goals PT Professional System Administrator Goals Time Frame: Jan 10, 2020 Roll Left & Right (QC): 3 Sit to Lying (QC): 3 Lying-Sitting on Side/Bed(QC): 3 Sit to Stand (QC): 3 Chair/Vbc-ms-Fkczh Xfer(QC): 3 Does the Patient Walk: No and Walking Goal IS indicated Walk 10 feet (QC): 3 PT Plan Treatment/Plan Treatment Plan: Continue Plan of Care Treatment Plan: Bed Mobility, Education, Functional Activity Marly, Functional Strength, Gait, Safety, Therapeutic Exercise, Transfers Treatment Duration: Jan 10, 2020 Frequency: 11 times per week Estimated Hrs Per Day: .5 hour per day Patient and/or Family Agrees t: Yes Time/GCodes Time In: 1115 Time Out: 1130 Total Billed Treatment Time: 15 Total Billed Treatment 1 visit FA 15 min FAHAD NAZARIO PT Jan 05, 2020 11:40
--- NOTE | 2020-01-05 11:41 | Occ Therapy Progress Note ---
Therapy Progress Note OT order received, chart reviewed. OT went into pt's room. Spouse present. States that pt. had pain medication recently. Agreeable to pt. waking up. OT attempted to awake pt, but pt. sound asleep. Spouse reports pt. to receive blood later. Hemoglobin currently at 6.5. Will check back after blood received as time allows. 1, visit x 10minutes [id number] JAY GUTIERREZ OT Jan 05, 2020 11:41
--- NOTE | 2020-01-05 14:14 | Occupational Therapy Eval ---
OT Evaluation-General/PLF Medical Diagnosis Admission Date Jan 02, 2020 at 17:18 Medical Diagnosis: left hip fracture/replacement Onset Date: Jan 02, 2020 Therapy Diagnosis Therapy Diagnosis: Decreased ADL skills Precautions Precautions/Isolations: Fall Prevention, Standard Precautions Weight Bear Status Weight Bearing Restriction: Weight Bearing/Tolerated Referral Physician: Kemal Linares Reason: Activity Tolerance, Self Care, Evaluation/Treatment, Strengthening/ROM Medical History Pertinent Medical History: CVA (with encephalomalacia right frontal lobe) Additional Medical History Seizure disorder, TIA Current History Pt. is NH resident. Spouse is supportive. Pt. fx left hip. Bipolar hip replacement completed. Reviewed History: Yes Social History Home: Skilled Nursing Current Living Status: 24 hour ADL-Prior Level of Function SCALE: Activities may be completed with or without assistive devices. 0-Hrvlsjebca-cprkkhf completes the activity by him/herself with no assistance from a helper. 5-Set-up or Clean-up Assistance-helper sets up or cleans up; patient completes activity. [place] assists only prior to or following the activity. 4-Supervision or Touching Assistance-helper provides verbal cues and/or rasheed nabil/steadying and/or contact guard assistance as patient completes activity. Assistance may be provided throughout the activity or intermittently. 3-Partial/Moderate Assistance-helper does LESS THAN HALF the effort. [place] lifts, holds or supports trunk or limbs, but provides less than half the effort. 2-Substantial/Maximal Assistance-helper does MORE THAN HALF the effort. [place] lifts or holds trunk or limbs and provides more than half the effort. 3-Fhyiaajfg-ygnqoi does ALL the effort. Patient does none of the effort to complete the activity. Or, the assistance of 2 or more helpers is required for the patient to complete the activity. If activity was not attempted, code reason: 7-Patient Refused. 9-Not Applicable-not attempted and the patient did not perform the activity before the current illness, exacerbation or injury. 10-Not Attempted due to Environmental Limitations-(lack of equipment, weather restraints, etc.). 88-Not Attempted due to Medical Conditions or Safety Concerns. ADL PLOF Comments Spouse reports that she has to feed pt. now, but that the NH reports he can feed himself. She states that she does not believe this. Reports that she has not been able to visit him for several months due to COVID regulations. Pt. is fully dependent with ADLs such as bathing and dressing. Spouse states that pt. was standing with walker, but is put into wheelchair. Self Care: Dependent Functional Cognition: Unknown OT Current Status Subjective Pt. grimaces with pain with movement. Unable to report where he hurts or pain level. Appearance Pt. up in chair. Spouse reports that pt. is ready to go back to bed. Mental Status/Objective Patient Orientation: Unable to Assess Pt. is not verbal. Follows some cues such as attempting to stand with walker, but does not answer OT when questions are asked. Attachments: Oxygen ADL-Treatment Eating (QC): 1 (Per spouse. She feeds him.) On/Off Footwear (QC): 1 Pt. getting blood when OT entered room. Stood at chair with max x 2, and max cues for foot placement to pivot to bed. Pt. engaged LE in stance, but did not take steps. Max x 2 for sit-supine, and dependent x 2 for bed mobility. Pt. positioned on side with proper positioning for hip replacement and heels. All needs met. Education OT Patient Education: Correct positioning, Modified ADL techniques, Progress toward Goal/Update tx plan, Purpose of tx/functional activities, Reviewed precautions, Rehab process, Transfer techniques Teaching Recipient: Patient, Family Teaching Methods: Demonstration, Discussion Response to Teaching: Unable to Comprehend, Reinforcement Needed OT Short Term Goals Short Term Goals Time Frame: Jan 12, 2020 Eatin Oral hygiene: 2 OT Wooden Boat Builder Goals Prison Goals Time Frame: Jan 19, 2020 Eating (QC): 4 Oral Hygiene (QC): 3 Upper Body Dressing (QC): 3 Additional Goals: 1-Demonstrate ADL Tasks, 2-Verbalize Understanding, 3- ImproveStrength/Marly 1=Demonstrate adherence to instructed precautions during ADL tasks. 2=Patient will verbalize/demonstrate understanding of assistive devices/modifications for ADL. 3=Patient will improve strength/tolerance for activity to enable patient to perform ADL's. OT Education/Plan Problem List/Assessment Assessment: Decreased Activ Tolerance, Decreased Safety Aware, Decreased UE Strength, Dependent Transfers, Impaired Bed Mobility, Impaired Cognition, Impaired Coordination, Impaired Funct Balance, Impaired I ADL's, Impaired Self- Care Skills, Restricted Funct UE ROM Discharge Recommendations Plan/Recommendations: Continue POC Therapy Discharge Recommendati: 24 Hour Supervision Treatment Plan/Plan of Care Treatment,Training & Education: Yes Patient would benefit from OT for education, treatment and training to promote independence in ADL's, mobility, safety and/or upper extremity function for ADL's. Plan of Care: ADL Retraining, Caregiver Training, Functional Mobility, UE Funct Exercise/Act Treatment Duration: Jan 19, 2020 Frequency: 5 times per week Estimated Hrs Per Day: .25 hour per day Agreement: Yes Rehab Potential: Guarded Time/GCodes Start Time: 13:10 Stop Time: 13:30 Total Time Billed (hr/min): 20 Billed Treatment Time 1, JAY ARENAS OT Jan 05, 2020 14:14
--- NOTE | 2020-01-05 14:29 | NUR ---
RD ASSESSMENT PMHx: CVA; hypercholesterolemia; stroke; TIA; chronic constipation; s/p repair for R hip fracture PT INTERACTION: ABNORMAL NUTRITION-RELATED LAB VALUES LOW: HIGH: Est. kcal needs: Est. Pro needs: PES STATEMENT: INTERVENTION: MONITOR/EVALUATE: PO Intake; Plan of Care; Hydration Status; Weight Status; Lab Values David Bermudez MS, RD, LD Addendum: 01/05/20 at [address] Note entered without diet information by mistake. Rewritten Note with information provided. RD ASSESSMENT PMHx: CVA; hypercholesterolemia; stroke; TIA; chronic constipation; s/p repair for R hip fracture PT INTERACTION: Pt was sleeping during nutrition assessment. Note pt's present at bedside. states pt's current appetite is poor, and has been for "a while." Note avg PO intake 65% meals, per chart review. states pt follows a regular diet at the nursing facility he resides at, and has no issues with chewing/swallowing. Note pt is currently on DYS2 Mechanically Altered diet, which states is easier for the pt. Note pt needs feeder to assist in eating. states no recent issues with nausea or vomiting. is unsure of recent issues with constipation and diarrhea, and is also unsure of last BM. Note pt currently on bowel regimen of senna BID; and miralax BID, per chart review. states pt has probably lost some weight recently, but unsure of amount/timeframe. Note unable to determine recent wt hx, per chart review. ABNORMAL NUTRITION-RELATED LAB VALUES LOW: Na 134; Ca 8.4; Pro 4.9; alb 2.4 HIGH: AST 40 Est. kcal needs: 2563-2255 kcal | 25-30 kcal/kg Est. Pro needs: 63-76 g Pro | 1.0-1.2 g Pro/kg PES STATEMENT: Inadequate oral intake (NI-2.1) related to loss of appetite as evidenced by pt () interview | avg PO intake 65% meals INTERVENTION: Continue with current diet order of DYS2 Mechanically Altered diet. Pt will require assistance at meal times. Add Ensure Enlive (vary) to meals TID, for increased kcal intake. Provides 350 kcal and 13 g Pro per serving. Encouraged to encourage pt to eat when able. Will continue to follow and reassess as pt needs, intake, and status change. MONITOR/EVALUATE: PO Intake; Plan of Care; Hydration Status; Weight Status; Lab Values David Bermudez, MS, RD, LD
[2020-01-06] VITALS: BP 90/60
[2020-01-06] MEDS: LACTATED RINGERS 1,000 ML IV SCH (00:37)
[2020-01-06 04:00] VITALS: BP 99/62
[2020-01-06 05:54] LABS: HEMOGLOBIN 9.1 G/DL (13.3-17.7)
[2020-01-06] MEDS: MULTIVIT W/MINERALS TAB (THERAGRAN M) PO SCH (06:11)
[2020-01-06] MEDS ORDERED: ONDANSETRON 4 MG (ZOFRAN) ORAL DISSOLVE TAB PO PRN (06:45)
[2020-01-06] MEDS ORDERED: PREPARATION H OINTMENT 57 GR TUBE PR PRN (07:30)
[2020-01-06] MEDS ORDERED: ACETAMINOPHEN 325 MG TABLET PO PRN (07:30)
[2020-01-06] MEDS ORDERED: VALPROIC ACID SYRUP 250 MG/5 ML UDC PO SCH ×2 (07:30→21:00)
[2020-01-06 08:00] VITALS: BP 117/75
[2020-01-06] MEDS ORDERED: polyethylene glycoL POWDER 17 GM (MIRALAX) PACK PO SCH (09:00)
[2020-01-06] MEDS: IRON SUCROSE 200 MG/10 ML (VENOFER) VIAL IV SCH (09:28)
[2020-01-06] MEDS: toPIRamate 25 MG (TOPAMAX) TAB PO SCH (09:30)
[2020-01-06] MEDS: ASPIRIN E.C. 81 MG (ECOTRIN) TAB PO SCH (09:30)
[2020-01-06] MEDS: SENNOSIDES 8.6 MG (SENOKOT) TAB PO SCH ×2 (09:30→19:25)
[2020-01-06] MEDS: ENOXAPARIN 40 MG/0.4 ML (LOVENOX) SYR SC SCH (09:31)
[2020-01-06] MEDS: DOCUSATE SODIUM 100 MG (COLACE) CAP PO SCH ×2 (09:32→19:25)
[2020-01-06] MEDS: VALPROIC ACID SYRUP 250 MG/5 ML UDC PO SCH (09:53)
--- NOTE | 2020-01-06 10:03 | NUR ---
DISCHARGE PLANNING: This RN was asked to send clinical information to send to Sonal at [facility]. I have done this and sent via e-mail. No indication of when patient will be discharged, he was anemic yesterday and started iron infusions. Not working well with therapy due to pain and previous stroke limitations. He will return to [facility] when medically stable for skilled therapies.
--- NOTE | 2020-01-06 10:14 | Physical Therapy Daily Note ---
PT Daily Note-Current Subjective Patient is much more alert and answering questions appropriately. Agrees to PT. Spouse present. Pain Numeric Pain Scale: 10-Worst Possible Pain Location: Left Location Body Site: Hip Pain Description: Acute Comment: FLACC Transfers SCALE: Activities may be completed with or without assistive devices. 8-Rmiseiauja-gjfoqve completes the activity by him/herself with no assistance from a helper. 5-Set-up or Clean-up Assistance-helper sets up or cleans up; patient completes activity. [place] assists only prior to or following the activity. 4-Supervision or Touching Assistance-helper provides verbal cues and/or touching/steadying and/or contact guard assistance as patient completes activity. Assistance may be provided throughout the activity or intermittently. 3-Partial/Moderate Assistance-helper does LESS THAN HALF the effort. [place] lifts, holds or supports trunk or limbs, but provides less than half the effort. 2-Substantial/Maximal Assistance-helper does MORE THAN HALF the effort. [place] lifts or holds trunk or limbs and provides more than half the effort. 5-Dbfwstjpb-vvgqvj does ALL the effort. Patient does none of the effort to complete the activity. Or, the assistance of 2 or more helpers is required for the patient to complete the activity. If activity was not attempted, code reason: 7-Patient Refused. 9-Not Applicable-not attempted and the patient did not perform the activity before the current illness, exacerbation or injury. 10-Not Attempted due to Environmental Limitations-(lack of equipment, weather restraints, etc.). 88-Not Attempted due to Medical Conditions or Safety Concerns. Roll Left & Right (QC): 1 Lying to Sitting/Side of Bed(Q: 1 Sit to Stand (QC): 2 Chair/Wmv-zz-Yprdb Xfer(QC): 2 patient utilized FWW for transfer bed to recliner. Patient places minimal weight through left LE due to pain, however, patient was able to assist with transfer Weight Bearing Right Lower Extremity: Right Full Weight Bearing Left Lower Extremity: Left Weight Bearing/Tolerated Exercises Supine Ex: Ankle pumps, Heel Slides Supine Reps: 15 (PROM bilaterally) Seated Therapy Exercises: Long arc quads Seated Reps: 15 (PROM bilaterally) Assessment Patient is up in recliner with needs met. Patient able to assist with sit to stand and SPT bed to recliner with use of FWW and max assist. PT Custodial Goals Grain Grader Goals PT Grain Grader Goals Time Frame: Jan 10, 2020 Roll Left & Right (QC): 3 Sit to Lying (QC): 3 Lying-Sitting on Side/Bed(QC): 3 Sit to Stand (QC): 3 Chair/Pmk-gs-Lbhal Xfer(QC): 3 Does the Patient Walk: No and Walking Goal IS indicated Walk 10 feet (QC): 3 PT Plan Treatment/Plan Treatment Plan: Continue Plan of Care Treatment Plan: Bed Mobility, Education, Functional Activity Marly, Functional Strength, Gait, Safety, Therapeutic Exercise, Transfers Treatment Duration: Jan 10, 2020 Frequency: 11 times per week Estimated Hrs Per Day: .5 hour per day Patient and/or Family Agrees t: Yes Time/GCodes Time In: 925 Time Out: 941 Total Billed Treatment Time: 16 Total Billed Treatment 1 visit FA 16 min FAHAD NAZARIO PT Jan 06, 2020 10:14
[2020-01-06] MEDS ORDERED: BISACODYL 10 MG SUPP (DULCOLAX) PR NR (10:30)
[2020-01-06] MEDS ORDERED: FLEET ENEMA ADULT 1 EA BTL PR PRN (10:30)
--- NOTE | 2020-01-06 11:59 | Occupational Ther Daily Note ---
OT Current Status-Daily Note Subjective Pt. does not report pain or indicate pain to this therapist. Appearance Pt. up in chair. Spouse in room. Mental Status/Objective Patient Orientation: Unable to Assess Attachments: IV ADL-Treatment Therapy Code Descriptions/Definitions Functional [place] Measure: 0=Not Assessed/NA 4=Minimal Assistance 1=Total Assistance 5=Supervision or Setup 2=Maximal Assistance 6=Modified [place] 3=Moderate Assistance 7=Complete IndependenceSCALE: Activities may be completed with or without assistive devices. 7-Cddayiavbo-jvfkjqk completes the activity by him/herself with no assistance from a helper. 5-Set-up or Clean-up Assistance-helper sets up or cleans up; patient completes activity. [place] assists only prior to or following the activity. 4-Supervision or Touching Assistance-helper provides verbal cues and/or touching/steadying and/or contact guard assistance as patient completes activity. Assistance may be provided throughout the activity or intermittently. 3-Partial/Moderate Assistance-helper does LESS THAN HALF the effort. [place] lifts, holds or supports trunk or limbs, but provides less than half the effort. 2-Substantial/Maximal Assistance-helper does MORE THAN HALF the effort. [place] lifts or holds trunk or limbs and provides more than half the effort. 8-Zonwfmira-ltjupg does ALL the effort. Patient does none of the effort to complete the activity. Or, the assistance of 2 or more helpers is required for the patient to complete the activity. If activity was not attempted, code reason: 7-Patient Refused. 9-Not Applicable-not attempted and the patient did not perform the activity before the current illness, exacerbation or injury. 10-Not Attempted due to Environmental Limitations-(lack of equipment, weather restraints, etc.). 88-Not Attempted due to Medical Conditions or Safety Concerns. Eating (QC): 3 (Mod assist.) Other Treatment Pt. is up in chair. OT talks with pt. and spouse. Pt. watching tv and very interested in tv show. Spouse states that she fed pt. this morning, as he will bring spoon up to mouth but "stop." OT held open applesauce in front of pt. and gave him a spoon. Pt. able to dip spoon and bring to mouth. After a couple of bites, pt. would hold spoon in front of mouth but not put into mouth. With a small nudge, pt. would bring on to mouth. Pt. seems to have difficulty completing all steps involved with feeding, but is able to complete some. This was reported to spouse. Pt. then given warm washcloth and was able to wash chin. Unable to vary off of chin, even with cues. OT placed pt's hand onto cheeks and pt. was able to wash them. Pt. completed 2 bilateral UE exercises with active assist, x 10 reps for shoulder flexion and elbow flexion. All needs met up in chair. Education OT Patient Education: Correct positioning, Modified ADL techniques, Progress toward Goal/Update tx plan, Purpose of tx/functional activities, Reviewed precautions, Rehab process, Transfer techniques Teaching Recipient: Patient Teaching Methods: Demonstration, Discussion Response to Teaching: Reinforcement Needed OT Short Term Goals Short Term Goals Time Frame: Jan 12, 2020 Eatin Oral hygiene: 2 OT Medical Record Librarian Goals Senior Living Goals Time Frame: Jan 19, 2020 Eating (QC): 4 Oral Hygiene (QC): 3 Upper Body Dressing (QC): 3 Additional Goals: 1-Demonstrate ADL Tasks, 2-Verbalize Understanding, 3- ImproveStrength/Marly 1=Demonstrate adherence to instructed precautions during ADL tasks. 2=Patient will verbalize/demonstrate understanding of assistive devices/modifications for ADL. 3=Patient will improve strength/tolerance for activity to enable patient to perform ADL's. OT Education/Plan Problem List/Assessment Assessment: Decreased Activ Tolerance, Decreased UE Strength, Dependent Transfers, Impaired Bed Mobility, Impaired Cognition, Impaired Funct Balance, Impaired I ADL's, Impaired Self-Care Skills, Restricted Funct UE ROM Discharge Recommendations Plan/Recommendations: Continue POC Therapy Discharge Recommendati: 24 Hour Supervision Treatment Plan/Plan of Care Treatment,Training & Education: Yes Patient would benefit from OT for education, treatment and training to promote independence in ADL's, mobility, safety and/or upper extremity function for ADL's. Plan of Care: ADL Retraining, Caregiver Training, Functional Mobility, UE Funct Exercise/Act Treatment Duration: Jan 19, 2020 Frequency: 5 times per week Estimated Hrs Per Day: .25 hour per day Agreement: Yes Rehab Potential: Guarded Time/GCodes Start Time: 11:10 Stop Time: 11:30 Total Time Billed (hr/min): 20 Billed Treatment Time 1, ADL JAY GUTIERREZ OT Jan 06, 2020 11:59
[2020-01-06 12:00] VITALS: BP 112/66
[2020-01-06] MEDS: HYDROcodone/APAP 7.5 MG/325 MG (LORTAB, LORCET PLUS) TABLET PO PRN ×2 (12:49→21:58)
--- NOTE | 2020-01-06 13:30 | Progress Note ---
Standard Progress Note Progress Notes/Assess & Plan Date Seen by a Provider: Jan 06, 2020 Time Seen by a Provider: 13:29 Progress/Assessment & Plan no complaints Vital Signs Date Time Temp Pulse Resp B/P (MAP) Pulse Ox O2 Delivery O2 Flow Rate FiO2 01/04/20 04:00 37.6 103 18 100/62 (75) 95 Nasal Cannula 3.00 01/04/20 00:00 37.8 01/03/20 23:52 38.7 122 18 92/52 (65) 95 Nasal Cannula 3.00 01/03/20 23:30 38.7 01/03/20 19:56 37.9 122 18 100/57 (71) 95 Nasal Cannula 3.00 01/03/20 19:10 Nasal Cannula 3.00 01/03/20 15:50 37.1 109 18 101/60 (74) 92 Nasal Cannula 3.00 01/03/20 12:57 36.5 100 19 109/60 (76) 93 Nasal Cannula 3.00 01/03/20 11:58 93 Nasal Cannula 3.00 01/03/20 10:55 36.5 109 19 101/56 (71) 96 Nasal Cannula 3.00 01/03/20 10:30 Nasal Cannula 3 01/03/20 10:20 36.5 12 105/73 (84) 92 Nasal Cannula 3 01/03/20 10:15 Nasal Cannula 3 01/03/20 10:10 16 99/69 (79) 96 Nasal Cannula 3 01/03/20 10:00 14 101/76 (84) 97 OxyMask 10 01/03/20 10:00 OxyMask 10 01/03/20 09:50 14 100/73 (82) 98 OxyMask 10 01/03/20 09:45 OxyMask 10 01/03/20 09:40 15 106/63 (77) 96 OxyMask 10 01/03/20 09:30 36.8 16 126/83 (97) 99 OxyMask 10 01/03/20 09:30 OxyMask 10 I & O 01/04/20 07:00 Intake Total 5120 ml Output Total 755 ml Balance 4365 ml Laboratory Tests Test 01/04/20 05:35 Range/Units White Blood Count 16.9 H 4.3-11.0 10^3/uL Red Blood Count 2.52 L 4.35-5.85 10^6/uL Hemoglobin 7.6 #L 13.3-17.7 G/DL Hematocrit 23 L 40-54 % Mean Corpuscular Volume 93 80-99 FL Mean Corpuscular Hemoglobin 30 25-34 PG Mean Corpuscular Hemoglobin Concent 33 32-36 G/DL Red Cell Distribution Width 13.7 10.0-14.5 % Platelet Count 156 130-400 10^3/uL Mean Platelet Volume 10.9 H 7.4-10.4 FL Neutrophils (%) (Auto) 62 42-75 % Lymphocytes (%) (Auto) 17 12-44 % Monocytes (%) (Auto) 21 H 0-12 % Eosinophils (%) (Auto) 0 0-10 % Basophils (%) (Auto) 0 0-10 % Neutrophils # (Auto) 10.5 H 1.8-7.8 X 10^3 Lymphocytes # (Auto) 2.8 1.0-4.0 X 10^3 Monocytes # (Auto) 3.5 H 0.0-1.0 X 10^3 Eosinophils # (Auto) 0.0 0.0-0.3 10^3/uL Basophils # (Auto) 0.0 0.0-0.1 10^3/uL Sodium Level 136 135-145 MMOL/L Potassium Level 4.3 3.6-5.0 MMOL/L Chloride Level 108 H 98-107 MMOL/L Carbon Dioxide Level 20 L 21-32 MMOL/L Anion Gap 8 5-14 MMOL/L Blood Urea Nitrogen 17 7-18 MG/DL Creatinine 0.95 0.60-1.30 MG/DL Estimat Glomerular Filtration Rate > 60 BUN/Creatinine Ratio 18 Glucose Level 124 H 70-105 MG/DL Calcium Level 7.9 L 8.5-10.1 MG/DL Corrected Calcium 9.1 8.5-10.1 MG/DL Total Bilirubin 0.5 0.1-1.0 MG/DL Aspartate Amino Transf (AST/SGOT) 31 5-34 U/L Alanine Aminotransferase (ALT/SGPT) 11 0-55 U/L Alkaline Phosphatase 56 40-136 U/L Total Protein 4.9 L 6.4-8.2 GM/DL Albumin 2.5 L 3.2-4.5 GM/DL L hip dressing in place Intact DF and PF of toes and ankle symmetric pulses radiographs reveal well placed HW without fracture s/p L hip bipolar PT as tolerated to NH in next 1-2 days if medically stable Final Diagnosis no complaints Vital Signs Date Time Temp Pulse Resp B/P (MAP) Pulse Ox O2 Delivery O2 Flow Rate FiO2 01/06/20 12:00 37.6 98 18 112/66 (81) 95 Nasal Cannula 3.00 01/06/20 08:00 36.6 105 18 117/75 (89) 99 Nasal Cannula 3.00 01/06/20 08:00 95 Nasal Cannula 2.00 01/06/20 04:00 36.6 89 16 99/62 (74) 98 Nasal Cannula 3.00 01/06/20 00:00 37.2 96 16 90/60 (70) 97 Nasal Cannula 3.00 01/05/20 20:00 95 Nasal Cannula 2.00 01/05/20 19:32 37.7 102 18 110/61 (77) 97 Nasal Cannula 3.00 01/05/20 16:10 37.4 101 100/64 01/05/20 16:04 37.4 101 16 100/64 (76) 92 Nasal Cannula 3.00 01/05/20 14:17 37.1 109 139/79 01/05/20 14:00 37.8 98 128/74 I & O 01/06/20 07:00 Intake Total 2840 ml Output Total 2025 ml Balance 815 ml Laboratory Tests Test 01/06/20 05:28 01/06/20 11:25 Range/Units Hemoglobin 9.1 #L 13.3-17.7 G/DL Hematocrit 27 L 40-54 % Lab Scanned Report Transfusion Reaction Form [id number] L hip incision clean and dry. s/p L hip bipolar to NH tomorrow WILLY EVANS MD Jan 06, 2020 13:30
--- NOTE | 2020-01-06 15:08 | NUR ---
PT WAS INCONT OF ONE LARGE LOOSE BM
[2020-01-06 15:23] VITALS: BP 109/66
--- NOTE | 2020-01-06 15:30 | NUR ---
PT UNABLE TO WALK DUE TO JUST GETTING A NEW HIP. PT DIDN'T REQUIRE OXYGEN DURING THE TIME ON ROOM AIR.
--- NOTE | 2020-01-06 15:53 | NUR ---
Pastoral care visit.
[2020-01-06 19:26] VITALS: BP 113/68
--- NOTE | 2020-01-06 19:26 | Progress Note - Hospitalist ---
Subjective HPI/CC On Admission Date Seen by Provider: Jan 06, 2020 Time Seen by Provider: 10:00 CC: Left hip fracture HPI: This is a 64yoWM [place] patient of Dr José in [facility] where he has lived since CVA who presented to [facility] after [place] xray obtained revealing left hip fracture s/p fall. Patient is currently post op and drowsy and additionally he is a poor historian so his is at bedside who answers some questions. Landrum is in place. Repair went uncomplicated. No pain reported currently. already asking if she can bring him back to the [place] in her car and I told her we would take one day at a time and see where we were at time of DC. Subjective/Events-last exam Weaning oxygen today, will need a home O2 evaluation since he is going [place] been for four years tomorrow Hgb 9.1 Landrum catheter will be discontinued No BM yet, will start regimen including a soap-suds enema Will heplock IV fluid also Pain is well controlled Review of Systems Gastrointestinal: Constipation Musculoskeletal: leg pain Objective Exam Vital Signs Vital Signs Date Time Temp Pulse Resp B/P (MAP) Pulse Ox O2 Delivery O2 Flow Rate FiO2 01/06/20 15:30 91 01/06/20 15:23 37.6 111 16 109/66 (80) 01/06/20 12:00 Nasal Cannula 3.00 Capillary Refill : Less Than 3 SecondsLess Than 3 Seconds General Appearance: No Apparent Distress, WD/WN, Chronically ill Respiratory: Chest Non Tender, Lungs Clear, Normal Breath Sounds, No Accessory Muscle Use, No Respiratory Distress Cardiovascular: Regular Rate, Rhythm, No Edema, No Gallop, No JVD, No Murmur, Normal Peripheral Pulses Neurologic/Psychiatric: Alert, Disoriented Results/Procedures Lab Laboratory Tests 01/06/20 05:28 Patient resulted labs reviewed. Assessment/Plan Assessment and Plan Assess & Plan/Chief Complaint Assessment: Left hip fracture s/p uncomplicated repair Dr Sommer POD # 3 h/o CVA HTN Seizures? Post op anemia due to acute blood loss started iron infusions s/p 2 units of blood yesterday Plan: Landrum DC Pain meds IVF HL Monitor closely BM regimen to intensify Home meds Iron infusions DC tomorrow Diagnosis/Problems Diagnosis/Problems (1) Hip fracture, left (2) History of CVA (cerebrovascular accident) (3) Hypertension (4) Seizure (5) Leukocytosis Clinical Quality Measures DVT/VTE Risk/Contraindication: Risk Factor Score Per Nursin RFS Level Per Nursing on Admit: 4+=Very High Contraindications-Pharm: Other *list below* Other: surgery 01/03/20 0800 BERENICE NGO DO Jan 06, 2020 19:26
[2020-01-07 00:15] VITALS: BP 115/58
[2020-01-07 04:55] VITALS: BP 101/66
[2020-01-07 05:38] LABS: BASOPHILS % (AUTO) 0 % (0-10); EOSINOPHILS # (AUTO) 0.1 10^3/uL (0.0-0.3); EOSINOPHILS % (AUTO) 1 % (0-10); HEMATOCRIT 28 % (40-54); HEMOGLOBIN 9.1 G/DL (13.3-17.7); LYMPHOCYTES # (AUTO) 2.2 X 10^3 (1.0-4.0); LYMPHOCYTES % (AUTO) 22 % (12-44); MEAN CORPUSCULAR HEMOGLOBIN 30 PG (25-34); MEAN CORPUSCULAR HGB CONC 33 G/DL (32-36); MEAN CORPUSCULAR VOLUME 92 FL (80-99); MEAN PLATELET VOLUME 10.3 FL (7.4-10.4); MONOCYTES # (AUTO) 1.5 X 10^3 (0.0-1.0); MONOCYTES % (AUTO) 15 % (0-12); NEUTROPHILS # (AUTO) 6.1 X 10^3 (1.8-7.8); NEUTROPHILS % (AUTO) 62 % (42-75); PLATELET COUNT 237 10^3/uL (130-400); RED CELL DISTRIBUTION WIDTH 13.9 % (10.0-14.5); WHITE BLOOD COUNT 9.9 10^3/uL (4.3-11.0)
[2020-01-07 05:55] LABS: ALBUMIN 2.4 GM/DL (3.2-4.5); CHLORIDE 108 MMOL/L (98-107); POTASSIUM 4.1 MMOL/L (3.6-5.0); SODIUM 138 MMOL/L (135-145)
[2020-01-07 05:57] LABS: CALCIUM 8.4 MG/DL (8.5-10.1)
[2020-01-07 05:58] LABS: GLUCOSE 98 MG/DL (70-105); TOTAL PROTEIN 5.2 GM/DL (6.4-8.2)
[2020-01-07 05:59] LABS: CARBON DIOXIDE 26 MMOL/L (21-32)
[2020-01-07 06:00] LABS: BILIRUBIN,TOTAL 0.8 MG/DL (0.1-1.0)
[2020-01-07 06:01] LABS: ALKALINE PHOSPHATASE 142 U/L (40-136); CREATININE SERUM 0.77 MG/DL (0.60-1.30); GFR ESTIMATED > 60
[2020-01-07 06:03] LABS: BUN/CREATININE RATIO 12
[2020-01-07 06:04] LABS: ALANINE AMINOTRANSFERASE 26 U/L (0-55)
[2020-01-07] MEDS: MULTIVIT W/MINERALS TAB (THERAGRAN M) PO SCH (06:32)
[2020-01-07 08:00] VITALS: BP 139/59
[2020-01-07] MEDS: SENNOSIDES 8.6 MG (SENOKOT) TAB PO SCH (08:27)
[2020-01-07] MEDS: DOCUSATE SODIUM 100 MG (COLACE) CAP PO SCH (08:27)
[2020-01-07] MEDS: ENOXAPARIN 40 MG/0.4 ML (LOVENOX) SYR SC SCH (08:27)
[2020-01-07] MEDS: toPIRamate 25 MG (TOPAMAX) TAB PO SCH (08:27)
[2020-01-07] MEDS: ASPIRIN E.C. 81 MG (ECOTRIN) TAB PO SCH (08:27)
[2020-01-07] MEDS: VALPROIC ACID SYRUP 250 MG/5 ML UDC PO SCH (08:59)
[2020-01-07] MEDS: HYDROcodone/APAP 7.5 MG/325 MG (LORTAB, LORCET PLUS) TABLET PO PRN ×2 (09:04→12:46)
--- NOTE | 2020-01-07 09:31 | Occupational Ther Daily Note ---
OT Current Status-Daily Note Subjective Nursing giving pt. pain medication when OT comes into room. Pain reported in left hip at 8/10. Appearance Pt. in bed and is watching tv. Spouse in room. Mental Status/Objective Patient Orientation: Unable to Assess Attachments: IV ADL-Treatment Therapy Code Descriptions/Definitions Functional [place] Measure: 0=Not Assessed/NA 4=Minimal Assistance 1=Total Assistance 5=Supervision or Setup 2=Maximal Assistance 6=Modified [place] 3=Moderate Assistance 7=Complete IndependenceSCALE: Activities may be completed with or without assistive devices. 6-Zctzeyfbzg-ktcytrl completes the activity by him/herself with no assistance from a helper. 5-Set-up or Clean-up Assistance-helper sets up or cleans up; patient completes activity. [place] assists only prior to or following the activity. 4-Supervision or Touching Assistance-helper provides verbal cues and/or touching/steadying and/or contact guard assistance as patient completes activity. Assistance may be provided throughout the activity or intermittently. 3-Partial/Moderate Assistance-helper does LESS THAN HALF the effort. [place] lifts, holds or supports trunk or limbs, but provides less than half the effort. 2-Substantial/Maximal Assistance-helper does MORE THAN HALF the effort. [place] lifts or holds trunk or limbs and provides more than half the effort. 3-Acqojsujl-ongwxe does ALL the effort. Patient does none of the effort to complete the activity. Or, the assistance of 2 or more helpers is required for the patient to complete the activity. If activity was not attempted, code reason: 7-Patient Refused. 9-Not Applicable-not attempted and the patient did not perform the activity before the current illness, exacerbation or injury. 10-Not Attempted due to Environmental Limitations-(lack of equipment, weather restraints, etc.). 88-Not Attempted due to Medical Conditions or Safety Concerns. Other Treatment Nursing getting ready to administer pain medication with applesauce. Pt. given cup with straw/lid to hold, so that he can take drink after applesauce. Nursing gives applesauce but pt. forgets to take drink. Spouse reminds him. Pt. able to bring to mouth and drink. Pt. participated in bilateral UE exercises. Completed AAROM for shoulder flexion, elbow flexion/extension, and hand squeezes. Completed 10 reps each. Pt. then given lotion on hand, and encouraged to bring hands together to rub together for bilateral integration. Pt. able to bring together, but unable to fully rub lotion in. OT did this for him. All needs met in bed and neck/head repositioned. Education OT Patient Education: Correct positioning, Exercise program, Modified ADL techniques, Progress toward Goal/Update tx plan, Purpose of tx/functional activities, Reviewed precautions, Rehab process Teaching Recipient: Patient Teaching Methods: Demonstration, Discussion Response to Teaching: Verbalize Understanding, Return Demonstration OT Short Term Goals Short Term Goals Time Frame: Jan 12, 2020 Eatin Oral hygiene: 2 OT Public Health Administrator Goals Public Health Administrator Goals Time Frame: Jan 19, 2020 Eating (QC): 4 Oral Hygiene (QC): 3 Upper Body Dressing (QC): 3 Additional Goals: 1-Demonstrate ADL Tasks, 2-Verbalize Understanding, 3- ImproveStrength/Marly 1=Demonstrate adherence to instructed precautions during ADL tasks. 2=Patient will verbalize/demonstrate understanding of assistive devices/modifications for ADL. 3=Patient will improve strength/tolerance for activity to enable patient to perform ADL's. OT Education/Plan Problem List/Assessment Assessment: Decreased Activ Tolerance, Decreased UE Strength, Impaired Bed Mobility, Impaired I ADL's, Impaired Self-Care Skills Discharge Recommendations Plan/Recommendations: Continue POC Therapy Discharge Recommendati: 24 Hour Supervision Treatment Plan/Plan of Care Treatment,Training & Education: Yes Patient would benefit from OT for education, treatment and training to promote independence in ADL's, mobility, safety and/or upper extremity function for ADL's. Plan of Care: ADL Retraining, Caregiver Training, Functional Mobility, UE Funct Exercise/Act Treatment Duration: Jan 19, 2020 Frequency: 5 times per week Estimated Hrs Per Day: .25 hour per day Agreement: Yes Rehab Potential: Fair Time/GCodes Start Time: 09:00 Stop Time: 09:15 Total Time Billed (hr/min): 15 Billed Treatment Time 1, Ex JAY GUTIERREZ OT Jan 07, 2020 09:31
[2020-01-07] MEDS ORDERED: SNN187T PO (11:00)
[2020-01-07] MEDS ORDERED: HYDR-34 PO (11:00)
[2020-01-07] MEDS ORDERED: ENOX40DI8 SC (11:00)
--- NOTE | 2020-01-07 11:01 | Discharge Inst-Skilled Nursing ---
Discharge Inst-Skilled NF Reconcile Patient Problems Problems Reviewed?: Yes Chief Complaint CC: Left hip fracture HPI: This is a 64yoWM [place] patient of Dr José in [facility] where he has lived since CVA who presented to [facility] after [facility] xray obtained revealing left hip fracture s/p fall. Patient is currently post op and drowsy and additionally he is a poor historian so his is at bedside who answers some questions. Landrum is in place. Repair went uncomplicated. No pain reported currently. already asking if she can bring him back to the NH in her car and I told her we would take one day at a time and see where we were at time of DC. Patient Instructions Patient Problems: Left hip fracture Goal: Recover Consult/Follow Up/Orders Follow Up Appt.: [facility] rounds 1 week Skilled NF Admit to: Certification (SNF) I certify that SNF services are required to be given on an inpatient basis because of the above named patient's need for [place] [facility] care on a continuing basis for the conditions(s) for which he/she was receiving inpatient hospital services prior to his/her transfer to the SNF. [facility] Facility Order: Nursing Services, Brake Coupler Dinkey-Evaluate & Treat, Physical Therapy-Evaluate & Treat, Speech Language-Evaluate & Treat Oxygen Delivery Method: Room Air Discharge Diet: No Restrictions Resuscitation Status: Do Not Resuscitate New & Resume Previous Orders New Medications: Enoxaparin Sodium (Enoxaparin Sodium) 40 Mg/0.4 Ml Syringe 40 MG SC Q24H for 30 Days, SYRINGE Hydrocodone Bit/Acetaminophen (HYDROcodone/APAP 7.5/325 TAB) 1 Ea Tablet 1 EA PO Q2HR PRN for PAIN-MODERATE (5-7), #30 TAB Sennosides (Senna Lax) 8.6 Mg Tablet 8.6 MG PO BID for 30 Days, TAB Continued Medications: Acetaminophen (Tylenol) 325 Mg Capsule 650 MG PO Q6H PRN for PAIN-MILD (1-4) OR TEMPATURE, CAP Aspirin (Aspirin EC) 81 Mg Tablet.dr 81 MG PO DAILY, TAB Citalopram Hydrobromide (Celexa) 20 Mg Tablet 20 MG PO DAILY, TAB Docusate Sodium (Docusate Sodium) 100 Mg Tablet 100 MG PO BID, TAB Ondansetron (Ondansetron Odt) 4 Mg Tab.rapdis 4 MG PO Q6H PRN for NAUSEA/VOMITING-1ST LINE, TAB Phenyleph/Pramoxin/Glycr/W.pet (Preparation H Cream) 26 Gm Cream..g. 1 APPFUL RC QID PRN for HEMMORRHOID DISCOMFORT, TUBE Polyethylene Glycol 3350 (Miralax) 17 Gm Powd.pack 17 GM PO Q48H, EACH Topiramate (Topiramate) 50 Mg Tablet 50 MG PO DAILY, TAB Valproic Acid (As Sodium Salt) (Valproic Acid) 250 Mg/5 Ml Solution 10 ML PO HS, ML Valproic Acid (As Sodium Salt) (Valproic Acid) 250 Mg/5 Ml Solution 5 ML PO DAILY, MEGAN Deutsch Jan 07, 2020 11:00 BERENICE DEUTSCH DO Jan 07, 2020 11:01
--- NOTE | 2020-01-07 11:02 | Discharge Summary ---
Discharge Summary Hospital Course Was the Problem List Reviewed?: Yes Problems/Dx: (1) Hip fracture, left (2) History of CVA (cerebrovascular accident) (3) Hypertension (4) Seizure (5) Leukocytosis Hospital Course Date of Admission: Jan 02, 2020 at 17:18 Admission Diagnosis : Family Physician/Provider: Scottie José MD Date of Discharge: 01/07/20 Discharge Diagnosis: hip fracture, h/o CVA 4 yrs ago Hospital Course: Hospital Course: Pt had an uneventful hospital course for 6 days, he was admitted after a fall, sustained a left hip fracture. [facility] since his stroke. Overall he required an uncomplicated repair by Dr. Sommer. Transfusions of 2 units were given and pt remained stable. Bowels function returned normal after laxatives, catheter was removed and he was able to void normally. Pt was deemed stable for DC on Lovenox for 30 days and continue on his current home medications. Labs and Pending Lab Test: Laboratory Tests 01/06/20 11:25: Lab Scanned Report Transfusion Reaction Form 01/07/20 05:25: White Blood Count 9.9, Red Blood Count 3.03L, Hemoglobin 9.1L, Hematocrit 28L, Mean Corpuscular Volume 92, Mean Corpuscular Hemoglobin 30, Mean Corpuscular Hemoglobin Concent 33, Red Cell Distribution Width 13.9, Platelet Count 237, Mean Platelet Volume 10.3, Neutrophils (%) (Auto) 62, Lymphocytes (%) (Auto) 22, Monocytes (%) (Auto) 15H, Eosinophils (%) (Auto) 1, Basophils (%) (Auto) 0, Neutrophils # (Auto) 6.1, Lymphocytes # (Auto) 2.2, Monocytes # (Auto) 1.5H, Eosinophils # (Auto) 0.1, Basophils # (Auto) 0.0, Sodium Level 138, Potassium Level 4.1, Chloride Level 108H, Carbon Dioxide Level 26, Anion Gap 4L, Blood Urea Nitrogen 9, Creatinine 0.77, Estimat Glomerular Filtration Rate > 60, BUN/Creatinine Ratio 12, Glucose Level 98, Calcium Level 8.4L, Corrected Calcium 9.7, Total Bilirubin 0.8, Aspartate Amino Transf (AST/SGOT) 41H, Alanine Aminotransferase (ALT/SGPT) 26, Alkaline Phosphatase 142H, Total Protein 5.2L, Albumin 2.4L Microbiology 01/02/20 MRSA Screen - Final, Complete MRSA not isolated Home Meds Active Senna Lax (Sennosides) 8.6 Mg Tablet 8.6 Mg PO BID 30 Days HYDROcodone/APAP 7.5/325 TAB (Acetaminophen/Hydrocodone Bitart) 1 Ea Tablet 1 Ea PO Q2HR PRN Enoxaparin Sodium 40 Mg/0.4 Ml Syringe 40 Mg SC Q24H 30 Days Reported Ondansetron Odt (Ondansetron) 4 Mg Tab.rapdis 4 Mg PO Q6H PRN Aspirin EC (Aspirin) 81 Mg Tablet.dr 81 Mg PO DAILY Valproic Acid (Valproic Acid (As Sodium Salt)) 250 Mg/5 Ml Solution 5 Ml PO DAILY Miralax (Polyethylene Glycol 3350) 17 Gm Powd.pack 17 Gm PO Q48H Valproic Acid (Valproic Acid (As Sodium Salt)) 250 Mg/5 Ml Solution 10 Ml PO HS Tylenol (Acetaminophen) 325 Mg Capsule 650 Mg PO Q6H PRN Topiramate 50 Mg Tablet 50 Mg PO DAILY Preparation H Cream (Phenyleph/Pramoxin/Glycr/W.pet) 26 Gm Cream..g. 1 Appful RC QID PRN Docusate Sodium 100 Mg Tablet 100 Mg PO BID Celexa (Citalopram Hydrobromide) 20 Mg Tablet 20 Mg PO DAILY Assessment/Pt Instructions CH[facility] 1 week Discharge Planning: <30 minutes discharge planning Discharge Instructions Discharge Diet: No Restrictions Discharge Physical Examination Vital Signs Vital Signs Date Time Temp Pulse Resp B/P (MAP) Pulse Ox O2 Delivery O2 Flow Rate FiO2 01/07/20 08:00 36.5 112 19 139/59 (85) 90 Room Air 01/07/20 08:00 3.00 General Appearance: No Apparent Distress, WD/WN, Chronically ill Allergies: Coded Allergies: metformin (Verified Allergy, Unknown, 01/02/20) Discharge Summary Date of Admission Jan 02, 2020 at 17:18 Date of Discharge Discharge Date: Jan 07, 2020 Admission Diagnosis Assessment: Left hip fracture s/p uncomplicated repair Dr Sommer POD # 0 h/o CVA HTN Seizures? Plan: Landrum Pain meds IVF Monitor closely Discharge Diagnosis Assessment: Left hip fracture s/p uncomplicated repair Dr Sommer POD # 3 h/o CVA HTN Seizures? Post op anemia due to acute blood loss started iron infusions s/p 2 units of blood yesterday Plan: Landrum DC Pain meds IVF HL Monitor closely BM regimen to intensify Home meds Iron infusions DC tomorrow (1) Hip fracture, left (2) History of CVA (cerebrovascular accident) (3) Hypertension (4) Seizure (5) Leukocytosis Clinical Quality Measures DVT/VTE Risk/Contraindication: Risk Factor Score Per Nursin RFS Level Per Nursing on Admit: 4+=Very High Contraindications-Pharm: Other *list below* Other: surgery 01/03/20 0800 BERENICE NGO DO Jan 07, 2020 11:02
--- NOTE | 2020-01-07 11:09 | Progress Note ---
Standard Progress Note Progress Notes/Assess & Plan Date Seen by a Provider: Jan 07, 2020 Time Seen by a Provider: 11:08 Progress/Assessment & Plan no complaints Vital Signs Date Time Temp Pulse Resp B/P (MAP) Pulse Ox O2 Delivery O2 Flow Rate FiO2 01/04/20 04:00 37.6 103 18 100/62 (75) 95 Nasal Cannula 3.00 01/04/20 00:00 37.8 01/03/20 23:52 38.7 122 18 92/52 (65) 95 Nasal Cannula 3.00 01/03/20 23:30 38.7 01/03/20 19:56 37.9 122 18 100/57 (71) 95 Nasal Cannula 3.00 01/03/20 19:10 Nasal Cannula 3.00 01/03/20 15:50 37.1 109 18 101/60 (74) 92 Nasal Cannula 3.00 01/03/20 12:57 36.5 100 19 109/60 (76) 93 Nasal Cannula 3.00 01/03/20 11:58 93 Nasal Cannula 3.00 01/03/20 10:55 36.5 109 19 101/56 (71) 96 Nasal Cannula 3.00 01/03/20 10:30 Nasal Cannula 3 01/03/20 10:20 36.5 12 105/73 (84) 92 Nasal Cannula 3 01/03/20 10:15 Nasal Cannula 3 01/03/20 10:10 16 99/69 (79) 96 Nasal Cannula 3 01/03/20 10:00 14 101/76 (84) 97 OxyMask 10 01/03/20 10:00 OxyMask 10 01/03/20 09:50 14 100/73 (82) 98 OxyMask 10 01/03/20 09:45 OxyMask 10 01/03/20 09:40 15 106/63 (77) 96 OxyMask 10 01/03/20 09:30 36.8 16 126/83 (97) 99 OxyMask 10 01/03/20 09:30 OxyMask 10 I & O 01/04/20 07:00 Intake Total 5120 ml Output Total 755 ml Balance 4365 ml Laboratory Tests Test 01/04/20 05:35 Range/Units White Blood Count 16.9 H 4.3-11.0 10^3/uL Red Blood Count 2.52 L 4.35-5.85 10^6/uL Hemoglobin 7.6 #L 13.3-17.7 G/DL Hematocrit 23 L 40-54 % Mean Corpuscular Volume 93 80-99 FL Mean Corpuscular Hemoglobin 30 25-34 PG Mean Corpuscular Hemoglobin Concent 33 32-36 G/DL Red Cell Distribution Width 13.7 10.0-14.5 % Platelet Count 156 130-400 10^3/uL Mean Platelet Volume 10.9 H 7.4-10.4 FL Neutrophils (%) (Auto) 62 42-75 % Lymphocytes (%) (Auto) 17 12-44 % Monocytes (%) (Auto) 21 H 0-12 % Eosinophils (%) (Auto) 0 0-10 % Basophils (%) (Auto) 0 0-10 % Neutrophils # (Auto) 10.5 H 1.8-7.8 X 10^3 Lymphocytes # (Auto) 2.8 1.0-4.0 X 10^3 Monocytes # (Auto) 3.5 H 0.0-1.0 X 10^3 Eosinophils # (Auto) 0.0 0.0-0.3 10^3/uL Basophils # (Auto) 0.0 0.0-0.1 10^3/uL Sodium Level 136 135-145 MMOL/L Potassium Level 4.3 3.6-5.0 MMOL/L Chloride Level 108 H 98-107 MMOL/L Carbon Dioxide Level 20 L 21-32 MMOL/L Anion Gap 8 5-14 MMOL/L Blood Urea Nitrogen 17 7-18 MG/DL Creatinine 0.95 0.60-1.30 MG/DL Estimat Glomerular Filtration Rate > 60 BUN/Creatinine Ratio 18 Glucose Level 124 H 70-105 MG/DL Calcium Level 7.9 L 8.5-10.1 MG/DL Corrected Calcium 9.1 8.5-10.1 MG/DL Total Bilirubin 0.5 0.1-1.0 MG/DL Aspartate Amino Transf (AST/SGOT) 31 5-34 U/L Alanine Aminotransferase (ALT/SGPT) 11 0-55 U/L Alkaline Phosphatase 56 40-136 U/L Total Protein 4.9 L 6.4-8.2 GM/DL Albumin 2.5 L 3.2-4.5 GM/DL L hip dressing in place Intact DF and PF of toes and ankle symmetric pulses radiographs reveal well placed HW without fracture s/p L hip bipolar PT as tolerated to NH in next 1-2 days if medically stable Final Diagnosis his states that he appears to be feeling better Vital Signs Date Time Temp Pulse Resp B/P (MAP) Pulse Ox O2 Delivery O2 Flow Rate FiO2 01/07/20 08:00 36.5 112 19 139/59 (85) 90 Room Air 01/07/20 08:00 90 Room Air 3.00 01/07/20 04:55 37.2 54 16 101/66 (78) 93 Room Air 01/07/20 00:15 37.4 92 20 115/58 (77) 91 Room Air 01/06/20 20:05 Room Air 01/06/20 19:26 37.8 116 20 113/68 (83) 94 Room Air 01/06/20 15:30 91 01/06/20 15:23 37.6 111 16 109/66 (80) 92 Room Air 01/06/20 13:20 37.6 01/06/20 12:00 37.6 98 18 112/66 (81) 95 Nasal Cannula 3.00 I & O 01/07/20 07:00 Intake Total 2587 ml Output Total 700 ml Balance 1887 ml Laboratory Tests Test 01/06/20 11:25 01/07/20 05:25 Range/Units Lab Scanned Report Transfusion Reaction Form [id number] White Blood Count 9.9 4.3-11.0 10^3/uL Red Blood Count 3.03 L 4.35-5.85 10^6/uL Hemoglobin 9.1 L 13.3-17.7 G/DL Hematocrit 28 L 40-54 % Mean Corpuscular Volume 92 80-99 FL Mean Corpuscular Hemoglobin 30 25-34 PG Mean Corpuscular Hemoglobin Concent 33 32-36 G/DL Red Cell Distribution Width 13.9 10.0-14.5 % Platelet Count 237 130-400 10^3/uL Mean Platelet Volume 10.3 7.4-10.4 FL Neutrophils (%) (Auto) 62 42-75 % Lymphocytes (%) (Auto) 22 12-44 % Monocytes (%) (Auto) 15 H 0-12 % Eosinophils (%) (Auto) 1 0-10 % Basophils (%) (Auto) 0 0-10 % Neutrophils # (Auto) 6.1 1.8-7.8 X 10^3 Lymphocytes # (Auto) 2.2 1.0-4.0 X 10^3 Monocytes # (Auto) 1.5 H 0.0-1.0 X 10^3 Eosinophils # (Auto) 0.1 0.0-0.3 10^3/uL Basophils # (Auto) 0.0 0.0-0.1 10^3/uL Sodium Level 138 135-145 MMOL/L Potassium Level 4.1 3.6-5.0 MMOL/L Chloride Level 108 H 98-107 MMOL/L Carbon Dioxide Level 26 21-32 MMOL/L Anion Gap 4 L 5-14 MMOL/L Blood Urea Nitrogen 9 7-18 MG/DL Creatinine 0.77 0.60-1.30 MG/DL Estimat Glomerular Filtration Rate > 60 BUN/Creatinine Ratio 12 Glucose Level 98 70-105 MG/DL Calcium Level 8.4 L 8.5-10.1 MG/DL Corrected Calcium 9.7 8.5-10.1 MG/DL Total Bilirubin 0.8 0.1-1.0 MG/DL Aspartate Amino Transf (AST/SGOT) 41 H 5-34 U/L Alanine Aminotransferase (ALT/SGPT) 26 0-55 U/L Alkaline Phosphatase 142 H 40-136 U/L Total Protein 5.2 L 6.4-8.2 GM/DL Albumin 2.4 L 3.2-4.5 GM/DL L hip incision clean and dry no calf tenderness s/p L hip bipolar to NH today WILLY EVNAS MD Jan 07, 2020 11:09
--- NOTE | 2020-01-07 11:38 | Physical Therapy Daily Note ---
PT Daily Note-Current Subjective Pt. in bed, at bedside. supportive and helpful. Pt. does not speak but appears in pain with gentle PAAROM and TRF to EOB Transfers SCALE: Activities may be completed with or without assistive devices. 4-Sinizoweqd-wbuglon completes the activity by him/herself with no assistance from a helper. 5-Set-up or Clean-up Assistance-helper sets up or cleans up; patient completes activity. [place] assists only prior to or following the activity. 4-Supervision or Touching Assistance-helper provides verbal cues and/or touching/steadying and/or contact guard assistance as patient completes activity. Assistance may be provided throughout the activity or intermittently. 3-Partial/Moderate Assistance-helper does LESS THAN HALF the effort. [place] lifts, holds or supports trunk or limbs, but provides less than half the effort. 2-Substantial/Maximal Assistance-helper does MORE THAN HALF the effort. [place] l ifts or holds trunk or limbs and provides more than half the effort. 5-Hjelurzai-kynvob does ALL the effort. Patient does none of the effort to complete the activity. Or, the assistance of 2 or more helpers is required for the patient to complete the activity. If activity was not attempted, code reason: 7-Patient Refused. 9-Not Applicable-not attempted and the patient did not perform the activity before the current illness, exacerbation or injury. 10-Not Attempted due to Environmental Limitations-(lack of equipment, weather restraints, etc.). 88-Not Attempted due to Medical Conditions or Safety Concerns. sup to sit edge of bed mod assist of 2. sat EOB 5 min then sit to stand min assist with bed height elevated slightly, SPT bed to recliner with FWW mod to min assist of therapist and Weight Bearing Right Lower Extremity: Right Full Weight Bearing Left Lower Extremity: Left Weight Bearing/Tolerated Gait Training Does the Patient Walk?: Yes Gait Assistive Device: FWW Exercises Supine Ex: Ankle pumps, Heel Slides, Hip abd/add Supine Reps: 10 (gentle) Assessment Current Status: Good Progress up in recliner after Rx, call bridges and at side PT Stock Room Manager Goals Stock Room Manager Goals PT Stock Room Manager Goals Time Frame: Jan 10, 2020 Roll Left & Right (QC): 3 Sit to Lying (QC): 3 Lying-Sitting on Side/Bed(QC): 3 Sit to Stand (QC): 3 Chair/Otx-pb-Oqryo Xfer(QC): 3 Does the Patient Walk: No and Walking Goal IS indicated Walk 10 feet (QC): 3 PT Plan Treatment/Plan Treatment Plan: Continue Plan of Care Treatment Plan: Bed Mobility, Education, Functional Activity Marly, Functional Strength, Gait, Safety, Therapeutic Exercise, Transfers Treatment Duration: Jan 10, 2020 Frequency: 11 times per week Estimated Hrs Per Day: .5 hour per day Patient and/or Family Agrees t: Yes Safety Risks/Education Patient Education: Transfer Techniques, Correct Positioning, Disease Process, Safety Issues Teaching Recipient: Patient, Family Teaching Methods: Demonstration, Discussion Response to Teaching: Verbalize Understanding, Return Demonstration, Reinforcement Needed Time/GCodes Time In: 1025 Time Out: 1045 Total Billed Treatment Time: 20 Total Billed Treatment 1,FAEddiem RANJIT TATUM TEACHER SPECIALIST Jan 07, 2020 11:37
--- NOTE | 2020-01-07 11:46 | Physical Therapy Daily Note ---
PT Daily Note-Current Subjective Pt. in bed, at bedside. Pt. did not speak when asked questions or greeted, gives all responses. Pain Location: No Pain Reported Comment: pt. does whince and resist when gentle P/AAROM done LLE Transfers SCALE: Activities may be completed with or without assistive devices. 9-Jnitjgoxyy-syzhxbr completes the activity by him/herself with no assistance from a helper. 5-Set-up or Clean-up Assistance-helper sets up or cleans up; patient completes activity. [place] assists only prior to or following the activity. 4-Supervision or Touching Assistance-helper provides verbal cues and/or touching/steadying and/or contact guard assistance as patient completes activity. Assistance may be provided throughout the activity or intermittently. 3-Partial/Moderate Assistance-helper does LESS THAN HALF the effort. [place] lifts, holds or supports trunk or limbs, but provides less than half the effort. 2-Substantial/Maximal Assistance-helper does MORE THAN HALF the effort. [place] lifts or holds trunk or limbs and provides more than half the effort. 0-Ntuufwgun-xqkvnn does ALL the effort. Patient does none of the effort to complete the activity. Or, the assistance of 2 or more helpers is required for the patient to complete the activity. If activity was not attempted, code reason: 7-Patient Refused. 9-Not Applicable-not attempted and the patient did not perform the activity before the current illness, exacerbation or injury. 10-Not Attempted due to Environmental Limitations-(lack of equipment, weather restraints, etc.). 88-Not Attempted due to Medical Conditions or Safety Concerns. Weight Bearing Right Lower Extremity: Right Full Weight Bearing Left Lower Extremity: Left Weight Bearing/Tolerated PT Nursing Home Goals Fiberglass Bonding Machine Tender Goals PT Fiberglass Bonding Machine Tender Goals Time Frame: Jan 10, 2020 Roll Left & Right (QC): 3 Sit to Lying (QC): 3 Lying-Sitting on Side/Bed(QC): 3 Sit to Stand (QC): 3 Chair/Twz-zj-Catpn Xfer(QC): 3 Does the Patient Walk: No and Walking Goal IS indicated Walk 10 feet (QC): 3 PT Plan Treatment/Plan Treatment Plan: Continue Plan of Care Treatment Plan: Bed Mobility, Education, Functional Activity Marly, Functional Strength, Gait, Safety, Therapeutic Exercise, Transfers Treatment Duration: Jan 10, 2020 Frequency: 11 times per week Estimated Hrs Per Day: .5 hour per day Patient and/or Family Agrees t: Yes Time/GCodes Time In: 1025 Time Out: 1045 Total Billed Treatment Time: 20 Total Billed Treatment 1,RANJIT HERNANDEZ BRANCH STORE MANAGER Jan 07, 2020 11:46
--- NOTE | 2020-01-07 11:57 | NUR ---
REPORT CALLED TO COURTNEY, NURSE WHO WILL ASSUME CARE OF THIS PATIENT WHEN HE RETURNS TO [facility] LATER THIS AFTERNOON.
[2020-01-07] MEDS ORDERED: NS IV 1000 ML 1,000 ML IV SCH (12:00)
[2020-01-07 12:30] VITALS: BP 99/66
[2020-01-07 13:42] VITALS: BP 99/66
[2020-01-07 13:58] VITALS: BP 99/66
== END 2020-01-07 14:05 | DRG 470 ==
LOC: EDUNIT# 16:49 → ER 16:50 → 4TH 17:18
PROVIDERS: ADMIT Internal Medicine; ATTEND Internal Medicine
PROC: 0SRS01A Replacement of Left Hip Joint, Femoral Surface with Metal Synthetic Substitute, Uncemented, Open Approach (ICD-10-PCS; principal; 2020-01-03 07:51)
DX: S72.142A Displaced intertrochanteric fracture of left femur, initial encounter for closed fracture (principal); D62 Acute posthemorrhagic anemia; I69.321 Dysphasia following cerebral infarction; G93.89 Other specified disorders of brain; G40.909 Epilepsy, unspecified, not intractable, without status epilepticus; E78.00 Pure hypercholesterolemia, unspecified; K59.09 Other constipation; F32.9 Major depressive disorder, single episode, unspecified; Z66 Do not resuscitate; W19.XXXA Unspecified fall, initial encounter; Y92.129 Unspecified place in nursing home as the place of occurrence of the external cause
CPT/HCPCS: 36415; 51702; 70450; 71045; 72125; 73501; 80053; 81000; 83540; 85007; 85014; 85018; 85025; 85027; 85610; 86850; 86900; 86901; 86920; 87081; 87635; 94664; 94760; 96374

== ENCOUNTER 2020-04-03 20:32 | Observation (INO) | payer MEDICARE, MEDICAID ==
[~2020-04-03] VITALS: Ht 162 cm; Wt 64.5 kg
[~2020-04-03 20:32] MED LIST: ACET325C7 PO; ACET325T38 PO; ASPI-1238 PO; CITA20TA12 PO; DOCU100T2 PO; ENOX40DI8 SC; HYDR-34 PO; ONDA4TAB11 PO; ONDN4T PO; PHEN26CR2 RC; POLY17PO6 PO; SNN187T PO; TOPI50TA13 PO; VALP250S3 PO; VALP250S4 PO; [UNRECOGNIZED DRUG - CODE] IV; [UNRECOGNIZED DRUG - CODE] MC
--- NOTE | 2020-04-03 20:57 | ED General ---
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 He vomited once after the choking episode. Cough is intermittent. No recent illness or fever. Allergies and Home Medications Allergies Coded Allergies: metformin (Verified Allergy, Unknown, 01/02/20) Home Medications Acetaminophen 325 Mg Capsule, 650 MG PO Q6H PRN for PAIN-MILD (1-4) OR TEMPATURE, (Reported) Aspirin 81 Mg Tablet.dr, 81 MG PO DAILY, (Reported) Citalopram Hydrobromide 20 Mg Tablet, 20 MG PO DAILY, (Reported) Docusate Sodium 100 Mg Tablet, 100 MG PO BID, (Reported) Enoxaparin Sodium 40 Mg/0.4 Ml Syringe, 40 MG SC Q24H Prescribed by: BERENICE NGO on 01/07/20 1100 Hydrocodone Bit/Acetaminophen 1 Ea Tablet, 1 EA PO Q2HR PRN for PAIN-MODERATE (5-7) Prescribed by: BERENICE NGO on 01/07/20 1100 Ondansetron 4 Mg Tab.rapdis, 4 MG PO Q6H PRN for NAUSEA/VOMITING-1ST LINE, (Repo rted) Phenyleph/Pramoxin/Glycr/W.pet 26 Gm Cream..g., 1 APPFUL RC QID PRN for HEMMORRHOID DISCOMFORT, (Reported) Polyethylene Glycol 3350 17 Gm Powd.pack, 17 GM PO Q48H, (Reported) Sennosides 8.6 Mg Tablet, 8.6 MG PO BID Prescribed by: BERENICE NGO on 01/07/20 1100 Topiramate 50 Mg Tablet, 50 MG PO DAILY, (Reported) Valproic Acid (As Sodium Salt) 250 Mg/5 Ml Solution, 10 ML PO HS, (Reported) Valproic Acid (As Sodium Salt) 250 Mg/5 Ml Solution, 5 ML PO DAILY, (Reported) Patient Home Medication List Home Medication List Reviewed: Yes Review of Systems Review of Systems Constitutional: no symptoms reported (otherwise, pt does not give his own Hx 2 to Mental Impairment); No chills, No fever EENTM: no symptoms reported Respiratory: cough; No hemoptysis, No short of breath, No stridor, No wheezing Cardiovascular: No edema, No syncope Gastrointestinal: vomiting (x1) Past Tgyxwvq-Ndyfkr-Fxthfo Hx Past Med/Social Hx: Reviewed Nursing Past Med/Soc Hx Patient Social History Recent Foreign Travel: No Contact w/Someone Who Travel: No Recent Hopitalizations: No Seasonal Allergies Seasonal Allergies: No Past Medical History Respiratory: No Cardiac: Yes High Cholesterol Neurological: Yes Seizure Disorder, Stroke, TIA Genitourinary: No Gastrointestinal: Yes Chronic Constipation Musculoskeletal: No Endocrine: No HEENT: No Cancer: No Psychosocial: Yes Depression Integumentary: No Physical Exam Vital Signs Vital Signs - First Documented 04/03/20 20:35 Temp 37.4 Pulse 130 Resp 18 B/P (MAP) 131/85 (100) Pulse Ox 94 O2 Delivery Room Air Capillary Refill : Height, Weight, BMI Height: '" Weight: lbs. oz. kg; 21.90 BMI Method: General Appearance: No Apparent Distress, WD/WN HEENT: PERRL/EOMI, Normal ENT Inspection Neck: Normal Inspection, Non Tender, Supple Respiratory: Chest Non Tender, Lungs Clear, Normal Breath Sounds, No Accessory Muscle Use, No Respiratory Distress, Other (persistent cough) Cardiovascular: No Edema, No Gallop, No JVD, Tachycardia (130's) Gastrointestinal: Non Tender, Soft Back: No CVA Tenderness, No Vertebral Tenderness Extremity: Non Tender, No Calf Tenderness Neurologic/Psychiatric: Alert; No Motor Weakness Skin: Normal Color, Warm/Dry Progress/Results/Core Measures Suspected Sepsis SIRS Temperature: Pulse: Respiratory Rate: Laboratory Tests 04/03/20 21:10: White Blood Count 19.3H Blood Pressure / Mean: Laboratory Tests 04/03/20 21:10: Creatinine 1.07, Platelet Count 323, Total Bilirubin 0.2 Results/Orders Lab Results Laboratory Tests Test 04/03/20 21:10 04/04/20 00:20 Range/Units White Blood Count 19.3 H 4.3-11.0 10^3/uL Red Blood Count 4.51 4.35-5.85 10^6/uL Hemoglobin 13.5 13.3-17.7 G/DL Hematocrit 42 40-54 % Mean Corpuscular Volume 94 80-99 FL Mean Corpuscular Hemoglobin 30 25-34 PG Mean Corpuscular Hemoglobin Concent 32 32-36 G/DL Red Cell Distribution Width 14.0 10.0-14.5 % Platelet Count 323 130-400 10^3/uL Mean Platelet Volume 10.7 H 7.4-10.4 FL Immature Granulocyte % (Auto) 2.2 Neutrophils (%) (Auto) 58 42-75 % Lymphocytes (%) (Auto) 26 12-44 % Monocytes (%) (Auto) 12 0-12 % Eosinophils (%) (Auto) 1 0-10 % Basophils (%) (Auto) 1 0-10 % Neutrophils # (Auto) 11.3 H 1.8-7.8 X 10^3 Lymphocytes # (Auto) 5.0 H 1.0-4.0 X 10^3 Monocytes # (Auto) 2.3 H 0.0-1.0 X 10^3 Eosinophils # (Auto) 0.1 0.0-0.3 10^3/uL Basophils # (Auto) 0.1 0.0-0.1 10^3/uL Immature Granulocyte # (Auto) 0.4 H 0.0-0.1 Neutrophils % (Manual) 71 % Lymphocytes % (Manual) 26 % Monocytes % (Manual) 2 % Eosinophils % (Manual) 1 % Toxic Granulation 4+ Percent Immature Platelet Fraction 2.4 0.0-7.6 Polychromasia MODERATE D-Dimer 6.56 H 0.00-0.49 UG/ML Sodium Level 144 135-145 MMOL/L Potassium Level 4.5 3.6-5.0 MMOL/L Chloride Level 106 98-107 MMOL/L Carbon Dioxide Level 20 L 21-32 MMOL/L Anion Gap 18 H 5-14 MMOL/L Blood Urea Nitrogen 29 H 7-18 MG/DL Creatinine 1.07 0.60-1.30 MG/DL Estimat Glomerular Filtration Rate > 60 BUN/Creatinine Ratio 27 Glucose Level 149 H 70-105 MG/DL Calcium Level 10.1 8.5-10.1 MG/DL Corrected Calcium 10.3 H 8.5-10.1 MG/DL Total Bilirubin 0.2 0.1-1.0 MG/DL Aspartate Amino Transf (AST/SGOT) 17 5-34 U/L Alanine Aminotransferase (ALT/SGPT) 11 0-55 U/L Alkaline Phosphatase 134 40-136 U/L Total Protein 8.1 6.4-8.2 GM/DL Albumin 3.7 3.2-4.5 GM/DL Urine Color STRAW Urine Clarity SLIGHTLY CLOUDY Urine pH 7.5 5-9 Urine Specific [place] 1.010 L 1.016-1.022 Urine Protein NEGATIVE NEGATIVE Urine Glucose (UA) NEGATIVE NEGATIVE Urine Ketones NEGATIVE NEGATIVE Urine Nitrite NEGATIVE NEGATIVE Urine Bilirubin NEGATIVE NEGATIVE Urine Urobilinogen 0.2 < = 1.0 MG/DL Urine Leukocyte Esterase NEGATIVE NEGATIVE Urine RBC (Auto) TRACE-I NEGATIVE Urine RBC NONE /HPF Urine WBC 10-25 H /HPF Urine Squamous Epithelial Cells NONE /HPF Urine Crystals PRESENT H /LPF Urine Amorphous Sediment LARGE SONIA PHOSPHATE H /LPF Urine Bacteria TRACE /HPF Urine Casts PRESENT /LPF Urine Hyaline Casts 2-5 H /LPF Urine Mucus LARGE H /LPF Urine Culture Indicated YES My Orders Orders - MARGE MALHOTRA DO Ed Iv/Invasive Line Start (04/03/20 20:55) Chest 1 View Ap/Pa Only (04/03/20 20:55) Ekg Tracing (04/03/20 20:55) Cbc With Automated Diff (04/03/20 20:55) Comprehensive Metabolic Panel (04/03/20 20:55) Ns Iv 1000 Ml (Sodium Chloride 0.9%) (04/03/20 21:15) Lorazepam Injection (Ativan Injection) (04/03/20 21:15) Manual Differential (04/03/20 21:10) Fibrin Degradation Products (04/03/20 21:36) Lactated Ringers (Lr 1000 Ml Iv Solution (04/03/20 22:00) Ct Angio Chest W (04/03/20 22:15) Iohexol Injection (Omnipaque 350 Mg/Ml 1 (04/03/20 22:45) Received Contrast (Hold Metformin- Contr (04/03/20 22:45) Sodium Chloride Flush (Catheter Flush Sy (04/03/20 22:45) Ns (Ivpb) (Sodium Chloride 0.9% Ivpb Bag (04/03/20 22:45) Ct Abdomen/Pelvis Wo (04/03/20 23:57) Urinalysis (04/03/20 23:58) Ketorolac Injection (Toradol Injection) (04/04/20 00:30) Urine Culture (04/04/20 00:20) Ceftriaxone For Iv Use (Rocephin For I (04/04/20 00:45) Medications Given in ED Current Medications Medications Dose Ordered Sig/Apple Route Start Time Stop Time Status Last Admin Dose Admin Iohexol 125 ml ONCE ONCE IV 04/03/20 22:45 04/03/20 22:46 DC 04/03/20 22:59 125 ML Ketorolac Tromethamine 30 mg ONCE ONCE IVP 04/04/20 00:30 04/04/20 00:31 DC 04/04/20 00:33 30 MG Lorazepam 0.5 mg ONCE ONCE IVP 04/03/20 21:15 04/03/20 21:16 DC 04/03/20 21:17 0.5 MG Sodium Chloride 10 ml NEEDED PRN IV 04/03/20 22:45 04/03/20 23:00 10 ML Sodium Chloride 100 ml ONCE ONCE IV 04/03/20 22:45 04/03/20 22:46 DC 04/03/20 23:00 100 ML Vital Signs/I&O 04/03/20 20:35 Temp 37.4 Pulse 130 Resp 18 B/P (MAP) 131/85 (100) Pulse Ox 94 O2 Delivery Room Air 04/04/20 00:00 Intake Total 2000 ml Balance 2000 ml Capillary Refill : Progress Note : Progress Note Presentation of patient lead to suspicion of respiratory problem due to history of choking while eating then developing a cough which was present on arrival. Sinus tachycardia as well as elevated white count and elevated BUN/creatinine were noted. Patient given 2 L of normal saline with only a modest drop in his tachycardia, but still running in the 110's consistently. Patient nonverbal, but noted to still be coughing and possibly in pain rodrigo to the manner in which he is breathing. Elevated d-dimer, led to CT chest with contrast with no evidence of PE and no other abnormality noted other than the incidental left hydronephrosis. Now CT abd/ pelvis to eval for stone, UA pending. Diagnostic Imaging Diagonstic Imaging: Xray Plain Films/CT/US/NM/MRI: chest Comments Date of Exam:04/03/20 CHEST 1 VIEW AP/PA ONLY Indication: Cough Portable chest 8:59 PM Heart size and pulmonary vascularity are normal. Lungs are clear. There are no effusions or pneumothoraces. IMPRESSION: Negative chest Dictated by: Dictated on workstation # [id number] Dict: 04/03/202113 Trans: 04/03/202113 [id number] Interpreted by: HALIMA WATKINS MD Electronically signed by: HALIMA WATKINS MD 04/03/202113 Departure Communication (Admissions) Time/Spoke to Admitting Phy: 00:[address] Castanon who accepts for admission to [facility] @ 0042 Explained presentation as a resp cause- coughing developed following episode of choking after dinner. Sx persisting for 3 hours. On arrival tachycardic, labs support dehydration. Given 2 liters NS without signif change to HR. Checked D- dimer and signif elevated, did CT angio of chest and no evidence of a PE or other abnl.....however incidental notice of left kidney [place]. CT abd/ pelvis without con. reveals signif [place] and obstruction @ UPJ. Unable to visualize a stone due to preceding contrast study. Impression Primary Impression: Hydronephrosis due to obstruction of ureter Additional Impressions: Cough Leukocytosis Qualified Codes: D72.829 - Elevated white blood cell count, unspecified Sinus tachycardia Disposition: ADMITTED INPATIENT Admissions Decision to Admit Reason: Admit from ER (General) Time/Decision to Admit Time: 11:00 Departure-Patient Inst. Referrals: MICHAEL TENA MD (PCP/Family) Primary Care Physician MARGE MALHOTRA DO Apr 03, 2020 20:57
[2020-04-03] MEDS ORDERED: NS IV 1000 ML 1,000 ML IV SCH (21:15)
[2020-04-03] MEDS ORDERED: LORazepam INJ 2 MG/ML (ATIVAN) VIAL IVP ONE (21:15)
--- NOTE | 2020-04-03 21:15 | Diagnostic Imaging Report ---
Indication: Cough Portable chest 8:59 PM Heart size and pulmonary vascularity are normal. Lungs are clear. There are no effusions or pneumothoraces. IMPRESSION: Negative chest Dictated by: Dictated on workstation # [id number]
[2020-04-03 21:17] LABS: HEMATOCRIT 42 % (40-54); HEMOGLOBIN 13.5 G/DL (13.3-17.7); MEAN CORPUSCULAR HEMOGLOBIN 30 PG (25-34); MEAN CORPUSCULAR HGB CONC 32 G/DL (32-36); MEAN CORPUSCULAR VOLUME 94 FL (80-99); MEAN PLATELET VOLUME 10.7 FL (7.4-10.4); PLATELET COUNT 323 10^3/uL (130-400); WHITE BLOOD COUNT 19.3 10^3/uL (4.3-11.0)
[2020-04-03 21:18] LABS: BASOPHILS # (AUTO) 0.1 10^3/uL (0.0-0.1); BASOPHILS % (AUTO) 1 % (0-10); EOSINOPHILS # (AUTO) 0.1 10^3/uL (0.0-0.3); EOSINOPHILS % (AUTO) 1 % (0-10); LYMPHOCYTES % (AUTO) 26 % (12-44); MONOCYTES # (AUTO) 2.3 X 10^3 (0.0-1.0); MONOCYTES % (AUTO) 12 % (0-12); NEUTROPHILS # (AUTO) 11.3 X 10^3 (1.8-7.8); NEUTROPHILS % (AUTO) 58 % (42-75)
[2020-04-03 21:36] LABS: ALANINE AMINOTRANSFERASE 11 U/L (0-55); ALBUMIN 3.7 GM/DL (3.2-4.5); ALKALINE PHOSPHATASE 134 U/L (40-136); BILIRUBIN,TOTAL 0.2 MG/DL (0.1-1.0); BUN/CREATININE RATIO 27; CALCIUM 10.1 MG/DL (8.5-10.1); CARBON DIOXIDE 20 MMOL/L (21-32); CHLORIDE 106 MMOL/L (98-107); CREATININE SERUM 1.07 MG/DL (0.60-1.30); GFR ESTIMATED > 60; GLUCOSE 149 MG/DL (70-105); POTASSIUM 4.5 MMOL/L (3.6-5.0); SODIUM 144 MMOL/L (135-145); TOTAL PROTEIN 8.1 GM/DL (6.4-8.2)
[2020-04-03] MEDS ORDERED: LACTATED RINGERS 1,000 ML IV SCH (22:00)
[2020-04-03 22:22] LABS: NEUTROPHILS % (MANUAL) 71 %
[2020-04-03 22:23] LABS: EOSINOPHILS % (MANUAL) 1 %; LYMPHOCYTES % (MANUAL) 26 %; MONOCYTES % (MANUAL) 2 %; POLYCHROMASIA MODERATE; TOXIC GRANULATION/VACUOLAZATIO 4+
[2020-04-03] MEDS ORDERED: HOLD METFORMIN - RECEIVED CONTRAST 20 ML VIAL IV SCH (22:45)
[2020-04-03] MEDS ORDERED: IOHEXOL 350 MG/ML 150 ML (OMNIPAQUE 350) VIAL IV ONE (22:45)
[2020-04-03] MEDS ORDERED: CATHETER FLUSH 10 ML SYR IV PRN (22:45)
[2020-04-03] MEDS ORDERED: NS 100 ML (IVPB) BAG IV ONE (22:45)
[2020-04-04 00:25] LABS: CLARITY,URINE SLIGHTLY CLOUDY; COLOR,URINE STRAW
[2020-04-04 00:30] LABS: BILIRUBIN,URINE NEGATIVE (NEGATIVE); GLUCOSE, URINE (UA) NEGATIVE (NEGATIVE); KETONES,URINE NEGATIVE (NEGATIVE); NITRITE,URINE NEGATIVE (NEGATIVE); PH,URINE 7.5 (5-9); PROTEIN,URINE NEGATIVE (NEGATIVE)
[2020-04-04] MEDS ORDERED: KETOROLAC 30 MG/ML VIAL IVP ONE (00:30)
[2020-04-04 00:31] LABS: AMORPHOUS SEDIMENT,UR LARGE AMOR PHOSPHATE /LPF; BACTERIA,URINE TRACE /HPF; LEUKOCYTE ESTERASE ,URINE NEGATIVE (NEGATIVE)
[2020-04-04] MEDS ORDERED: cefTRIAXone FOR IV USE 1,000 MG in WATER (STERILE) FOR INJECTION 10 ML IV ONE (00:45)
--- NOTE | 2020-04-04 02:00 | NUR ---
RECEIVED TELEPHONE REPORT FROM LAUREN DIALLO AT [facility].
[2020-04-04 03:10] VITALS: BP 97/64
--- NOTE | 2020-04-04 03:10 | NUR ---
MANDEEP GRAHAM admitted to room 423-1, with an admitting diagnosis of LEFT HYDRONEPHROSIS, LEUKOCYTOSIS, AND SINUS TACHYCARDIA , on 04/04/20 from [facility] ED via [facility], accompanied by EMS. MANDEEP GRAHAM introduced to surroundings, call light, bed controls, phone, TV, temperature control, lights, meal times, smoking policy, visitor policy, side rail policy, bathrooms and showers. Patient Rights given to patient in the handbook. MANDEEP GRAHAM verbalizes understanding that [facility] is not responsible for the loss or damage to any personal effects or valuables that are kept in the patients posession during their hospitalization.
[2020-04-04] MEDS ORDERED: NS IV 1000 ML 1,000 ML ONE (03:36)
[2020-04-04] MEDS ORDERED: KETOROLAC 30 MG/ML VIAL IV PRN (04:00)
[2020-04-04] MEDS: NS IV 1000 ML 1,000 ML IV SCH ×4 (04:04→23:58)
--- NOTE | 2020-04-04 04:30 | NUR ---
PT'S HOME MEDICATIONS REVIEWED AT THIS TIME VIA [facility]FW[facility]'S TRANSFER SHEET BY THIS RN.
[2020-04-04 05:18] LABS: BASOPHILS # (AUTO) 0.1 10^3/uL (0.0-0.1); BASOPHILS % (AUTO) 0 % (0-10); EOSINOPHILS # (AUTO) 0.1 10^3/uL (0.0-0.3); EOSINOPHILS % (AUTO) 1 % (0-10); HEMATOCRIT 33 % (40-54); HEMOGLOBIN 10.5 G/DL (13.3-17.7); LYMPHOCYTES # (AUTO) 3.6 X 10^3 (1.0-4.0); LYMPHOCYTES % (AUTO) 32 % (12-44); MEAN CORPUSCULAR HEMOGLOBIN 30 PG (25-34); MEAN CORPUSCULAR HGB CONC 32 G/DL (32-36); MEAN CORPUSCULAR VOLUME 93 FL (80-99); MEAN PLATELET VOLUME 10.9 FL (7.4-10.4); MONOCYTES # (AUTO) 1.6 X 10^3 (0.0-1.0); MONOCYTES % (AUTO) 14 % (0-12); NEUTROPHILS % (AUTO) 53 % (42-75); PLATELET COUNT 208 10^3/uL (130-400); WHITE BLOOD COUNT 11.2 10^3/uL (4.3-11.0)
[2020-04-04 05:36] LABS: ALBUMIN 2.8 GM/DL (3.2-4.5)
[2020-04-04 05:37] LABS: CHLORIDE 113 MMOL/L (98-107); POTASSIUM 4.2 MMOL/L (3.6-5.0); SODIUM 142 MMOL/L (135-145)
[2020-04-04 05:38] LABS: CALCIUM 8.1 MG/DL (8.5-10.1)
[2020-04-04 05:39] LABS: GLUCOSE 82 MG/DL (70-105); TOTAL PROTEIN 5.9 GM/DL (6.4-8.2)
[2020-04-04 05:40] LABS: CARBON DIOXIDE 20 MMOL/L (21-32)
[2020-04-04 05:41] LABS: BILIRUBIN,TOTAL 0.2 MG/DL (0.1-1.0)
[2020-04-04 05:42] LABS: ALKALINE PHOSPHATASE 86 U/L (40-136)
[2020-04-04 05:43] LABS: CREATININE SERUM 0.91 MG/DL (0.60-1.30); GFR ESTIMATED > 60
[2020-04-04 05:44] LABS: BUN/CREATININE RATIO 26
[2020-04-04 05:45] LABS: ALANINE AMINOTRANSFERASE 8 U/L (0-55)
--- NOTE | 2020-04-04 07:32 | Diagnostic Imaging Report ---
PROCEDURE: CT angiography of the chest with contrast. TECHNIQUE: Multiple contiguous axial images were obtained through the chest after uneventful bolus administration of intravenous contrast. 3D reconstructed CTA MIP acquisitions were also performed. Auto Exposure Controls were utilized during the CT exam to meet ALARA standards for radiation dose reduction. INDICATION: Persistent cough with sinus tachycardia and elevated d-dimer. No prior studies are available for comparison. Central and lobar pulmonary arteries appear to be widely patent without evidence of filling defect. Segmental and subsegmental pulmonary arteries are somewhat limited due to motion artifact. Thoracic aorta is normal in caliber. No dissection is identified. There is no pericardial or pleural fluid. No pulmonary infiltrates, nodules or masses are seen. Upper abdomen does show significant hydronephrosis of the left kidney. No other abnormalities are seen. IMPRESSION: 1. No evidence of central pulmonary emboli or aortic dissection. No acute feature in the chest is identified. 2. Left-sided hydronephrosis. Dedicated CT abdomen and pelvis could be performed for further evaluation. Dictated by: Dictated on workstation # [id number]
--- NOTE | 2020-04-04 07:41 | Diagnostic Imaging Report ---
PROCEDURE: CT abdomen and pelvis without contrast. TECHNIQUE: Multiple contiguous axial images were obtained through the abdomen and pelvis without the use of intravenous contrast. Auto Exposure Controls were utilized during the CT exam to meet ALARA standards for radiation dose reduction. INDICATION: Hydronephrosis. Correlation is made with CT chest performed earlier same evening. The liver and gallbladder are unremarkable. Pancreas and spleen are unremarkable. There is no adrenal mass. Right kidney is unremarkable. There is significant dilatation of left renal collecting system and renal pelvis. There is abrupt transition to normal caliber ureter just beyond the UPJ. Aorta is non-aneurysmal. Bowel loops are normal caliber. There is no ascites. There is a large amount of artifact through the pelvis from left hip prosthesis. Evaluation of bony structures does show significant compression fracture deformity involving L3 vertebral body. There is also some central compression involving L2, less severe. Age of these are indeterminate. No definite paraspinous hematoma is identified. IMPRESSION: Significant left-sided hydronephrosis and renal pelvic dilatation with abrupt transition at the UPJ. Findings are consistent with UPJ obstruction, chronicity indeterminate. No definite obstructing calculus is detected however this could be obscured due to dense contrast. Lumbar compression fractures, age indeterminate. MRI would be useful for further evaluation to evaluate acuity, if clinically indicated. Dictated by: Dictated on workstation # [id number]
[2020-04-04 08:14] VITALS: BP 150/77
[2020-04-04] MEDS ORDERED: FLU QUAD HIGH DOSE 240 MCG/0.7 ML 2020-21 (FLUZONE) IM ONE (09:45)
[2020-04-04 11:29] VITALS: BP 142/70
--- NOTE | 2020-04-04 12:41 | History & Physical-Hospitalist ---
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 He vomited once after the choking episode. Cough is intermittent. No recent illness or fever. Upon my evaluation this morning he did not appear to be in acute distress noncommunicative reportedly at baseline according to his mother at the bedside. He had not been coughing and did not appear to be in pain according to his mother. Unable to obtain history from the patient. Date Seen 04/04/20 Time Seen by a Provider: 07:30 Attending Physician Ifeoma Yung MD PCP Scottie José MD Referring Physician Date of Admission Apr 04, 2020 at 03:05 Home Medications & Allergies Home Medications Reviewed patient Home Medication Reconciliation performed by pharmacy medication reconciliations auto glass technician and/or nursing. Patients Allergies have been reviewed. Allergies Allergies Coded Allergies metformin (Verified Allergy, Unknown, 01/02/20) Past Hprrtuw-Yunbjz-Luzzna Hx Past Med/Social Hx: Reviewed Nursing Past Med/Soc Hx, Reviewed and Corrections made Patient Social History Alcohol Use: Denies Use Recreational Drug Use: No 2nd Hand Smoke Exposure: No Recent Foreign Travel: No Contact w/other who traveled: No Recent Hopitalizations: No Recent Infectious Disease Expo: No Immunizations Up To Date Date of Influenza Vaccine: Apr 04, 2019 Seasonal Allergies Seasonal Allergies: No Past Medical History Surgeries: Orthopedic Cardiac: High Cholesterol Neurological: Seizure Disorder, Stroke, TIA Gastrointestinal: Chronic Constipation Psychosocial: Depression Review of Systems Constitutional: see HPI Physical Exam Physical Exam Vital Signs Vital Signs - First Documented 04/03/20 04/04/20 20:35 02:15 Temp 37.4 Pulse 130 Resp 18 B/P (MAP) 131/85 (100) Pulse Ox 94 O2 Delivery Room Air O2 Flow Rate 2.00 Capillary Refill : Less Than 3 Seconds Height, Weight, BMI Height: '" Weight: lbs. oz. kg; 24.00 BMI Method: General Appearance: No Apparent Distress Respiratory: Chest Non Tender, Lungs Clear, Normal Breath Sounds, No Accessory Muscle Use, No Respiratory Distress Cardiovascular: Regular Rate, Rhythm, No Edema, No Gallop, No JVD, No Murmur, Normal Peripheral Pulses Gastrointestinal: Normal Bowel Sounds, No Organomegaly, No Pulsatile Mass, Non Tender, Soft Extremity: Normal Capillary Refill, Normal Inspection, Normal Range of Motion, Non Tender, No Calf Tenderness, No Pedal Edema Results Results/Procedures Labs Laboratory Tests 04/03/20 21:10 04/04/20 05:11 Patient resulted labs reviewed. Assessment/Plan Admission Diagnosis 1. Left sided hydronephrosis with history of kidney stones need to rule out left UPJ obstruction urology consulted. 2. Suspect aspiration without evidence for pneumonitis. Currently chest clear. We will monitor the patient during the initiation of a mechanical soft diet if evidence for any difficulty swallowing will need to hold diet and consult speech. Admission Status: Inpatient Order (span 2 midnights) Reason for Inpatient Admission: see admission diagnosis Clinical Quality Measures DVT/VTE Risk/Contraindication: Risk Factor Score Per Nursin RFS Level Per Nursing on Admit: 4+=Very High IFEOMA YUNG MD Apr 04, 2020 12:41
[2020-04-04] MEDS: ENOXAPARIN 40 MG/0.4 ML (LOVENOX) SYR SC SCH (13:08)
--- NOTE | 2020-04-04 14:58 | NUR ---
DR ACEVEDO HERE, PATIENT INCONT LARGE AMOUNT URINE, BLADDER SCAN SHOWED 135 ML URINE
[2020-04-04 15:35] VITALS: BP 100/60
[2020-04-04] MEDS ORDERED: TAMSULOSIN 0.4 MG (FLOMAX) CAP PO SCH (18:00)
--- NOTE | 2020-04-04 18:10 | CONSULTATION REPORT ---
DATE OF SERVICE: 04/04/2020 ATTENDING PHYSICIAN: Dr. Castanon. SUMMARY: After reviewing the patient's records and interviewing him and mostly his , this is a 64-year-old white man, [facility] patient admitted with cough and choking and vomiting. His CT chest was negative. His white count was 19,000 and today is 11. His kidney functions are normal. His D-dimer was high, but the CT chest was negative. A CT chest and confirmed by CT abdomen and pelvis revealed a chronic left UPJ obstruction; however, there was good drainage of the ureter could see the contrast in it from the one used for the CT chest and the patient left kidney has what looks to me a good cortex and as I said his kidney functions were normal. The patient also according to his has been suffering from incontinence and necessitating several diaper changes. He seems to be emptying well his bladder as his diapers are pretty soaked. We did a post-void residual after a good soaked diaper, it was only 135 mL. IMPRESSION: 1. Left ureteropelvic junction obstruction, chronic, not significant with normal kidney function. 2. Wet overactive bladder with some BPH and mild retention. PLAN: 1. For now, we will watch his UPJ later on we will do some workup if needed. 2. Wet overactive bladder and BPH. We will recheck again his postvoid residual scan sometime tomorrow and if it remains under 200, we may start him on some anticholinergics. The plan was fully explained to the patient and his . Job ID: [id number] DocumentID: [id number] Dictated Date: 04/04/2020 15:01:57 Private Investigator Date: 04/04/2020 18:09:22 Dictated By: VISHNU ACEVEDO MD
[2020-04-04 19:50] VITALS: BP 104/65
[2020-04-04] MEDS ORDERED: cefTRIAXone 1,000 MG/SWFI 10 ML IV PUSH IV SCH ×2 (21:00)
[2020-04-05 00:10] VITALS: BP 105/58
[2020-04-05 04:38] VITALS: BP 111/68
[2020-04-05] MEDS: NS IV 1000 ML 1,000 ML IV SCH (06:40)
[2020-04-05 08:00] VITALS: BP 122/70
[2020-04-05] MEDS: ENOXAPARIN 40 MG/0.4 ML (LOVENOX) SYR SC SCH (10:13)
[2020-04-05] MEDS ORDERED: TMSL.4C PO (11:03)
[2020-04-05] MEDS ORDERED: TOLTA4 PO (11:03)
--- NOTE | 2020-04-05 11:10 | Discharge Summary ---
Discharge Summary Hospital Course Hospital Course Date of Admission: Apr 04, 2020 at 03:05 Admission Diagnosis : Aspiration Suspected left UPJ obstruction with hydronephrosis Seizure disorder history of CVA Family Physician/Provider: Michael José MD Date of Discharge: 04/05/20 Discharge Diagnosis: Aspiration without pneumonitis or pneumonia Suspected left UPJ obstruction with hydronephrosis- chronicity unclear, no acute intervention Overactive bladder BPH Seizure disorder history of CVA Hospital Course: 64 yo male admitted after choking/coughing episode at [place] and concern for aspiration. He showed no signs of pneumonia, no hypoxia, normal chest x-ray and bedside nursing did not note concern with swallowing. He did have a high WBC which came down significantly on second day. He had high D-dimer and CTA chest was done which showed no PE, but hydronephrosis noted, which was followed by abdominal CT which showed possible UPJ obstruction but no clear stone. Dr. Ribera was consulted and did not feel any intervention for the UPJ needed at this time, and did not want any aggressive treatments regardless. He was started on flomax, but also on tolterodine per Dr. Ribera for overactive bladder/BPH. Labs and Pending Lab Test: Home Meds Active HYDROcodone/APAP 7.5/325 TAB (Acetaminophen/Hydrocodone Bitart) 1 Ea Tablet 1 Ea PO Q2HR PRN Reported Ondansetron Odt (Ondansetron) 4 Mg Tab.rapdis 4 Mg PO Q6H PRN Aspirin EC (Aspirin) 81 Mg Tablet.dr 81 Mg PO DAILY Valproic Acid (Valproic Acid (As Sodium Salt)) 250 Mg/5 Ml Solution 5 Ml PO DAILY Miralax (Polyethylene Glycol 3350) 17 Gm Powd.pack 17 Gm PO Q48H Valproic Acid (Valproic Acid (As Sodium Salt)) 250 Mg/5 Ml Solution 10 Ml PO HS Tylenol (Acetaminophen) 325 Mg Capsule 650 Mg PO Q6H PRN Topiramate 50 Mg Tablet 50 Mg PO DAILY Preparation H Cream (Phenyleph/Pramoxin/Glycr/W.pet) 26 Gm Cream..g. 1 Appful RC QID PRN Docusate Sodium 100 Mg Tablet 100 Mg PO BID Celexa (Citalopram Hydrobromide) 20 Mg Tablet 20 Mg PO DAILY Assessment/Pt DC Instructions See above Discharge Diet: Cardiac Diet Activity as Tolerated: Yes Discharge Physical Examination Allergies: Coded Allergies: metformin (Verified Allergy, Unknown, 01/02/20) General Appearance: No Apparent Distress Respiratory: Lungs Clear, Normal Breath Sounds Cardiovascular: Regular Rate, Rhythm, No Murmur Gastrointestinal: Normal Bowel Sounds, Non Tender, Soft Extremity: No Pedal Edema Skin: Normal Color, Warm/Dry Neurologic/Psychiatric: Alert, Other ( provides history, patient answers some yes/no questions) Copy Copies To 1: MICHAEL JOSÉ MD Clinical Quality Measures DVT/VTE Risk/Contraindication: Risk Factor Score Per Nursin RFS Level Per Nursing on Admit: 4+=Very High BRENDON KELLEY MD Apr 05, 2020 11:08
--- NOTE | 2020-04-05 13:26 | NUR ---
MED REC COULDN'T BE COMPLETED BEFORE THE PATIENT WAS DISCHARGED. MED LIST FROM FACILITY IS ON FILE.
--- NOTE | 2020-04-05 14:03 | NUR ---
RD ASSESSMENT PMHx: hypercholesterolemia; seizure; disorder; TIA; stroke; chronic constipation PT INTERACTION: Pt was awake and pleasant during nutrition assessment. Note pt is a poor historian, per chart review. Note pt had family present at bedside. Pt states current intake is "iffy". Note avg PO intake 25% x2meal, per chart review. Family states pt follow a "ground up" diet at home, and has some issues with swallowing food. Pt states recent issues with nausea and vomiting. Note last BM was 04/04, and pt not currently on bowel regimen per chart review. Pt states no recent wt changes. Note recent 3# wt gain x3mon, per chart review. ABNORMAL NUTRITION-RELATED LAB VALUES LOW: Ca 8.1; Pro 5.9; alb 2.8 HIGH: Cl 113; BUN 24 Est. kcal needs: 1600 kcal | 25 kcal/kg Est. Pro needs: 77 g Pro | 1.2 g Pro/kg PES STATEMENT: Inadequate oral intake (NI-2.1) related to loss of appetite | nausea | vomiting as evidenced by pt interview | avg PO intake 25% x2meal INTERVENTION: Continue with current diet order of DYS2 Mechanically Altered diet. Add Ensure Enlive (vary) to meals TID, for increase kcal intake. Provides 350 kcal and 13 g Pro per serving. Will continue to follow and reassess as pt needs, intake, and status change. MONITOR/EVALUATE: PO Intake; Plan of Care; Hydration Status; Weight Status; Lab Values David Rodriguez, MS, RD, LD
[2020-04-06] MEDS ORDERED: TOLTERODINE LA 4 MG (DETROL) CAP PO ONE (09:00)
== END 2020-04-05 13:30 ==
LOC: EDUNIT# 20:32 → ER FS 20:35 → 4TH 04-04 03:05
PROVIDERS: ADMIT Internal Medicine; ATTEND Family Medicine
DX: N13.1 Hydronephrosis with ureteral stricture, not elsewhere classified (principal); E78.00 Pure hypercholesterolemia, unspecified; F32.9 Major depressive disorder, single episode, unspecified; D72.829 Elevated white blood cell count, unspecified; R05 Cough; R00.0 Tachycardia, unspecified; N32.81 Overactive bladder; N40.0 Benign prostatic hyperplasia without lower urinary tract symptoms; R56.9 Unspecified convulsions; Z79.82 Long term (current) use of aspirin; Z79.899 Other long term (current) drug therapy; Z88.8 Allergy status to other drugs, medicaments and biological substances; Z86.73 Personal history of transient ischemic attack (TIA), and cerebral infarction without residual deficits
CPT/HCPCS: 36415; 71045; 71275; 74176; 80053; 81000; 85007; 85025; 85027; 85379; 87088; 93005

== ENCOUNTER 2020-04-10 20:24 | Emergency (ER) | payer MEDICARE, MEDICAID ==
[~2020-04-10] VITALS: Ht 175.6 cm; Wt 63.3 kg
[~2020-04-10 20:24] MED LIST changes: +TMSL.4C PO; +TOLTA4 PO
--- NOTE | 2020-04-10 20:36 | ED Lower Extremity ---
General Chief Complaint: Lower Extremity Stated Complaint: HIP PAIN/FELL AT HOME Source: patient, EMS History of Present Illness Date Seen by Provider: Apr 10, 2020 Time Seen by Provider: 20:35 Initial Comments 64-year-old male presents with left hip pain. Patient was at home is walk in and tripped and fell. There is no reports of any other injury. Patient complains of pain in his left hip. Pain is worse with movement. Patient provides little further history of present illness. Allergies and Home Medications Allergies Coded Allergies: metformin (Verified Allergy, Unknown, 01/02/20) Home Medications Acetaminophen 325 Mg Capsule, 650 MG PO Q6H PRN for PAIN-MILD (1-4) OR TEMPATURE, (Reported) Aspirin 81 Mg Tablet.dr, 81 MG PO DAILY, (Reported) Citalopram Hydrobromide 20 Mg Tablet, 20 MG PO DAILY, (Reported) Docusate Sodium 100 Mg Tablet, 100 MG PO BID, (Reported) Hydrocodone Bit/Acetaminophen 1 Ea Tablet, 1 EA PO Q2HR PRN for PAIN-MODERATE (5-7) Prescribed by: BERENICE NGO on 01/07/20 1100 Ondansetron 4 Mg Tab.rapdis, 4 MG PO Q6H PRN for NAUSEA/VOMITING-1ST LINE, (Reported) Phenyleph/Pramoxin/Glycr/W.pet 26 Gm Cream..g., 1 APPFUL RC QID PRN for HEMMORRHOID DISCOMFORT, (Reported) Polyethylene Glycol 3350 17 Gm Powd.pack, 17 GM PO Q48H, (Reported) Tamsulosin HCl 0.4 Mg Cap, 0.4 MG PO DAILY@1800 Prescribed by: BRENDON KELLEY on 04/05/20 1103 Tolterodine Tartrate 4 Mg Cap, 4 MG PO DAILY Prescribed by: BRENDON KELLEY on 04/05/20 1103 Topiramate 50 Mg Tablet, 50 MG PO DAILY, (Reported) Valproic Acid (As Sodium Salt) 250 Mg/5 Ml Solution, 10 ML PO HS, (Reported) Valproic Acid (As Sodium Salt) 250 Mg/5 Ml Solution, 5 ML PO DAILY, (Reported) Patient Home Medication List Home Medication List Reviewed: Yes Review of Systems Constitutional: No chills, No fever EENTM: no symptoms reported Respiratory: no symptoms reported Cardiovascular: no symptoms reported Gastrointestinal: no symptoms reported Genitourinary: no symptoms reported Musculoskeletal: see HPI Skin: no symptoms reported Psychiatric/Neurological: No Symptoms Reported Past Mtjcgnt-Hpqdhz-Vvpdol Hx Past Med/Social Hx: Reviewed Nursing Past Med/Soc Hx Patient Social History 2nd Hand Smoke Exposure: No Recent Foreign Travel: No Contact w/Someone Who Travel: No Recent Hopitalizations: No Immunizations Up To Date Date of Influenza Vaccine: Apr 04, 2019 Seasonal Allergies Seasonal Allergies: No Past Medical History Surgeries: Yes Orthopedic Respiratory: No Cardiac: Yes High Cholesterol Neurological: Yes Seizure Disorder, Stroke, TIA Genitourinary: No Gastrointestinal: Yes Chronic Constipation Musculoskeletal: No Endocrine: No HEENT: No Cancer: No Psychosocial: Yes Depression Integumentary: No Physical Exam Vital Signs Vital Signs - First Documented 04/10/20 20:38 Temp 36.8 Pulse 109 Resp 16 B/P (MAP) 117/64 (81) Pulse Ox 95 O2 Delivery Room Air Capillary Refill : Height, Weight, BMI Height: '" Weight: lbs. oz. kg; 24.00 BMI Method: General Appearance: no apparent distress Neck: full range of motion, supple Cardiovascular: normal peripheral pulses, regular rate, rhythm Respiratory: lungs clear, normal breath sounds, no respiratory distress Gastrointestinal: non tender, soft Hips: right hip non-tender, right hip normal inspection, right hip normal range of motion, right hip no evidence of injury; left hip limited range of motion, left hip soft tissue tenderness Legs: bilateral leg non-tender Knees: bilateral knee non-tender Ankles: bilateral ankle non-tender Neurologic/Psychiatric: no motor/sensory deficits, alert Skin: normal color, warm/dry Progress/Results/Core Measures Results/Orders My Orders Orders - [facility] JACKSON DO Hip 2-3 View Left (04/10/20 20:33) Vital Signs/I&O 04/10/20 20:38 Temp 36.8 Pulse 109 Resp 16 B/P (MAP) 117/64 (81) Pulse Ox 95 O2 Delivery Room Air Progress Progress Note : Time: 21:00 Progress Note X-ray with no acute findings. Patient should follow-up with her primary care provider if symptoms are not improving a couple days. He can use Tylenol ibuprofen and topical medications as needed Diagnostic Imaging Diagonstic Imaging: Xray Plain Films/CT/US/NM/MRI: hip Comments No acute findings [facility] [place], [place] NAME: MANDEEP GRAHAM [facility] REC#: [id number] PT STATUS: REG ER : 1955 PHYSICIAN: NHI JACKSON DO ADMIT DATE: 04/10/20/ER FS Signed Date of Exam:04/10/20 HIP 2-3 VIEW LEFT EXAMINATION: Pelvis, single view. Left hip, 2 additional views. COMPARISON: January 03, 2020. HISTORY: 64-year-old male, fall. Left hip pain. FINDINGS: The bones appear demineralized. The pubic symphysis and sacroiliac joints are normally aligned. The right hip is not obviously dislocated. There is a left hip prosthesis. The hardware appears intact. There is no identified periprosthetic lucency. There is no identified acute fracture. There is disc height loss at L5-S1. IMPRESSION: 1. Bone demineralization without a radiographically apparent fracture. 2. Intact left hip prosthesis without identified hardware complication. Reviewed: Reviewed by Me, Reviewed/Discussed Departure Impression Primary Impression: Contusion of left hip, initial encounter Additional Impression: Fall Qualified Codes: W19.XXXA - Unspecified fall, initial encounter Disposition: HOME, SELF-CARE Condition: Stable Departure-Patient Inst. Referrals: MICHAEL TENA MD (PCP/Family) Primary Care Physician Patient Instructions: Contusion (DC) Add. Discharge Instructions: Tylenol or ibuprofen as needed for pain 4% topical lidocaine with menthol to left hip as directed on package Follow-up with your primary care provider in 4-5 days if symptoms are not improving or sooner if needed All discharge instructions reviewed with patient and/or family. Voiced understanding. [facility]I JACKSON DO Apr 10, 2020 20:36
[2020-04-10 20:38] VITALS: BP 117/64
--- NOTE | 2020-04-10 20:58 | Diagnostic Imaging Report ---
EXAMINATION: Pelvis, single view. Left hip, 2 additional views. COMPARISON: January 03, 2020. HISTORY: 64-year-old male, fall. Left hip pain. FINDINGS: The bones appear demineralized. The pubic symphysis and sacroiliac joints are normally aligned. The right hip is not obviously dislocated. There is a left hip prosthesis. The hardware appears intact. There is no identified periprosthetic lucency. There is no identified acute fracture. There is disc height loss at L5-S1. IMPRESSION: 1. Bone demineralization without a radiographically apparent fracture. 2. Intact left hip prosthesis without identified hardware complication. Dictated by: Dictated on workstation # [id number]
--- NOTE | 2020-04-10 21:13 | NUR ---
[facility] notified of pts impending discharge and need for transportaion, they will send someone to get pt.
--- NOTE | 2020-04-10 21:34 | NUR ---
[facility] called back and is unable to come get pt, instructed them they will need to call ems for transport, number provided.
== END 2020-04-10 21:37 | disposition home or self-care (01) ==
LOC: EDUNIT# 20:24 → ER FS 20:28
DX: S70.02XA Contusion of left hip, initial encounter (principal); F32.9 Major depressive disorder, single episode, unspecified; G40.909 Epilepsy, unspecified, not intractable, without status epilepticus; Z88.8 Allergy status to other drugs, medicaments and biological substances; Z79.82 Long term (current) use of aspirin; Z20.828 Contact with and (suspected) exposure to other viral communicable diseases; Z86.73 Personal history of transient ischemic attack (TIA), and cerebral infarction without residual deficits; W01.0XXA Fall on same level from slipping, tripping and stumbling without subsequent striking against object, initial encounter; Y92.009 Unspecified place in unspecified non-institutional (private) residence as the place of occurrence of the external cause
CPT/HCPCS: 73502

== ENCOUNTER 2021-05-12 08:02 | Emergency (ER) | payer MEDICARE, MEDICAID ==
[~2021-05-12] VITALS: Ht 154.9 cm; Wt 54.4 kg
--- OUTSIDE RECORDS SUMMARY | 2021-05-12 08:06 | XMS REPORT | Clinical Summary ---
Author Author [facility] Organization [facility] Address Unknown Phone Unavailable Care Team Providers Care Office Support Clerk Name Role Phone PCP Unavailable Allergies Not on File Medications Not on file Active Problems Not on file Social History Date Tobacco Use Types Packs/Day Years Used Never Assessed Sex Assigned at Date Recorded Not on file Last Filed Vital Signs Not on file Plan of Treatment Not on file Results Not on filefrom Last 3 Months Advance Directives For more information, please contact: [phone] Patient Labor And Delivery Nurse Explanation Type Date Recorded Health Care 10/28/2013 2:30 PM Directive Health Care 10/28/2013 2:30 PM Directive
[2021-05-12] MEDS ORDERED: IBUPROFEN TABLET 200 MG TAB PO STA (08:15)
--- NOTE | 2021-05-12 08:22 | ED Fall/Injury ---
General Chief Complaint: Hip/Pelvic Problems Stated Complaint: FALL; LT LEG/HIP PAIN Source: patient, family History of Present Illness Date Seen by Provider: May 12, 2021 Time Seen by Provider: 08:06 Initial Comments 65 yo male presenting with family due to fall last night, 05/11. He is living at [facility]. The staff there told family today that they think he needs xrays and rather than having him seen when he fell or contacting his regular provider for xray orders, he was brought to the ED this am. He is mostly non verbal. He has pain to left hip with movement and palpation. No obvious bruise noted. No other complaints. Staff had not given him any medicine for pain and he has not had his regular medicines from [facility]. No other complaints of injury and no complaint of LOC or head injury. Location Injury Occurred: [facility] Occurred: yesterday Injuries/Pain Location: lower extremity (left hip) Context: unknown Loss of Consciousness: no loss of consciousness Modifying Factors: Worse With Movement Associated Symptoms (Fall): No Abdominal Pain, No Chest Pain, No Nausea/Vomiting, No Shortness of Air; Trouble Walking (not wanting to bear weight on left leg) Allergies and Home Medications Allergies Coded Allergies: metformin (Verified Allergy, Unknown, 01/02/20) Patient Home Medication List Home Medication List Reviewed: Yes Acetaminophen (Tylenol) 325 Mg Capsule, 650 MG PO Q6H PRN for PAIN-MILD (1-4) OR TEMPATURE, (Reported) Entered as Reported by: JUAN CARLOS WASSERMAN on 01/02/20 173 Aspirin (Aspirin EC) 81 Mg Tablet.dr, 81 MG PO DAILY, (Reported) Entered as Reported by: KAREN CASTRO on 01/05/20 0900 Citalopram Hydrobromide (Celexa) 20 Mg Tablet, 20 MG PO DAILY, (Reported) Entered as Reported by: JUAN CARLOS WASSERMAN on 01/02/20 173 Docusate Sodium (Docusate Sodium) 100 Mg Tablet, 100 MG PO BID, (Reported) Entered as Reported by: JUAN CARLOS WASSERMAN on 01/02/20 1735 Hydrocodone Bit/Acetaminophen (HYDROcodone/APAP 7.5/325 TAB) 1 Ea Tablet, 1 EA PO Q2HR PRN for PAIN-MODERATE (5-7) Prescribed by: BERENICE NGO on 01/07/20 1100 Ondansetron (Ondansetron Odt) 4 Mg Tab.rapdis, 4 MG PO Q6H PRN for NAUSEA/VOMITING-1ST LINE, (Reported) Entered as Reported by: KAREN CASTRO on 01/05/20 0900 Phenyleph/Pramoxin/Glycr/W.pet (Preparation H Cream) 26 Gm Cream..g., 1 APPFUL RC QID PRN for HEMMORRHOID DISCOMFORT, (Reported) Entered as Reported by: JUAN CARLOS WASESRMAN on 01/02/20 1735 Polyethylene Glycol 3350 (Miralax) 17 Gm Powd.pack, 17 GM PO Q48H, (Reported) Entered as Reported by: KAREN CASTRO on 01/05/20 0900 Tamsulosin HCl (Flomax) 0.4 Mg Cap, 0.4 MG PO DAILY@1800 Prescribed by: BRENDON KELLEY on 04/05/20 1103 Tolterodine Tartrate (Detrol LA) 4 Mg Cap, 4 MG PO DAILY Prescribed by: BRENDON KELLEY on 04/05/20 1103 Topiramate (Topiramate) 50 Mg Tablet, 50 MG PO DAILY, (Reported) Entered as Reported by: JUAN CARLOS WASSERMAN on 01/02/20 1735 Valproic Acid (As Sodium Salt) (Valproic Acid) 250 Mg/5 Ml Solution, 10 ML PO HS, (Reported) Entered as Reported by: JUAN CARLOS WASSERMAN on 01/02/20 1735 Valproic Acid (As Sodium Salt) (Valproic Acid) 250 Mg/5 Ml Solution, 5 ML PO DAILY, (Reported) Entered as Reported by: KAREN CASTRO on 01/05/20 0900 Review of Systems Review of Systems Constitutional: No chills, No fever Eyes: No Symptoms Reported Ears, Nose, Mouth, Throat: no symptoms reported Respiratory: no symptoms reported Cardiovascular: no symptoms reported Gastrointestinal: no symptoms reported Genitourinary: no symptoms reported Musculoskeletal: joint pain (left hip pain) Skin: No change in color Psychiatric/Neurological: Other (chronic deficits from prior stroke) Past Pyngaju-Vgnzyn-Hsnofw Hx Patient Social History Tobacco Use?: No Seasonal Allergies Seasonal Allergies: No Past Medical History Surgeries: Yes Orthopedic Respiratory: No Cardiac: Yes High Cholesterol Neurological: Yes Seizure Disorder, Stroke, TIA Genitourinary: No Gastrointestinal: Yes Chronic Constipation Musculoskeletal: No Endocrine: No HEENT: No Cancer: No Psychosocial: Yes Depression Integumentary: No Physical Exam Vital Signs Vital Signs - First Documented 05/12/21 08:05 Temp 37.0 Pulse 114 Resp 17 B/P (MAP) 141/93 (109) O2 Delivery Room Air Capillary Refill : Height, Weight, BMI Height: '" Weight: lbs. oz. kg; 20.00 BMI Method: General Appearance: other (chronically ill and appears older than stated age) Neck: non-tender, supple Cardiovascular: normal peripheral pulses Gastrointestinal: normal bowel sounds, non tender, soft Rectal: deferred Extremities: normal capillary refill, other (pain with palpation and movement of left hip. decreased ROM due to pain in left hip) Neurologic/Psychiatric: alert Skin: normal color, warm/dry; No ecchymosis Adele Coma Score Best Eye Response: (4) Open Spontaneously Best Verbal Response: (5) Oriented Best Motor Response: (6) Obeys Commands Adele Total: 15 Progress/Results/Core Measures Results/Orders My Orders Orders - TY YANCEY MD Pelvis With Left Hip 2-3 View (05/12/21 08:14) Ibuprofen Tablet (Motrin Tablet) (05/12/21 08:15) Vital Signs/I&O 05/12/21 08:05 Temp 37.0 Pulse 114 Resp 17 B/P (MAP) 141/93 (109) O2 Delivery Room Air Progress Progress Note #1: Progress Note Ibuprofen 400 mg for pain and inflammation. Xrays of pelvis and left hip to evaluate for fracture or dislocation or disruption of hardware to left hip from prior VIVIAN. Progress Note #2: Time: 08:32 Progress Note On my review of the 3 views of pelvis and left hip I do not appreciate any acute dislocation, bony abnormality/fracture. The hardware from prior hip arthroplasty appears to be in good position without loosening or change in position. Compared to imaging from 03/2020 it looks similar to today. Awaiting radiologist reading to see if they see anything else. Otherwise [email or web address] and [facility] may need additional assistance with ambulating and transfers. Continue Acetaminophen and Ibuprofen for pain as needed. Check back with clinic for continued concerns/problems. Progress Note #3: Time: 08:41 Progress Note Radiologist read films and did not see any acute fracture, dislocation or compromise of hardware from prior hip arthroplasty. Counseled family on results and need for pain medicine and extra assistance to help with walking/transfers. If continued pain/problems then check back with Dr. Tena. May need physical therapy to help or stronger pain meds. Use Acetaminophen and Ibuprofen as needed for pain and inflammation. Diagnostic Imaging Diagonstic Imaging: Xray Plain Films/CT/US/NM/MRI: pelvis, hip Comments NAME: MANDEEP GRAHAM MED REC#: [id number] PT STATUS: REG ER : 1955 PHYSICIAN: TY YANCEY MD ADMIT DATE: 05/12/21/ER FS Draft Date of Exam:05/12/21 PELVIS WITH LEFT HIP 2-3 VIEW INDICATION: Fall with left hip pain AP pelvis and AP and oblique views left hip are obtained. Left hip prosthesis appears in good alignment. There is no sign of device loosening. There is some chronic periarticular calcifications about the left hip prosthesis. There is underlying degenerative change of the right hip. There is osteopenia. There is no definite acute finding. IMPRESSION: Well aligned left hip prosthesis. Osteopenia and chronic change. No definite acute finding. Dictated on workstation # [id number] Dict: 05/12/2135 Trans: 05/12/21 0838 [facility] [id number] Interpreted by: BHAVIN TOMLINSON MD Electronically signed by: Reviewed: Reviewed by Me Departure Impression Primary Impression: Acute pain of left hip Additional Impressions: Fall at residential Qualified Codes: W19.XXXA - Unspecified fall, initial encounter; Y92.129 - Unspecified place in residential as the place of occurrence of the external cause Sprain of left hip Qualified Codes: S73.102A - Unspecified sprain of left hip, initial encounter Disposition: 01 HOME, SELF-CARE Condition: Stable Departure-Patient Inst. Decision time for Depature: 08:53 Referrals: MICHAEL TENA MD (PCP/Family) Primary Care Physician Patient Instructions: Preventing Falls ED, Hip Pain ED Add. Discharge Instructions: He will need additional assistance with walking and transfers until his hip contusion and pain improves. If continued problems/concerns he may need physical therapy or to work with Dr. Tena about chronic pain control. Use Acetaminophen 650 mg every 6 hours as needed for pain. May also take Ibuprofen 400 mg every 6 hours if needed for additional pain control All discharge instructions reviewed with patient and/or family. Voiced understanding. TY YANCEY MD May 12, 2021 08:21
--- NOTE | 2021-05-12 08:38 | Diagnostic Imaging Report ---
INDICATION: Fall with left hip pain AP pelvis and AP and oblique views left hip are obtained. Left hip prosthesis appears in good alignment. There is no sign of device loosening. There is some chronic periarticular calcifications about the left hip prosthesis. There is underlying degenerative change of the right hip. There is osteopenia. There is no definite acute finding. IMPRESSION: Well aligned left hip prosthesis. Osteopenia and chronic change. No definite acute finding. Dictated by: Dictated on workstation # [id number]
[2021-05-12 08:55] VITALS: BP 133/79
== END 2021-05-12 08:55 | disposition home or self-care (01) ==
LOC: EDUNIT# 08:02 → ER FS 08:04
DX: S73.102A Unspecified sprain of left hip, initial encounter (principal); G40.909 Epilepsy, unspecified, not intractable, without status epilepticus; F32.9 Major depressive disorder, single episode, unspecified; Z86.73 Personal history of transient ischemic attack (TIA), and cerebral infarction without residual deficits; Z79.899 Other long term (current) drug therapy; Z79.82 Long term (current) use of aspirin; W19.XXXA Unspecified fall, initial encounter; Y92.129 Unspecified place in nursing home as the place of occurrence of the external cause
CPT/HCPCS: 73502